=== PATIENT | female | born 1990 | race Caucasian/White ===

== ENCOUNTER → 2017-09-25 | Outpatient (CLI) | payer BC ==
[~2017-09-25] MED LIST: IBUP-1427 PO; PRENTAB26 PO; SINCALIDE INJ 1.3 MCG in SODIUM CHLORIDE 0.9% 100ML 100 ML IV ONE
--- NOTE | 2017-09-25 15:19 | DIAGNOSTIC IMAGING REPORT ---
NUCLEAR HEPATOBILIARY SCAN WITH EJECTION FRACTION IMAGING CLINICAL HISTORY: Right upper quadrant abdominal pain. COMPARISON STUDY: No priors. TECHNIQUE: Dynamic images of the liver and anterior abdomen were obtained every 5 minutes for a total of 60 minutes following the IV administration of 5.5mCi of technetium 99m Choletec. 1.3 mcg of sincalide was then injected with additional images acquired every 5 minutes for 45 minutes to calculate the gallbladder ejection fraction. FINDINGS: The hepatobiliary scan shows prompt and homogeneous hepatic uptake. There is visualized activity within the intra and extrahepatic biliary tree at 10 minutes, and within the gallbladder at 15 minutes. There is normal biliary to bowel transit, with small bowel visualized by 40 minutes. On the sincalide imaging, the gallbladder ejection fraction was measured at 42%. IMPRESSION: 1. Unremarkable nuclear hepatobiliary scan. There is no scintigraphic evidence of cholecystitis. 2. The gallbladder ejection fraction measured 42% which is normal. Electronically signed by: Gilson Oscar M.D. 09/25/2017 3:17 PM Dictated Date/Time: 09/25/2017 3:16 PM
== END | disposition home or self-care (01) ==
LOC: C.NUCL 12:01 → MERGE 13:00
PROVIDERS: ATTEND Physician Assistant

== ENCOUNTER 2023-03-13 10:07 | Observation (INO) ==
[2023-03-13] MEDS ORDERED: PENICILLIN G POTASSIUM 6 MU in DEXTROSE 5% 250 ML IV STA (11:12)
[2023-03-13] MEDS ORDERED: OXYTOCIN 30 UNITS/500 ML BAG IV PRN (11:12)
[2023-03-13] MEDS ORDERED: LIDOCAINE 1% LOCAL 20 ML VIAL INFIL PRN (11:12)
[2023-03-13 11:53] LABS: Hematocrit (blood only) 29.1 % (37.0-47.0); Mean Corpuscular Hemoglobin 31.7 pg (25.0-34.0); Mean Corpuscular Hgb Conc 34.4 g/dL (32.0-36.0); Mean Corpuscular Volume 92.4 fL (80.0-100.0); Mean Platelet Volume 9.2 fL (9.4-12.4); Platelet Count 178 K/uL (130-400); RDW Coefficient of Variation 14.6 % (11.5-14.5); RDW Standard Deviation 49.1 fL (36.4-46.3); Red Blood Count 3.15 M/uL (4.20-5.40); White Blood Count 6.46 K/ul (4.8-10.8)
[2023-03-13] MEDS ORDERED: SODIUM CHLORIDE 0.9% 250 ML IV PRN (12:07)
--- NOTE | 2023-03-13 13:03 | Ultrasound Report ---
US OB limited CLINICAL HISTORY: Evaluate estimated weight and amniotic fluid index. COMPARISON STUDY: None. FINDINGS: Real-time sonographic imaging of the fetus was performed with litigation claim representative images submitt ed. A full anatomic survey was not performed for this study. The fetus is in a cephalic presentation. There is an anterior placenta. No evidence for a subchorionic hematoma. The cervix was obscured by t he head. Amniotic fluid index is 10.5 cm. heart rate is 142 BPM. Average ultrasound age i s 37 weeks and 0 days +/- 2 weeks 4 days. Estimated weight is 6 pounds and 5 ounces +/- 15 ounc es. IMPRESSION: 1. A single viable 37 week and 0 day intrauterine gestation with a heart rate of 142 BPM. 2. Normal amniotic fluid volume. 3. Estimated weight is 6 pounds and 5 ounces +/- 15 ounces. ACT 112: Negative or not required by law. Electronically signed by: Dario Delong M.D. 03/13/2023 1:01 PM
[2023-03-13] MEDS: LACTATED RINGER'S 1,000 ML IV PRN ×2 (13:25→17:20)
[2023-03-13] MEDS ORDERED: PENICILLIN G POTASSIUM 3 MU in DEXTROSE 5% 100 ML IV PRN (14:12)
--- NOTE | 2023-03-13 17:39 | History & Physical Report ---
Date of Service March 13, 2023 Assessment & Plan (1) Amniotic fluid leaking: Plan: 32 yo at 35.3 wks with ? leaking since this morning, ROM + , Amnisure faint + with bloody show, no ferning VSS Afebrile FHR categ I contractions but Not in active Plan to observe monitor, repeat spekulum exam after trendelenburg position (2) uterine contractions in third trimester, antepartum: Admission and Anticipated Discharge Date Admission Date: March 13, 2023 History of Present Illness Primary Care Provider: José Bearden MD Late entry from this morning Patient is a 32 yo at 35.3 wks who woke up with wet underwear today, about palm size and irregular contractions but not painful No gush nor trickling She went to office where spek exam showed, no pooling, nitrazine negative and ROM plus test positive, cervix was checked digitally and it was 1 cm She was sent here She had bloody mucus on the way here We did Amnisure and it was faint positive, no ferning on slide Cervix was 1-2 cm/ thick/ -3 She had contractions every 2-4 min US showed: FINDINGS: Real-time sonographic imaging of the fetus was performed with signs and displays sales representative images submitted. A full anatomic survey was not performed for this study. The fetus is in a cephalic presentation. There is an anterior placenta. No evidence for a subchorionic hematoma. The cervix was obscured by the head. Amniotic fluid index is 10.5 cm. heart rate is 142 BPM. Average ultrasound age is 37 weeks and 0 days +/- 2 weeks 4 days. Estimated weight is 6 pounds and 5 ounces +/- 15 ounces. IMPRESSION: 1. A single viable 37 week and 0 day intrauterine gestation with a heart rate of 142 BPM. 2. Normal amniotic fluid volume. 3. Estimated weight is 6 pounds and 5 ounces +/- 15 ounces. She was dated with 8 wks US as 04/14/2023, LMP ? We kept her observed over hour, she had bloody mucus one time and no gush nor tricling I rechecked her cervix and it is 2-3 cm/ thick/ -3, posterior, feel a bag of amniotic sac Allergies Allergy/AdvReac Type Severity Reaction Status Date / Time milk AdvReac Gastrointestinal Verified 03/13/23 15:25 Upset Home Medications Medication Instructions Recorded Confirmed Type cyanocobalamin (vitamin B-12) 1,000 mcg PO DAILY 03/13/23 03/13/23 History 1,000 mcg tablet (Vitamin B-12) prenat.vits,adam,clb-iech-ptrkm 1 tab PO DAILY 03/13/23 03/13/23 History Patient History Medical History Anemia iron infusions during Asthma states is resolved 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" Surgical History History of cardiac radiofrequency ablation (RFA) 2005 Family History Daughter VSD (ventricular septal defect) ASD (atrial septal defect) Social History Smoking Status: Never smoker Hx Alcohol Use: No Hx Substance Use: No Preferred Language: Bulgarian Communication Ability: Effective Clerical Aide Required: No Beliefs That Will Affect Care: None marital status: Current Living Situation: Spouse and Family Feels Safe at Home: Yes Assistive Devices: None OB History FT Review of Systems as per Subjective / HPI Physical Exam Constitutional: WD/WN, vitals as above well developed, well nourished and comfortable Gastrointestinal (Abdomen): normal bowel sounds, soft, nontender, no hepatosplenomegaly (gravid) Genitourinary: OB Exam Monitor Tracing: + external uterine monitor used and + category I as HPI Results & Data Vital Signs (Past 12 Hours) Vital Signs Temp Pulse Resp BP 03/13/23 16:00 36.5 C 16 03/13/23 16:00 16 03/13/23 16:20 76 03/13/23 16:20 122/66 03/13/23 15:02 18 03/13/23 15:02 36.5 C 18 03/13/23 15:02 78 03/13/23 15:02 109/53 L 03/13/23 12:46 20 03/13/23 12:46 36.9 C 20 03/13/23 12:46 76 03/13/23 12:46 113/68 03/13/23 10:29 36.6 C 90 18 112/62 Laboratory Results Lab Results 03/13/23 03/13/23 03/13/23 Range/Units 11:30 11:30 11:32 WBC 6.46 (4.8-10.8) K/ul RBC 3.15 L (4.20-5.40) M/uL Hgb 10.0 L (12.0-16.0) g/dl Hct 29.1 L (37.0-47.0) % MCV 92.4 (80.0-100.0) fL MCH 31.7 (25.0-34.0) pg MCHC 34.4 (32.0-36.0) g/dL RDW Std Deviation 49.1 H (36.4-46.3) fL RDW Coeff of Shailesh 14.6 H (11.5-14.5) % Plt Count 178 (130-400) K/uL MPV 9.2 L (9.4-12.4) fL Amniotic Protein SARS-CoV-2, RNA, NAAT NEGATIVE (NEGATIVE) Blood Type O Positive Antibody Screen NEGATIVE Crossmatch See Detail 03/13/23 Range/Units 12:01 WBC (4.8-10.8) K/ul RBC (4.20-5.40) M/uL Hgb (12.0-16.0) g/dl Hct (37.0-47.0) % MCV (80.0-100.0) fL MCH (25.0-34.0) pg MCHC (32.0-36.0) g/dL RDW Std Deviation (36.4-46.3) fL RDW Coeff of Shailesh (11.5-14.5) % Plt Count (130-400) K/uL MPV (9.4-12.4) fL Amniotic Protein POS SARS-CoV-2, RNA, NAAT (NEGATIVE) Blood Type Antibody Screen Crossmatch
[2023-03-13] MEDS: BUTORPHANOL TARTRATE 1 MG/ML VIAL IV PRN (21:32)
--- NOTE | 2023-03-13 21:38 | Obstetrical Progress Note ---
Date of Service March 13, 2023 Assessment & Plan Admission and Anticipated Discharge Date Admission Date: March 13, 2023 Subjective Patient is reevaluated She has not had LOF since she came Still having contractions and they are getting more painful. Pain is 8/10 +FM FHR categ I TOCO: ctxs q 2-4 min Received 3 doses of PCN for unknown GBS She has been flat in bed for 30 min SSE: no pooling,small mucus on upper vagina and cervix is dry, no LOF with Valsalva maneuver No ferning on slide Cervix is unchanged, 2-3 cm/ thick/ firm/ -3, posterior GBS collected Discussed no signs of PPROM, contractions still present with no cervical change Recommended expectant management, pain control and observation overnight, pad for possible LOF and recheck cervix in morning She agrees All questions were answered. Results & Data Vital Signs (Past 12 Hours) Vital Signs Temp Pulse Resp BP 03/13/23 19:26 36.9 C 18 03/13/23 16:00 36.5 C 16 03/13/23 16:00 16 03/13/23 21:09 90 03/13/23 21:09 113/67 03/13/23 21:09 18 03/13/23 21:09 36.9 C 18 03/13/23 19:14 88 03/13/23 19:14 105/59 L 03/13/23 17:53 36.8 C 03/13/23 16:20 76 03/13/23 16:20 122/66 03/13/23 15:02 18 03/13/23 15:02 36.5 C 18 03/13/23 15:02 78 03/13/23 15:02 109/53 L 03/13/23 12:46 20 03/13/23 12:46 36.9 C 20 03/13/23 12:46 76 03/13/23 12:46 113/68 03/13/23 10:29 36.6 C 90 18 112/62
[2023-03-14] MEDS: BUTORPHANOL TARTRATE 1 MG/ML VIAL IV PRN (01:44)
[2023-03-14] MEDS: LACTATED RINGER'S 1,000 ML IV PRN (02:53)
--- NOTE | 2023-03-14 09:35 | Labor Progress Brief Note ---
Date of Service March 14, 2023 Assessment & Plan Admission and Anticipated Discharge Date Admission Date: March 13, 2023 Physical Exam Genitourinary: Manual OB Exam: + cervical dilation 1 cm and 2 cm, + cervical effacement 50% and + station high OB Exam Monitor Tracing: + external FHT monitor used, + external uterine monitor used, + category I and + normal FHT variability contractions have spaced out no leakage of fluid will d/c home not in labor and not ruptured Results & Data Vital Signs (Past 12 Hours) Vital Signs Temp Pulse Resp BP 03/14/23 07:24 37.1 C 82 20 99/58 L 03/14/23 04:52 16 03/14/23 04:52 36.7 C 16 03/14/23 04:54 77 107/58 L 03/14/23 03:00 74 86/50 L 03/14/23 02:59 80 85/46 L 03/13/23 23:51 18 03/13/23 23:51 36.7 C 18 03/13/23 23:53 86 03/13/23 23:53 106/55 L
== END 2023-03-14 09:46 | disposition home or self-care (01) | DRG 833 ==
LOC: OPB 10:07 → 4S1 10:11 → INTOOBSV 11:12 → 4S1 11:12

== ENCOUNTER 2023-03-29 00:22 | Inpatient (IN) ==
[2023-03-29] MEDS ORDERED: OXYTOCIN 30 UNITS/500 ML BAG IV PRN ×2 (00:44→05:07)
[2023-03-29] MEDS ORDERED: LIDOCAINE 1% LOCAL 20 ML VIAL INFIL PRN (00:44)
[2023-03-29] MEDS ORDERED: PENICILLIN G POTASSIUM 6 MU in DEXTROSE 5% 250 ML IV STA (00:51)
[2023-03-29] MEDS ORDERED: ePHEDrine sulfate 50 MG/ML AMP ONE (01:06)
[2023-03-29] MEDS ORDERED: BUPIVACAINE 0.25% PF 30 ML VIAL ONE (01:06)
[2023-03-29] MEDS ORDERED: SODIUM CHLORIDE 0.9% PF INJ 10 ML VIAL ONE (01:06)
[2023-03-29] MEDS: LACTATED RINGER'S 1,000 ML IV PRN ×2 (01:06→02:57)
[2023-03-29] MEDS ORDERED: LIDOCAINE 2%/EPINEPHRINE 1:200,000 20 ML PF ONE (01:06)
[2023-03-29] MEDS ORDERED: fentaNYL citrate PF 100 MCG/2 ML VIAL ONE (01:06)
[2023-03-29] MEDS ORDERED: fentaNYL 2MCG/ML ROPIVACAINE 1.25MG/ML 100 ML BAG EPI ONE (01:07)
--- NOTE | 2023-03-29 01:11 | History & Physical Report ---
Date of Service March 29, 2023 Assessment & Plan (1) : (2) Group B streptococcal carriage complicating : History of Present Illness Chief Complaint: labor Primary Care Provider: José Bearden MD 33 F P1001 at 37+ weeks seen in L&D and presents in active labor 8 cm dilated. GBS is positive. course uncomplicated. 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" Surgical History History of cardiac radiofrequency ablation (RFA) 2005 Family History Daughter VSD (ventricular septal defect) ASD (atrial septal defect) Social History Smoking Status: Never smoker Hx Alcohol Use: No Hx Substance Use: No Preferred Language: Estonian Communication Ability: Effective Under Trimmer Required: No Beliefs That Will Affect Care: None marital status: Current Living Situation: Spouse and Family Feels Safe at Home: Yes Safety Concerns: Feels Safe At This Time Assistive Devices: None 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 Review of Systems All systems reviewed & are unremarkable except as noted in HPI & below Physical Exam Constitutional: WD/WN, vitals as above Eyes: PERRL, conjunctivae normal, anicteric sclerae Respiratory: normal respiratory effort, lungs clear to auscultation Cardiovascular: RRR, no murmur, no edema Musculoskeletal: Extremities: extremities normal to inspection Skin: no rashes, warm and dry Neurologic: patellar DTR's 2+ bilat, sensation intact Psychiatric: A+Ox3, euthymic affect Genitourinary: Manual OB Exam: + cervical dilation 8 cm, + cervical effacement 90% and + station high OB Exam Monitor Tracing: + external FHT monitor used, + external uterine monitor used, + category I and + normal FHT variability Results & Data Vital Signs (Past 12 Hours) Vital Signs Temp Pulse Resp BP 03/29/23 00:57 36.3 C L 96 H 20 118/77 03/29/23 00:40 96 H 118/77 Code Status & VTE Plan VTE Prophylaxis Plan VTE Prophylaxis will be ordered: No Reason for no VTE drug order: Treatment not indicated Monitoring External Monitor Cat 1
[2023-03-29] MEDS ORDERED: fentaNYL 2MCG/ML ROPIVACAINE 1.25MG/ML 100 ML BAG EPI PRN (01:54)
[2023-03-29] MEDS ORDERED: NALOXONE HCL 0.4 MG/1 ML VIAL/CARP IV PRN (01:54)
[2023-03-29] MEDS ORDERED: diphenhydrAMINE 50 MG/ML VIAL IV PRN (01:54)
[2023-03-29] MEDS ORDERED: NALOXONE HCL 1 MG in SODIUM CHLORIDE 0.9% 1000ML 1,000 ML IV PRN (01:54)
[2023-03-29] MEDS ORDERED: ePHEDrine sulfate 50 MG/ML AMP IV PRN (01:54)
[2023-03-29] MEDS ORDERED: NALBUPHINE HCL INJ 10 MG/ML AMP IV PRN (01:54)
--- NOTE | 2023-03-29 01:54 | Anesthesiology Consultation ---
Date of Service March 29, 2023 Assessment & Plan ASA ASA2 Proposed Anesthesia Anesthesia Type: Labor Epidural Risk / Benefits Reviewed With: PT / POA / Parent / Guardian, Accepts Plan and Informed Consent Obtained History Height/Weight Height: 5 ft 7 in Weight: 75.75 kg Allergies Allergy/AdvReac Type Severity Reaction Status Date / Time milk AdvReac Gastrointestinal Verified 03/13/23 15:25 Upset Medications Home Medications Medication Instructions Recorded Confirmed Last Taken cyanocobalamin (vitamin B-12) 1,000 mcg PO DAILY 03/13/23 03/29/23 03/13/23 1,000 mcg tablet (Vitamin B-12) prenat.vits,adam,tqt-xpyz-fdibq 1 tab PO DAILY 03/13/23 03/29/23 03/13/23 Active Medications Generic Name Dose Route Start Last Admin Trade Name Freq PRN Reason Stop Dose Admin Lactated Ringer's 1,000 mls @ 125 mls/hr 03/29/23 00:44 03/29/23 01:06 Lr IV 03/31/23 00:43 125 mls/hr .Q8H PRN Administration L&D Protocol Protocol Ropivacaine 100 ml 03/29/23 01:54 03/29/23 02:17 Fentanyl 2mcg/Ml Ropivacaine 1.25mg/Ml 100 Ml Bag EPI 03/30/23 01:53 100 ml PRN PRN Administration Pain R/T Labor Protocol Past Medical History Medical History Anemia iron infusions during Asthma states is resolved Ketfa-Jehhqgrix-Mqxuc 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" Exercise / Class Metabolic Activity II 4-5 Yardwork/Stairs/Walk up hill Past Family History Family History Daughter VSD (ventricular septal defect) ASD (atrial septal defect) Past Surgical History Surgical History History of cardiac radiofrequency ablation (RFA) 2005 Past Anesthesia History No Hx of Anesthesia Complications and No Family Hx of Anesthesia Complications History of PONV No Hx of PONV and No Hx of Motion Sickness Social History Smoking Status: Never smoker Hx Alcohol Use: No Hx Substance Use: No Review of Systems denies fever/cough/ colds/ chest pain/ SOB/ BREANNA denies BREANNA Physical Exam Vital Signs Last Vital Signs Temp 36.3 C L 03/29/23 00:57 Pulse 123 H 03/29/23 02:24 Resp 20 03/29/23 00:57 BP 110/59 L 03/29/23 02:23 Pulse Ox 99 03/29/23 02:24 ENMT Mouth: no TMJ abnormality and no dentition abnormality Thyromental Distance: > or= 3.5 Finger Breadths Mallampati Class: II Neck neck extension not limited Respiratory normal respiratory effort; no respiratory distress Auscultation: lungs clear to auscultation bilaterally Cardiovascular Rate/Rhythm: regular rate and regular rhythm Neurologic moves all extremities Psychiatric Orientation: alert and oriented x 3 Testing Laboratory Results 03/29/23 01:02
[2023-03-29] MEDS ORDERED: ONDANSETRON INJ 2 MG/ML 2 ML VIAL IV PRN (01:55)
[2023-03-29 02:04] LABS: Hematocrit (blood only) 29.1 % (37.0-47.0); Mean Corpuscular Hemoglobin 31.8 pg (25.0-34.0); Mean Corpuscular Hgb Conc 34.4 g/dL (32.0-36.0); Mean Corpuscular Volume 92.7 fL (80.0-100.0); Mean Platelet Volume 9.8 fL (9.4-12.4); Platelet Count 184 K/uL (130-400); RDW Coefficient of Variation 14.3 % (11.5-14.5); RDW Standard Deviation 48.8 fL (36.4-46.3); Red Blood Count 3.14 M/uL (4.20-5.40); White Blood Count 7.42 K/ul (4.8-10.8)
[2023-03-29] MEDS ORDERED: PENICILLIN G POTASSIUM 3 MU in DEXTROSE 5% 100 ML IV PRN (03:45)
--- NOTE | 2023-03-29 03:46 | Labor Progress Brief Note ---
Date of Service March 29, 2023 Assessment & Plan Admission and Anticipated Discharge Date Admission Date: March 29, 2023 Physical Exam Genitourinary: Manual OB Exam: + cervical dilation 10 cm, + cervical effacement 100%, + station -2 and + amniotic fluid clear OB Exam Monitor Tracing: + external FHT monitor used, + external uterine monitor used, + category I and + normal FHT variability bedside ultrasound confirms vertex presentation Results & Data Vital Signs (Past 12 Hours) Vital Signs Temp Pulse Resp BP Pulse Ox 03/29/23 00:57 36.3 C L 96 H 20 118/77 03/29/23 03:44 78 99 03/29/23 03:39 88 100 03/29/23 03:34 104 H 100 03/29/23 03:31 101 H 108/61 03/29/23 03:29 99 H 100 03/29/23 03:24 93 H 100 03/29/23 03:19 105 H 100 03/29/23 03:15 99 H 98/56 L 03/29/23 03:14 100 H 99 03/29/23 03:09 88 99 03/29/23 03:04 110 H 99 03/29/23 02:59 105 H 99 03/29/23 03:00 113 H 93/50 L 03/29/23 02:54 108 H 100 03/29/23 02:49 106 H 99 03/29/23 02:45 100 H 105/58 L 03/29/23 02:44 96 H 99 03/29/23 02:39 103 H 99 03/29/23 02:34 108 H 99 03/29/23 02:30 18 03/29/23 02:30 37.2 C 18 03/29/23 02:29 99 03/29/23 02:29 109 H 03/29/23 02:29 109 H 107/57 L 03/29/23 02:20 18 03/29/23 02:20 18 03/29/23 02:28 105 H 111/59 L 03/29/23 02:25 104 H 18 109/55 L 03/29/23 02:24 123 H 99 03/29/23 02:23 104 H 110/59 L 03/29/23 02:21 114 H 103/58 L 03/29/23 02:19 101 H 111/56 L 99 03/29/23 02:17 103 H 109/55 L 03/29/23 02:15 107 H 18 110/58 L 03/29/23 02:14 107 H 100 03/29/23 02:13 110 H 117/63 03/29/23 02:09 108 H 97 03/29/23 02:04 115 H 98 03/29/23 00:40 96 H 118/77
[2023-03-29] MEDS ORDERED: DIPHTHERIA/TETANUS/PERTUSSIS 0.5mL SYR/VIAL (Age 7+yrs) IM ONE (05:07)
[2023-03-29] MEDS ORDERED: HYDROCORTISONE ACETATE 25 MG SUPP PR PRN (05:07)
[2023-03-29] MEDS ORDERED: BENZOCAINE 20% AER SPR 82.5 GM CAN EXT PRN (05:07)
[2023-03-29] MEDS ORDERED: ACETAMINOPHEN 325 MG TAB PO PRN (05:07)
--- NOTE | 2023-03-29 05:10 | Delivery Summary ---
Vaginal Delivery Summary Date of Service March 29, 2023 Vaginal Delivery Summary Delivery Note live male JACINTO with delayed cord clamping and Apgars 9/9 weight pending. Cord blood obtained followed by spontaneous delivery of intact placenta with 3VC. Small 1st degree vagianl tear repaired with 3/0 Vicryl. EBL 150 ml. Final sponge, needle and instrument count are correct. Mom and baby stable.
[2023-03-29] MEDS ORDERED: CYANOCOBALAMIN (B-12) 500 MCG TABLET PO SCH (09:00)
[2023-03-29] MEDS ORDERED: NON-FORMULARY MEDICATION (Prenat.Vits,Cal,Min-Iron-Folic Tablet) PO SCH (09:00)
[2023-03-29] MEDS: PRENATAL VITAMIN 1 TAB PO SCH (09:15)
[2023-03-29] MEDS: DOCUSATE SODIUM 100 MG CAP PO SCH (09:15)
[2023-03-29] MEDS ORDERED: MEASLES, MUMPS & RUBELLA VIRUS VIAL SQ ONE (11:04)
--- NOTE | 2023-03-29 17:41 | Anesthesia Procedure Note ---
Date of Service March 29, 2023 Anesthesia Post Epidural Note Vital Signs Vital Signs: Temp Pulse Resp BP Pulse Ox O2 Del Method 98.8 F 97 H 16 98/61 L 97 Room Air 03/29/23 15:30 03/29/23 15:30 03/29/23 15:30 03/29/23 15:30 03/29/23 15:30 03/29/23 15:30 Notes Mental Status: alert / awake / arousable and participated in evaluation Nausea / Vomiting: adequately controlled Pain: adequately controlled Airway Patency, RR, SpO2: stable & adequate BP & HR: stable & adequate Hydration State: stable & adequate Neuraxial Anesthesia: was administered and sensory block is resolving Anesthetic Complications: no major complications apparent and Pt Satisfied with anesthetic care Epidural: Removed without complications and With tip intact
[2023-03-29] MEDS: IBUPROFEN 600 MG TAB PO PRN (18:24)
[2023-03-30 06:47] LABS: Hematocrit (blood only) 25.8 % (37.0-47.0); Hemoglobin 8.6 g/dl (12.0-16.0); Mean Corpuscular Hemoglobin 31.9 pg (25.0-34.0); Mean Corpuscular Hgb Conc 33.3 g/dL (32.0-36.0); Mean Corpuscular Volume 95.6 fL (80.0-100.0); Mean Platelet Volume 9.7 fL (9.4-12.4); Platelet Count 144 K/uL (130-400); RDW Coefficient of Variation 14.6 % (11.5-14.5); White Blood Count 7.14 K/ul (4.8-10.8)
[2023-03-30] MEDS: DOCUSATE SODIUM 100 MG CAP PO SCH (09:06)
[2023-03-30] MEDS: IBUPROFEN 600 MG TAB PO PRN (09:06)
[2023-03-30] MEDS: PRENATAL VITAMIN 1 TAB PO SCH (09:06)
--- NOTE | 2023-03-30 09:45 | Obstetrical Progress Note ---
Date of Service March 30, 2023 Assessment & Plan (1) Normal course: PPD #1 pt doing well wishes to be discharged home Subjective Ambulation: ambulating normally Voiding: no voiding problems Passing Gas:: Yes Diet Tolerance:: regular diet Lochia:: Small Feeding Type:: breast feeding Review of Systems All systems reviewed & are unremarkable except as noted in HPI & below Physical Exam Constitutional WD/WN, vitals as above well developed and well nourished Eyes PERRL, conjunctivae normal, anicteric sclerae Neck trachea midline, no thyromegaly Respiratory normal respiratory effort, lungs clear to auscultation Auscultation: no crackles, no rales and no wheezes Cardiovascular RRR, no murmur, no edema Gastrointestinal (Abdomen) normal bowel sounds, soft, nontender, no hepatosplenomegaly Uterus is below umbilicus Musculoskeletal no cyanosis or clubbing, extremities motor strength 5/5 Skin no rashes, warm and dry Neurologic patellar DTR's 2+ bilat, sensation intact Psychiatric A+Ox3, euthymic affect Genitourinary normal external appearance Results & Data Vital Signs (Past 12 Hours) Vital Signs Temp Pulse Resp BP Pulse Ox O2 Del Method 03/30/23 09:07 37.0 C 84 20 102/66 100 Room Air 03/30/23 03:42 37.2 C 80 18 111/73 03/29/23 23:52 36.8 C 80 18 99/64 L
[2023-03-30] MEDS ORDERED: bisacodyL 5 MG TABEC PO SCH (20:00)
[2023-03-31] MEDS ORDERED: bisacodyL 10 MG SUPP PR PRN (05:07)
== END 2023-03-30 13:35 | disposition home or self-care (01) | DRG 807 ==
LOC: OPB 00:22 → 4S1 00:25 → 4E2 09:24

== ENCOUNTER 2024-06-12 01:29 | Inpatient (IN) ==
[2024-06-12] MEDS ORDERED: OXYTOCIN 30 UNITS/NSS 30 UNITS/500 ML BAG IV PRN ×2 (02:13→11:47)
[2024-06-12] MEDS ORDERED: LIDOCAINE 1% LOCAL 20 ML VIAL INFIL PRN (02:13)
[2024-06-12] MEDS ORDERED: ROPIVACAINE 0.5% PF 5 MG/ML 20 ML VIAL EPI PRN (02:17)
[2024-06-12] MEDS ORDERED: ePHEDrine sulfate 50 MG/ML AMP IV PRN (02:17)
[2024-06-12] MEDS ORDERED: diphenhydrAMINE 50 MG/ML VIAL IV PRN (02:17)
[2024-06-12] MEDS ORDERED: NALBUPHINE HCL 5 MG in SYRINGE 0 ML IV PRN (02:17)
[2024-06-12] MEDS ORDERED: NALOXONE HCL 1 MG in SODIUM CHLORIDE 0.9% 1,000 ML IV PRN (02:17)
[2024-06-12] MEDS ORDERED: NALOXONE HCL 0.4 MG/1 ML VIAL/CARP IV PRN (02:17)
[2024-06-12] MEDS ORDERED: LIDOCAINE 2% MPF LOCAL 5 ML VIAL EPI PRN (02:17)
[2024-06-12] MEDS ORDERED: BUPIVACAINE 0.25% PF 30 ML VIAL EPI PRN (02:17)
[2024-06-12] MEDS ORDERED: SODIUM CHLORIDE 0.9% PF INJ 10 ML VIAL EPI PRN (02:17)
[2024-06-12] MEDS ORDERED: ONDANSETRON INJ 2 MG/ML 2 ML VIAL IV PRN (02:17)
[2024-06-12] MEDS ORDERED: fentaNYL citrate PF 100 MCG/2 ML VIAL EPI PRN (02:17)
--- NOTE | 2024-06-12 02:30 | Anesthesiology Consultation ---
Date of Service June 12, 2024 Assessment & Plan ASA ASA2 Proposed Anesthesia Anesthesia Type: Labor Epidural Risk / Benefits Reviewed With: PT / POA / Parent / Guardian, Accepts Plan and Informed Consent Obtained History Height/Weight Height: 5 ft 6 in Weight: 73.936 kg Allergies Allergy/AdvReac Type Severity Reaction Status Date / Time milk AdvReac Gastrointestinal Verified 06/12/24 02:18 Upset Medications Home Medications Medication Instructions Recorded Confirmed Last Taken cyanocobalamin (vitamin B-12) 1,000 mcg PO DAILY 03/13/23 06/12/24 06/11/24 1,000 mcg tablet (Vitamin B-12) prenat.vits,adam,kgk-boqc-bxetf 1 tab PO DAILY 03/13/23 06/12/24 06/11/24 Past Medical History Medical History Anemia iron infusions during Asthma states is resolved Ndwif-Trynafxfn-Fdgtv 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" Exercise / Class Metabolic Activity II 4-5 Yardwork/Stairs/Walk up hill Past Family History Family History Daughter VSD (ventricular septal defect) ASD (atrial septal defect) Past Surgical History Surgical History History of cardiac radiofrequency ablation (RFA) 2005 Past Anesthesia History No Hx of Anesthesia Complications and No Family Hx of Anesthesia Complications History of PONV No Hx of PONV and No Hx of Motion Sickness Social History Smoking Status: Never smoker Hx Alcohol Use: No Hx Substance Use: No Review of Systems denies fever/cough/ colds/ chest pain/ SOB/ BREANNA denies BREANNA Physical Exam Vital Signs Last Vital Signs Temp 36.8 C 06/12/24 01:50 Pulse 93 H 06/12/24 01:47 Resp 18 06/12/24 01:50 BP 107/56 L 06/12/24 01:47 ENMT Mouth: no TMJ abnormality and no dentition abnormality Thyromental Distance: > or= 3.5 Finger Breadths Mallampati Class: II Neck neck extension not limited Respiratory normal respiratory effort; no respiratory distress Auscultation: lungs clear to auscultation bilaterally Cardiovascular Rate/Rhythm: regular rate and regular rhythm Neurologic moves all extremities Psychiatric Orientation: alert and oriented x 3
--- NOTE | 2024-06-12 02:40 | History & Physical Report ---
Date of Service June 12, 2024 Assessment & Plan (1) uterine contractions in third trimester, antepartum: Plan: Admit in active labor Anticipate normal delivery (2) : Admission and Anticipated Discharge Date Admission Date: June 12, 2024 History of Present Illness Chief Complaint: onset of labor Primary Care Provider: José Bearden MD 34 F P2002 at 36.1 weeks admitted in active labor. GBS is unknown. uncomplicated. 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" Surgical History History of cardiac radiofrequency ablation (RFA) 2005 Family History Daughter VSD (ventricular septal defect) ASD (atrial septal defect) Social History Smoking Status: Never smoker Hx Alcohol Use: No Hx Substance Use: No Preferred Language: Azerbaijani Communication Ability: Effective Telecommunications Project Manager Required: No Beliefs That Will Affect Care: None marital status: Current Living Situation: Spouse and Family Feels Safe at Home: Yes Assistive Devices: None 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 Review of Systems All systems reviewed & are unremarkable except as noted in HPI & below Physical Exam Constitutional: WD/WN, vitals as above Eyes: PERRL, conjunctivae normal, anicteric sclerae Respiratory: normal respiratory effort, lungs clear to auscultation Cardiovascular: RRR, no murmur, no edema Gastrointestinal (Abdomen): Inspection/Auscultation: abdomen normal to inspection Musculoskeletal: Extremities: extremities normal to inspection Skin: no rashes, warm and dry Neurologic: patellar DTR's 2+ bilat, sensation intact Psychiatric: A+Ox3, euthymic affect Genitourinary: Manual OB Exam: + cervical dilation 5 cm, + cervical effacement 50% and + station -2 OB Exam Monitor Tracing: + external FHT monitor used, + external uterine monitor used, + category I and + normal FHT variability Results & Data Vital Signs (Past 12 Hours) Vital Signs Temp Pulse Resp BP 06/12/24 01:50 36.8 C 18 06/12/24 01:47 93 H 107/56 L Monitoring External Monitor Cat 1
[2024-06-12] MEDS: LACTATED RINGER'S 1,000 ML IV PRN (02:43)
[2024-06-12] MEDS: PENICILLIN GK 6 MU in DEXTROSE 5% 250 ML IV STA (02:43)
[2024-06-12] MEDS: LIDOCAINE 2%/EPINEPHRINE 1:200,000 20 ML PF EPI STA (03:03)
[2024-06-12] MEDS: fentaNYL citrate PF 100 MCG/2 ML VIAL EPI STA (03:03)
[2024-06-12] MEDS: BUPIVACAINE 0.25% PF 30 ML VIAL EPI STA (03:03)
[2024-06-12] MEDS: fentANYL 2 MCG/ML BUPIVacaine 0.125%-NSS 100ML BAG EPI PRN (03:04)
[2024-06-12 03:15] LABS: Hematocrit (blood only) 28.3 % (37.0-47.0); Hemoglobin 9.5 g/dl (12.0-16.0); Mean Corpuscular Hemoglobin 31.6 pg (25.0-34.0); Mean Corpuscular Hgb Conc 33.6 g/dL (32.0-36.0); Mean Platelet Volume 9.2 fL (9.4-12.4); Platelet Count 162 K/uL (130-400); RDW Coefficient of Variation 14.6 % (11.5-14.5); RDW Standard Deviation 50.4 fL (36.4-46.3); Red Blood Count 3.01 M/uL (4.20-5.40)
[2024-06-12] MEDS: SODIUM CHLORIDE 0.9% PF INJ 10 ML VIAL ONE (04:16)
[2024-06-12] MEDS: fentANYL 2 MCG/ML BUPIVacaine 0.125%-NSS 100ML BAG ONE (04:16)
[2024-06-12] MEDS: fentaNYL citrate PF 100 MCG/2 ML VIAL ONE (04:16)
[2024-06-12] MEDS: LIDOCAINE 2%/EPINEPHRINE 1:200,000 20 ML PF ONE (04:16)
[2024-06-12] MEDS: ePHEDrine sulfate 50 MG/ML AMP ONE (04:16)
[2024-06-12] MEDS: BUPIVACAINE 0.25% PF 30 ML VIAL ONE (04:16)
[2024-06-12] MEDS: SODIUM CHLORIDE 0.9% PF INJ 10 ML VIAL EPI STA (04:17)
[2024-06-12] MEDS: PENICILLIN GK 3 MU in DEXTROSE 5% 100 ML IV PRN (06:14)
--- NOTE | 2024-06-12 06:35 | Labor Progress Brief Note ---
Date of Service June 12, 2024 Assessment & Plan Admission and Anticipated Discharge Date Admission Date: June 12, 2024 Physical Exam Genitourinary: Manual OB Exam: + cervical dilation 5 cm, + cervical effacement 90%, + station -2 and + amniotic fluid clear OB Exam Monitor Tracing: + external FHT monitor used, + external uterine monitor used, + category I and + normal FHT variability AROM with Amni-hook clear fluid will start Oxytocin to augment contractions Results & Data Vital Signs (Past 12 Hours) Vital Signs Temp Pulse Resp BP Pulse Ox 06/12/24 06:30 96 H 100 06/12/24 06:28 88 114/57 L 06/12/24 06:25 81 99 06/12/24 06:20 80 98 06/12/24 06:15 101 H 98 06/12/24 06:13 93 H 98/58 L 06/12/24 06:10 90 98 06/12/24 06:05 75 98 06/12/24 06:01 18 06/12/24 06:01 18 06/12/24 06:00 77 97 06/12/24 05:58 78 89/55 L 06/12/24 05:55 76 97 06/12/24 05:50 81 97 06/12/24 05:45 82 98 06/12/24 05:43 79 96/52 L 06/12/24 05:40 87 98 06/12/24 05:35 82 98 06/12/24 05:34 84 101/55 L 06/12/24 05:30 83 98 06/12/24 05:29 18 06/12/24 05:29 18 06/12/24 05:25 89 99 06/12/24 05:20 87 96 06/12/24 05:15 81 98 06/12/24 05:13 85 93/51 L 06/12/24 05:10 81 97 06/12/24 05:05 76 96 06/12/24 05:00 72 96 06/12/24 04:58 83 90/54 L 06/12/24 04:55 86 96 06/12/24 04:50 86 97 06/12/24 04:45 85 98 06/12/24 04:43 78 99/55 L 06/12/24 04:40 78 97 06/12/24 04:35 80 97 06/12/24 04:30 18 06/12/24 04:30 86 97 06/12/24 04:28 81 92/54 L 06/12/24 04:25 81 97 06/12/24 04:20 77 97 06/12/24 04:15 18 06/12/24 04:15 79 98 06/12/24 04:14 78 99/59 L 06/12/24 04:10 80 97 06/12/24 04:05 89 98 06/12/24 04:00 91 H 97 06/12/24 03:58 87 95/54 L 06/12/24 03:55 80 97 06/12/24 03:50 82 97 06/12/24 03:45 18 06/12/24 03:45 84 97 06/12/24 03:44 81 95/54 L 06/12/24 03:40 80 98 06/12/24 03:35 85 97 06/12/24 03:30 88 97 06/12/24 03:28 93 H 106/59 L 06/12/24 03:25 85 97 06/12/24 03:20 83 97 06/12/24 03:15 18 06/12/24 03:15 89 97 06/12/24 03:12 93 H 107/59 L 06/12/24 03:10 18 06/12/24 03:10 98 06/12/24 03:10 100 H 06/12/24 03:10 86 105/57 L 06/12/24 03:08 87 105/75 06/12/24 03:06 87 108/56 L 06/12/24 03:05 18 06/12/24 03:05 88 98 06/12/24 03:04 85 108/55 L 06/12/24 03:02 90 111/57 L 06/12/24 03:01 91 H 109/55 L 06/12/24 03:00 18 06/12/24 03:00 94 H 99 06/12/24 02:55 97 H 96 06/12/24 02:50 113 H 100 06/12/24 02:48 121 H 92 06/12/24 02:45 100 H 100 06/12/24 01:50 36.8 C 18 06/12/24 01:47 93 H 107/56 L
[2024-06-12] MEDS: OXYTOCIN 30 UNITS/NSS 30 UNITS/500 ML BAG IV PRN (07:18)
--- OUTSIDE RECORDS SUMMARY | 2024-06-12 11:39 | External Medical Summary | Summary of Care ---
Author Name Unknown Organization [facility] Address [address] [place] [address] Phone [phone] Care Team Providers Care Manager Wealth Management Name Role Phone José Bearden MD Primary Care Provider [phone] Reason for Visit * Reason Onset Date Comments Status Check Anemia Follow-Up 05/24/2024 Encounter Details Date Type Department Care Team (Late st Contact Info) Description 05/24/2024 2:00 PM EDT Pharmacy Pharmacy, [place] [address], [place] [id number] Clinic, Anemia [address], [place] [id number] Antepartum anemia complicating * Allergies Active Allergy Reactions Criticality Noted Date Comments Lactose Intolerance 12/06/2005 documented as of this encounter (statuses as of 05/24/2024) Medications Medication Sig Dispensed Refills Start Date End Date Status Fluticasone Propionate 50 MCG/ACT Nasal Suspension Administer 1 [place] into nostril in the morning. Active Ketotifen Fumarate 0.025 % Ophthalmic Solution 1 Drop in the morning and 1 Drop before bedtime. Active Vitamin 27-0.8 MG Oral Tablet Take by mouth . Active B-12 50 MCG Oral Tablet Take by mouth. Active Vitamin B-12 1000 MCG Oral Tablet (Cyanocobalamin) Take 1 Tablet by mouth in the morning. 30 Tablet 5 04/16/2024 Active documented as of this encounter (statuses as of 05/24/2024) Active Problems Problem Noted Date Diagnosed Date Iron deficiency anemia 04/29/2024 Echogenic intracardiac focus of fetus on ultrasound 02/16/2024 Last Assessment & Plan: Reviewed that today's ultrasound notes an echogenic intracardiac focus (EIF). Explained that in a woman who is at low risk for aneuploidy (age less than 35, normal genetic screening), with an otherwise normal ultrasound, echogenic intracardiac focus (EIF) is generally considered a normal variant of and no further work-up is recommended. Advised, however, that the only definitive method of detecting aneuploidy is with amniocentesis. Explained that an echogenic intracardiac focus (EIF) has no impact on cardiac function. Patient desires genetic screening in . We discussed cffDNA and it was ordered today. 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 Asymptomatic. Saw cardiology 12/04/22 who states ""The Hrenq-Kmaxttquh-Idhge he has been cured. She has no history suggestive of any significant arrhythmias. No further evaluation is necessary. She may proceed with delivery in the standard fashion without any restrictions" Last Assessment & Plan: Discussion 1. Arrhythmia that occurs in the absence of organic heart disease is almost always benign. 2. Treatment for intermittent symptoms is indicated based on severity of patient symptoms and interference with quality of life. 3. Treatment is always indicated for sustained symptomatic arrhythmia. 4. Ideally, should be postponed until the arrhythmia has been eliminated or at least controlled, preferably by nonpharmacologic means. Recommendations 1. Discussed increased risk of arrhythmia exacerbations in . 2. Recommend limiting caffeine intake and other stimulants. Normal 12/12/2023 Short interval between pregn ancies complicating , antepartum 12/12/2023 Overview: Last delivery 03/2023 Last Assessment & Plan: CONSIDERATIONS: Reviewed that a short Inter- Interval (IPI) may place the patient at an increased risk for , low weight, and SGA . IPI is defined as less than a year from the time of delivery of one to conception of the next . Some studies show that a short IPI may be associated with an increased risk for maternal , third trimester bleeding, premature rupture of membranes, puerperal endometritis, and anemia as well as placental abruption. RECOMMENDATION: There are no quality data to support delaying conception after early loss to prevent subsequent early loss or other complications. Small observational studies have shown no benefit to delayed conception after early loss. After a stillbirth, we suggest women wait at least 6 months before conceiving again. After a delivery, we suggest women wait 12 months before conceiving again. Interdelivery interval (IDI) of 18 to 24 months have not been significantly associated with maternal morbidity in women undergoing Trial of Labor After . Family history of congenital heart defect 2023 Overview: G1 daughter with ASD/VSD, requiring open heart surgery. Last Assessment & Plan: She presents for a anatomy survey. She has a history of WPW s/p ablation and this is a short interval . Her first child was born with an ASD/VSD. We reviewed the results of today's ultrasound. The estimated weight is appropriate for gestational age An echogenic intracardiac focus is noted. The remainder of the visualized anatomy is unremarkable in appearance. There are no additional cardiac findings appreciated. The amniotic fluid amount appears normal. We discussed that ultrasound is not able to identify all anomalies, but it is reassuring that no anomalies were seen today. Polyp of cervix 12/12/2023 Overview: Noted on exam at [facility] Antepartum anemia complicating 023 Overview: Anemic at 28w. Recommend IV iron Estimated Date of Delivery Comme nts Yes 07/09/2024 Based on Ultraso und documented as of this encounter (statuses as of 05/24/2024) Resolved Problems Problem Noted Date Diagnosed Date Resolved Date GBS (group B Streptococcus c april), +RV culture, currently 03/20/2023 04/03/2023 Maternal asthma complicating 11/04/2022 04/03/2023 Last Assessment & Plan: CONSIDERATIONS: Asthma symptoms may improve, worsen or remain unchanged in severity in . Asthma is generally managed the same in as in the non- patient, as asthma-control medications are considered safe in . If asthma is well-controlled with medications prior to , it is recommended to continue the same medication regimen during . A patient should seek medical care immediately if an asthma flare does not respond to therapy. Mild and well-controlled moderate asthma can be associated with excellent maternal and outcomes. Severe and poorly controlled asthma may be associated with increased morbidity and mortality. Asthma management includes monitoring of lung function with pulmonary function testing (when indicated), avoidance of triggers (such as tobacco smoke, mold, dust mite exposure, animal dander and cockroaches), and a step-care approach to pharmacologic therapy based on the severity of the patient's asthma. RECOMMENDATIONS: Inhaled corticosteroids are the mainstay of therapy for all patients except those with intermittent asthma. o If patients are routinely requiring rescue inhaler (such as albuterol, Ventolin, ProAir, Atrovent, or Proventil) use more than twice weekly, we recommend adding a low-dose inhaled corticosteroid. [Pulmicort (budesonide) is preferred to use in .] o If patients are routinely requiring rescue inhaler use daily, we recommend adding a combined low-dose inhaled corticosteroid/long-acting beta-agonist [such as Advair (fluticasone/salmeterol) or Symbicort (budesonide/formoterol)] or a medium dose inhaled corticosteroid. o Patient should discuss these treatment options with her primary OB provider or PCP. Typically, patients do not need stress dose steroids as long as they continue their usual dose perioperatively (or during labor) and do not have primary renal failure or other problems with the pituitary axis. Medications such as prostaglandin F2a (including Hemabate), ergonovine, and indomethacin (in patients who are aspirin allergic) should be used with caution. Patients with moderate or severe persistent asthma should have Maternal- Medicine ultrasound for anatomy at 19-20 weeks. surveillance with growth ultrasounds and non-stress tests should be considered starting at 32 weeks. Supervision of high risk pre gnancy in third trimester 11/01/2022 04/03/2023 Need for rubella vaccination 09/10/2022 04/03/2023 Overview: Will need vaccinated Supervision of other normal , antepartum 09/05/2022 11/04/2022 Family history of cardiac disorder 09/05/2022 04/03/2023 Overview: -Pt with Luque Parkinson White syndrome, s/p cardiac ablation 2005 -First child born 10/09/2013 with ASD and VSD, s/p repair at 4 months of age at [facility] [Doing well now, aged 9 years] -Declines Genetic counseling Last Assessment & Plan: We reviewed that the risk for congenital cardiac defect in any is about 0.5% but this increases to 2-3% for any cardiac defect when there is an affected first degree relative of the fetus (parent or sibling). echo may not detect small VSD (<2mm) but is effective in diagnosis of most cyanotic lesions and many other clinically relevant cardiac defects. Today's exam did not suggest any evidence of cardiac abnormality. Anemia during 08/09/201303/2022 , normal first 03/01/201310/02 Overview: Pt received tdap 08/20/13 Helena Soria RN Patient declined flu vaccine. 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 She likely attributes this to second trimester . -Declined genetic counseling -Per cardiology 12/04/22: "The Ojbyi-Uhkmgyrqq-Cfurq he has been cured. She has no history suggestive of any significant arrhythmias. No further evaluation is necessary. She may proceed with delivery in the standard fashion without any restrictions" Last Assessment & Plan: Follow-up with cardiology scheduled. If any further medical management is needed, please advise so that we can determine whether growth surveillance is recommended. 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 11/05/2022 Overview: ICD-10 update of inactive term BENIGN NEOPLASM SKIN NOS 03/27/200403/2022 documented as of this encounter (statuses as of 05/24/2024) Immunizations Name Administration Dates Next Due DTWP HIB - Dipth/Tet/Whole C ell Pert/HIB 06/19/1995,10/08/1991,1990, 990,1990 HIB PRP-OMP, 3 dose (Pedvax) 1990 HPV Vaccine, 4-Valent 08/01/2009,05/31/2009 Hepatitis B, 0-19 yrs 04/14/2002,07/02/2001,05/01 MMR - Measles/Mumps/Rubella Vaccine 06/19/1995,0 06/25/1991 OPV - Polio Virus Vaccine (Oral) 995,10/08/1991,1990, 990 TDAP (age 10 and older)(Boostrix) 08/20/2013 documented as of this encounter Social History Tobacco Use Types Packs/Day Years Used Date Smoking Tobacco: Never Smokeless Tobacco: Never Comments:no passive smoke ex posure Alcohol Use Standard Drinks/Week Comments Not Currently 0 (1 standard drink = 0.6 oz pur e alcohol) socially PHQ-2 Answer Date Recorded PHQ Adult Total Score 0 04/14/2024 Hunger Vital Sign Answer Date Recorded Within the past 12 months, y ou worried that your food would run out before you got the money to buy more. Never true 04/14/20 Within the past 12 months, t he food you bought just didn't last and you didn't have money to get more. Never true 04/14/2024 [place] Depression Scale Answer Date Recorded [place] Depression Scale Total 0 12/12/2023 The thought of harming myself has occurred to me . Never 12/12/2023 Childcare Answer Date Recorded Do you feel overwhelmed with taking care of a child, family member or friend? No 04/14/2024 Does your family need help f inding childcare? (Household - for ages 0-17 years) Not on file 04/14/2024 Clothing Answer Date Recorded Have you been unable to get clothing when it was really needed? No 04/14/2024 Is your family able to get c lothes or diapers when needed? (Household - for ages 0-17 years) Not on file 04/14/2024 Personal Safety Answer Date Recorded Do you feel unsafe or have concerns for your saf ety? No 04/14/2024 Do you have concerns for you r family's safety? (Household - for ages 0-17 years) Not on file 04/14/2024 Utilities Answer Date Recorded Do you have trouble paying y our heating, water, or electric bill? No 04/14/2024 Is your family able to pay t he heat, water, or electric bill? (Household - for ages 0-17 years) Not on file 04/14/2024 Does your family have access to good internet? (Household - for ages 0-17 years) Not on file 04/14/2024 Employment Status Answer Date Recorded Are you unemployed or without regular income? No 04/14/2024 Does the household have a re gular source of income? (Household - for ages 0-17 years) Not on file 04/14/2024 Social Connections Answer Date Recorded How often do you feel lonely or isolated from th ose around you? Never 04/14/2024 Financial Resource Strain Answer Date R ecorded Do you have any trouble payi ng for your medications, or do you think you might in the future? No 04/14/2024 Does your family have troubl e paying for medicine? (Household - for ages 0-17 years) Not on file 04/14/2024 Transportation Needs Answer Date Record ed READ ONLY Do you have troubl e getting a ride to medical visits or work? Never True 04/14/2024 Does your family have a hard time getting a ride to doctors visits? (Household - for ages 0-17 years) Not on file 04/14/2024 Has lack of transportation k ept you from medical appointments, meetings, work, or from getting things needed for daily living? Check all that apply. (Adult - for ages 18 years and over) Not on file 04/14/2024 Do you (or your family) have trouble finding or paying for a ride (transportation)? (Household - for ages 0-17 years) Not on file 04/14/2024 Housing Stability Answer Date Recorded Do you currently live in a s helter or have no steady place to sleep at night? No 04/14/2024 READ ONLY Do you think you a re at risk of becoming homeless? No 04/14/2024 Does your family worry about paying for your home or becoming homeless? (Household - for ages 0-17 years) Not on file 0 04/14/2024 Are you homeless or worried that you might be in the future? (Adult - for ages 18 years and over) Not on file Are you (or your family) kumar eless or worried that you might be in the future? (Household - for ages 0-17 years) Not on file Food Insecurity Answer Date Recorded Do you need food for this week? No 04/14/2024 Are you able to get enough f ood for your family? (Household - for ages 0-17 years) Not on file 04/14/2024 Does your family need food t his week? (Household - for ages 0-17 years) Not on file 04/14/2024 Do you always have enough fo od for your family? (Household - for ages 0-17 years) Not on file 04/14/2024 Estimated Date of Delivery Comme nts Yes 07/09/2024 Based on Ultraso und Sex and Gender Information Value Date Recorded Sex Assigned at Female 09/05/2022 9:50 AM EDT Gender Identity Female 09/05/2022 9:50 AM EDT Sexual Orientation Straight 09/05/2022 9: 50 AM EDT Job Start Date Occupation Industry Not on file Not on file Not on file documented as of this encounter Progress Notes * Shellie Rajput RPh - 05/24/2024 2:57 PM EDT CBCd, ferritin, iron screen, retic panel, B12, FA ordered for 06/21/24. Shellie Rajput PharmD, [facility] Clinical Pharmacist [facility] (P: [phone]) 05/24/2024 2:58 PM * Mary Ellen Chiu, mobile patrol officer - 05/24/2024 1:19 PM EDT Patient Phone Numbers Call to patient to schedule labs. Patient received Venofer 300 mg x 3 on 05/05/2024, 05/14/2024 and 05/21/2024. Labs due on 06/21/2024. GA: [id number] Estimated Date of Delivery: 07/09/24 Pharmacist - please place appropriate lab orders. Thank you, Mary Ellen Chiu Supply Chain Specialist [facility] 05/24/2024,1:37 PM documented in this encounter Plan of Treatment Upcoming Encounters Date Type Department Care Team (Late st Contact Info) Description 06/02/2024 10:30 AM EDT Office Visit [facility] [address] [place] [id number] January Wild PA-C [address] [place] [id number] 06/21/2024 8:30 AM EDT [facility] [address] [phone] Luis Alberto Villanueva Nara [address] [id number] 06/22/2024 9:30 AM EDT Pharmacy Pharmacy, [address] [address] Clinic, Anemia [facility] [place] [address] [phone] (work) Scheduled Orders Name Type Priority Associated Diagnoses Orde r Schedule CBC WITH WBC DIFFERENTIAL Lab Routine Antepartum anemia complicating Expected: 06/21/2024, Expires: 04/23/2025 IRON SCREEN, INCLUDING TIBC Lab Routine Antepartum anemia complicating Expected: 06/21/2024, Expires: 04/23/2025 FERRITIN Lab Routine Antepartum anemia complicating Expected: 06/21/2024, Expires: 04/23/2025 RETICULOCYTE PANEL Lab Routine Antepartum anemia complicating Expected: 06/21/2024, Expires: 04/23/2025 VITAMIN B12 Lab Routine Antepartum anemia complicating Expected: 06/21/2024, Expires: 04/23/2025 FOLIC ACID Lab Routine Antepartum anemia complicating Expected: 06/21/2024, Expires: 04/23/2025 Health Maintenance Due Date Last Done Comments GARDASIL-HPV IMMUNIZATION SERIES (3 - 3-dose series) 12/01/2009 08/01/2009, 05/31/2009 COVID-19 Vaccine (2022- season) 2023 DTaP,Tdap,and Td Vaccines (8 - Td or Tdap) 08/20/2023 08/20/2013, 12/24/2005, 06/19/1995, Additional history exists Influenza Vaccine (FLU shot) (Season Ended) 2024 Depression Screening 04/14/2025 04/14/2024 Pap Smear 12/12/2026 12/12/2023, /, 12/23/2016, Additional history exists Cervical Cancer Screening 12/12/2028 HPV/Co-Test 12/12/2028 12/12/2023 Hepatitis B Completed 04/14/2002, 01/2001, 05/19/2001 MENINGOCOCCAL (MENACTRA/MENVEO) Aged Out No longer eligible based on patient's age to complete this topic Pneumococcal Vaccine: Pediatrics (0 to 5 Years) and At-Risk Patients (6 to 64 Years) Aged Out No longer eligible based on patient's age to complete this topic documented as of this encounter Medical Devices Not on filedocumented as of this encounter Visit Diagnoses Diagnosis Antepartum anemia complicating - Primary Anemia, antepartum documented in this encounter Care Teams Manager Wealth Management Relationship Specialty Start Date End Date José Bearden MD [address] [facility] [place] [address] PCP - General 03/27/04 documented as of this encounter
--- OUTSIDE RECORDS SUMMARY | 2024-06-12 11:39 | External Medical Summary | Summary of Care ---
Author Name Unknown Organization [facility] Address [address] [place] [address] Phone [phone] Care Team Providers Care Senior Treasury Consultant Name Role Phone José Bearden MD Primary Care Provider +1- [phone] Reason for Visit * Reason Comments Return Visit Encounter Details Date Type Department Care Team (Late st Contact Info) Description 06/02/2024 10:30 AM EDT Office Visit Gynecology/Obstetric s Maddy Villanueva [address] [place] [address] January Wild PA-C [address] [place] [address] Normal in third trimester*; Antepartum anemia complicating ; Short interval between pregnancies complicating , antepartum; Family history of congenital heart defect; Polyp of cervix; History of Ohbio-Vuifvmneh-Xuhbt (WPW) syndrome; Echogenic intracardiac focus of fetus on ultrasound Allergies Active Allergy Reactions Criticality Noted Date Comments Lactose Intolerance 12/06/2005 documented as of this encounter (statuses as of 06/02/2024) Medications Medication Sig Dispensed Refills Start Date End Date Status Fluticasone Propionate 50 MCG/ACT Nasal Suspension Administer 1 [place] into nostril in the morning. Active Ketotifen Fumarate 0.025 % Ophthalmic Solution 1 Drop in the morning and 1 Drop before bedtime. Active Vitamin 27-0.8 MG Oral Tablet Take by mouth . Active B-12 50 MCG Oral Tablet Take by mouth. Active Vitamin B-12 1000 MCG Oral Tablet (Cyanocobalamin) Take 1 Tablet by mouth in the morning. 30 Tablet 5 04/16/2024 Active Cephalexin 500 MG Oral Capsule (Keflex) Take 1 Capsule by mouth in the morning and 1 Capsule before bedtime. Do all this for 7 days. Until gone.. 14 Capsule 06/02/2024 06/09/2024 Active documented as of this encounter (statuses as of 06/02/2024) Active Problems Problem Noted Date Diagnosed Date [...] and it was ordered today. 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 Asymptomatic. Saw cardiology 12/04/22 who states ""The Jlzxh-Zrogkgbvo-Oyynz he has been cured. She has no [...] as of this encounter (statuses as of 06/02/2024) Resolved Problems Problem Noted Date Diagnosed Date Resolved Date GBS (group B Streptococcus c arrier), +RV culture, currently 03/20/2023 04/03/2023 Maternal asthma [...] repair at 4 months of age at [facility] [Doing well now, aged 9 years] -Declines [...] RN Patient declined flu vaccine. 09/03/2013 Helena Soria RN Allergic rhinitis 04/18/2008 11/04/2022 Other chronic allergic conjunctivitis 04/18/2008 11/04/2022 Ycbtu-Rbpudmclz-Nupcx syndrome 12/24/2005 12/16/2023 Overview: - Luque Parkinson [...] -Declined genetic counseling -Per cardiology 12/04/22: "The Iygaw-Rjthasmuz-Oriju he has been cured. She has no [...] as of this encounter (statuses as of 06/02/2024) Immunizations Name Administration Dates Next Due DTWP [...] money to buy more. Never true 04/14/20 24 Within the past 12 months, t he food you bought just didn't last and you didn't have money to get more. Never true 04/14/2024 [place] Depression Scale Answer Date Recorded [place] Depression Scale Total 0 12/12/2023 The thought [...] on file Are you (or your family) kmuar eless or worried that you might be [...] on file documented as of this encounter Last Filed Vital Signs Vital Sign Reading Time Taken Comments Blood Pressure 100/62 06/02/2024 10:21 AM EDT Pulse - - Temperature - - Respiratory Rate - - Oxygen Saturation - - Inhaled Oxygen Concentration - - Weight 73.9 kg (163 lb) 06/02/2024 10:21 AM EDT Height - - Body Mass Index 27.12 05/19/2024 8:44 AM EDT documented in this encounter Progress Notes * January Wild PA-C - 06/02/2024 10:38 AM EDT 34w5d First time seeing patient. Pt notes dysuria over last few days. Has had UTI in past, feels similar.UA collected + lueks, blood and urobillirubin. Reviewed with patient. Urine culture collected, discussed CMP -- pt agreeable. We also discussed treatment now given symptoms while awaiting tx -- she was agreeable. Denies VB, LOF. Baby is active. GBS next visit RTC in 2 weeks January Wild PA-C * Leanna Wills MED ASSIST - 06/02/2024 10:21 AM EDT 34w5d Denies vaginal bleeding/rom + movements Requesting urine dip for possible UTI documented in this encounter Plan of Treatment Upcoming Encounters Date Type Department Care Team (Late st Contact Info) Description 06/02/2024 11:10 AM EDT Laboratory Laboratory, [facility] [address] [facility] [place] [phone] Luis Alberto Villanueva [address] [facility] [place] [address] Arrived 06/16/2024 10:30 AM EDT Office Visit Gynecology/Obstetrics [facility] [address] [place] [address] Ruthy Trevino CRNP [address] [place] [address] 06/21/2024 8:30 AM EDT Laboratory Laboratory, [facility] [address] [place] [phone] [facility] Luis Alberto [facility] [address] [facility] [place] [address] 06/22/2024 9:30 AM EDT Pharmacy Pharmacy, [address] [phone] [facility], [address] [address] Pending Results Name Type Priority Associated Diagnoses Date /Time COMPREHENSIVE METABOLIC PANEL Lab Routine Normal in third trimester 06/02/2024 10:45 AM EDT CULTURE, URINE, QUANTITATIVE Lab Routine Normal in third trimester 06/02/2024 10:31 AM EDT Health Maintenance Due Date Last Done Comments HPV (Gardasil) Vaccine (3 - 3-dose series) 12/01/2009 08/01/2009, 05/31/2009 COVID-19 Vaccine (2022- season) 2023 DTaP,Tdap,and Td Vaccines (8 - Td or Tdap) 08/20/2023 08/20/2013, 12/24/2005, 06/19/1995, Additional history exists Influenza Vaccine (FLU shot) (#1) 2024 Depression Screening 04/14/2025 04/14/2024 Pap Smear 12/12/2026 12/12/2023, 02/2 , 12/23/2016, Additional history exists Cervical Cancer Screening 12/12/2028 HPV/Co-Test 12/12/2028 12/12/2023 Hepatitis B Vaccine Completed 04/14/2002, 07/02/2001, 05/19/2001 MENINGOCOCCAL (MENACTRA/MENVEO) Aged Out No longer eligible based on patient's age to complete this topic Pneumococcal Vaccine: Pediatrics (0 to 5 Years) and At-Risk Patients (6 to 64 Years) Aged Out No longer eligible based on patient's age to complete this topic documented as of this encounter Medical Devices Not on filedocumented as of this encounter Procedures Procedure Name Priority Date/Time Associated Diagnosis Comments URINALYSIS, POINT OF CARE (ENTER/EDIT) Routine 06/02/2024 Normal in third trimester documented in this encounter Results * URINALYSIS, POINT OF CARE (ENTER/EDIT) (06/02/2024) Color, Urine Yellow Yellow or Light Yellow Clarity, Urine Clear Clear Glucose, Urine Negative Negative mg/dL Bilirubin, Urine Negative Negative Ketone, Urine Negative Negative mg/dL Specific [place], Urine 1.025 1.003 - 1.030 Blood, Urine Trace-intact Negative pH, Urine 7.0 5.0 - 7.5 units Protein, Urine Negative Negative mg/dL Urobilinogen, Urine 2.0 0.2 - 1.0 mg/dL Nitrite, Urine Negative Negative Esterase, Urine Small Negative Urine 06/02/2024 January Wild PA-C LAB POINT OF CARE [facility] ENTER/EDIT ORDERABLES documented in this encounter Visit Diagnoses Diagnosis Normal in third trimester- Primary Antepartum anemia complicating Anemia, antepartum Short interval between pregnancies complicating , antepartum Supervision of other high-risk Family history of congenital heart defect Family history of congenital anomalies Polyp of cervix Mucous polyp of cervix History of Vaddx-Qqpawuitc-Zqlmf (WPW) syndrome Echogenic intracardiac focus of fetus on ultrasound Abnormal findings on screening documented in this encounter Care Teams Senior Treasury Consultant Relationship Specialty Start Date End Date José Bearden MD [address] [place] [address] PCP - General 03/27/04 documented as of this encounter
--- OUTSIDE RECORDS SUMMARY | 2024-06-12 11:39 | External Medical Summary ---
Author Name Unknown Address Unknown Organization [id number]:[facility] [place] [facility] - [address] [place] [address] Laboratory Report Ordering Provider Test Date Status ASPENMARCELLE 06/02/2024 10:45:39 Final Observation Date Value Abnormality Reference (Units ) Status BUN 06/02/2024 10:45:39 12 6-20 (mg/dL) Final Creatinine 06/02/2024 10:45:39 0.6 0.5-1.0 (mg/dL) Final Glomerular filtration rate/1.73 sq M.predicted [Volume Rate/Area] in Serum, Plasma or Blood by Creatinine-based formula (CKD-EPI) 06/02/2024 10:45:39 >90 >=60 (mL/min) Final eGFR is calculated based on the CKD-EPI 2020 equation Sodium 06/02/2024 10:45:39 134 Below low normal 135 -146 (mmol/L) Final Potassium 06/02/2024 10:45:39 4.0 3.5-5.1 (m mol/L) Final Cl 06/02/2024 10:45:39 103 98-107 (mm ol/L) Final CO2 06/02/2024 10:45:39 22 22-32 (mmo l/L) Final Anion gap 06/02/2024 10:45:39 9 7-15 (mmol /L) Final Glucose 06/02/2024 10:45:39 89 70-120 (mg /dL) Final Albumin 06/02/2024 10:45:39 3.7 Below low normal 3.8 -5.0 (g/dL) Final AST (Aspartate aminotransferase) 06/02/2024 10:45:39 11 10-35 (U/L) Fin al Alk Phos 06/02/2024 10:45:39 106 35-130 (U/ L) Final Bilirubin, Total 06/02/2024 10:45:39 0.3 <=1 .2 (mg/dL) Final Calcium 06/02/2024 10:45:39 8.8 8.4-10.2 ( mg/dL) Final Protein 06/02/2024 10:45:39 6.0 6.0-8.3 (g /dL) Final ALT (Alanine aminotransferase) 06/02/2024 10:45:39 7 Below low normal 10-35 (U/L) Final Performing Location [facility] [address] [facility] [address]
--- OUTSIDE RECORDS SUMMARY | 2024-06-12 11:39 | External Medical Summary | Summary of Care ---
Author Name Unknown Organization [facility] Address [address] [place] [address] Phone [phone] Care Team Providers Care Hair Rooting Machine Operator Name Role Phone José Bearden MD Primary Care Provider +1- [phone] Reason for Visit * Reason Comments IV Therapy Venofer 01/31 Encounter Details Date Type Department Care Team (Latest Contact Info) Description 05/21/2024 8:30 AM EDT Hem/Onc Treatment Hematology/Oncology Treatment, [address] [address] Cyndy, Chair 11 Hem Onc [address] [address] Iron deficiency anemia, unspecified iron deficiency anemia type* Allergies Active Allergy Reactions Criticality Noted Date Comments Lactose Intolerance 12/06/2005 documented as of this encounter (statuses as of 06/06/2024) Medications Medication Sig Dispensed Refills Start Date End Date Status Fluticasone Propionate 50 MCG/ACT Nasal Suspension Administer 1 [place] into nostril in the morning. Active Ketotifen [...] as of this encounter (statuses as of 06/06/2024) Active Problems Problem Noted Date Diagnosed Date [...] and it was ordered today. 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 Asymptomatic. Saw cardiology 12/04/22 who states ""The Idpsi-Xfxvwbbtr-Lbryn he has been cured. She has no [...] as of this encounter (statuses as of 06/06/2024) Resolved Problems Problem Noted Date Diagnosed Date [...] repair at 4 months of age at [facility] [Doing well now, aged 9 years] [...] 11/04/2022 Other chronic allergic conjunctivitis 04/18/2008 11/04/2022 Xxtvj-Qnuqppbkt-Bmzeq syndrome 12/24/2005 12/16/2023 Overview: - Luque Parkinson [...] -Declined genetic counseling -Per cardiology 12/04/22: "The Lsoyt-Oaksfsenn-Jxuib he has been cured. She has no [...] as of this encounter (statuses as of 06/06/2024) Immunizations Name Administration Dates Next Due DTWP [...] money to get more. Never true 04/14/2024 [place] Depression Scale Answer Date Recorded [place] Depression Scale Total 0 12/12/2023 The thought [...] Sign Reading Time Taken Comments Blood Pressure 99/64 05/21/2024 8:34 AM EDT Pulse 97 05/21/2024 8:34 AM EDT Temperature 36.4 C (97.6 F) 05/21/2024 8:34 AM ED T Respiratory Rate 16 05/21/2024 8:34 AM EDT Oxygen Saturation 97% 05/21/2024 8:34 AM EDT Inhaled Oxygen Concentration - - Weight - - Height - - Body Mass Index - - documented in this encounter Nursing Notes * Sera Gresham RN - 05/21/2024 2:09 PM EDT Safety and Risk for Injury Patient will remain free from injury. Ensure appropriate safety devices are available. Provide and maintain safe environment. Pt completed treatment without issues. IV removed. Goals: Pt will remain free from injury. Possible barriers to meeting goals: ambulation with IV pole Stability of the patient: Moderately stable - low risk of patient condition declining or worsening Summary regarding today's goals: Met: Pt Pt remained free from injury during treatment today. Discharged in stable condition. * Sera Gresham RN - 05/21/2024 8:59 AM EDT Chair 10, Tho. Pt has no acute concerns to report since previous treatment. PIV established in RFA; Venofer infusing. documented in this encounter Plan of Treatment Upcoming Encounters Date Type Department Care Team (Late st Contact Info) Description 06/16/2024 10:30 AM EDT Office Visit Gynecology/Obstetrics Maddy Perezs [address] [place] [address] Ruthy Trevino CRNP [address] [place] [address] 06/21/2024 8:30 AM EDT [facility] [address] [place] [phone] VillanuevaLuis Alberto rashid [address] [place] [address] 06/22/2024 9:30 AM EDT Pharmacy Pharmacy, [place] [address] [place] [address] Clinic, [facility] [address] [place] [address] Health Maintenance Due Date Last Done Comments HPV (Gardasil) Vaccine (3 - 3-dose series) 12/01/2009 08/01/2009, 05/31/2009 COVID-19 Vaccine (2022- season) 2023 DTaP,Tdap,and Td Vaccines (8 - Td or Tdap) 08/20/2023 08/20/2013, 12/24/2005, 06/19/1995, Additional history exists Influenza Vaccine (FLU shot) (#1) 2024 Depression Screening 04/14/2025 04/14/2024 Pap Smear 12/12/2026 12/12/2023, 01/02, 12/23/2016, Additional history exists Cervical Cancer Screening [...] as of this encounter Visit Diagnoses Diagnosis Iron deficiency anemia, unspecified iron deficiency anemia type- Primary documented in this encounter Administered Medications Inactive Administered Medications - up to 3 most recent administrations Medication Order MAR Action Action Date Dose Rate Site Iron Sucrose (Venofer) 300 mg in NSS 250 mL ivpb 300 mg, IV Piggyback, ONCE, 1 dose, On Fri05/21/24 at 1030, Administer over 90 Minutes Start Infusion 05/21/2024 8:57 AM EDT 300 mg 180 mL/hr NSS infusion 500 mL, Intravenous, at 50 mL/hr, CONTINUOUS, Starting on Fri05/21/24 at 1000, Until 05/21/24 at 1810 Start Infusion 05/21/2024 8:55 AM EDT 500 mL 50 mL/hr documented in this encounter Care Teams Hair Rooting Machine Operator Relationship Specialty Start Date End Date José Bearden MD [address] [facility] [place] [address] PCP - General 03/27/04 documented as of this encounter
--- OUTSIDE RECORDS SUMMARY | 2024-06-12 11:39 | External Medical Summary | Summary of Care ---
Author Name Unknown Organization [facility] Address [address] [place] [address] Phone [phone] Care Team Providers Care Digital Marketing Specialist Name Role Phone José Bearden MD Primary Care Provider +1- [phone] Reason for Visit * Reason Onset Date Comments Test Results 06/04/2024 Encounter Details Date Type Department Care Team (Late st Contact Info) Description 06/04/2024 Telephone Gynecology/Obstetrics [place]or[place]to Villanueva [address] [place] [address] January Wild PA-C [address] [place] [address] Test Results Allergies Active Allergy Reactions Criticality Noted Date Comments Lactose Intolerance 12/06/2005 documented as of this encounter (statuses as of 06/04/2024) Medications Medication Sig Dispensed Refills Start Date End Date Status Fluticasone Propionate 50 MCG/ACT Nasal Suspension Administer 1 [place] into nostril in the morning. Active Ketotifen [...] as of this encounter (statuses as of 06/04/2024) Active Problems Problem Noted Date Diagnosed Date [...] and it was ordered today. 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 Asymptomatic. Saw cardiology 12/04/22 who states ""The Wcscn-Gosfzihcg-Stftf he has been cured. She has no [...] as of this encounter (statuses as of 06/04/2024) Resolved Problems Problem Noted Date Diagnosed Date Resolved Date GBS (group B Streptococcus c arrbobby), +RV culture, currently 03/20/2023 04/03/2023 Maternal asthma [...] repair at 4 months of age at [facility] [Doing well now, aged 9 years] [...] any evidence of cardiac abnormality. Anemia during 08/09/2013 12/0 03/2022 , normal first 03/01/201310/02 Overview: Pt received tdap 08/20/13 Helena Soria RN Patient declined flu vaccine. 09/03/2013 Helena Soria RN Allergic rhinitis 04/18/2008 11/04/2022 Other chronic allergic conjunctivitis 04/18/2008 11/04/2022 Hszgt-Xidapgyht-Yumoq syndrome 12/24/2005 12/16/2023 Overview: - Luque Parkinson [...] -Declined genetic counseling -Per cardiology 12/04/22: "The Ipmlw-Rgmrhdhxh-Gmcwm he has been cured. She has no [...] as of this encounter (statuses as of 06/04/2024) Immunizations Name Administration Dates Next Due DTWP [...] money to get more. Never true 04/14/2024 [place] Depression Scale Answer Date Recorded [place] Depression Scale Total 0 12/12/2023 The thought [...] on file documented as of this encounter Miscellaneous Notes * Telephone Encounter - Jeny Perez RN - 06/04/2024 4:32 PM EDT Attempted to call patient. No answer LVM to return call * Telephone Encounter - January Wild PA-C - 06/04/2024 4:27 PM EDT Pt urine culture returned positive. I had started her on ABX with appointment 06/02/2024. Can you please call to let her know results and ask if she feels symptoms improving? If not improving we may need to change antibiotic. January Wild PA-C documented in this encounter Plan of Treatment Upcoming Encounters Date Type Department Care Team (Late st Contact Info) Description 06/16/2024 10:30 AM EDT Office Visit Gynecology/Obstetrics [facility] [address] [facility] [place] [address] Ruthy Trevino CRNP [address] [place] [address] 06/21/2024 8:30 AM EDT [facility] [address] [facility] [place] [phone] VillanuevaLuis Alberto rashid [facility] [address] [facility] [place] [address] 06/22/2024 9:30 AM EDT Pharmacy Pharmacy, [place] [address] [place], [place] [id number] Clinic, [facility] [address] [place], [place] [phone] Health Maintenance Due Date Last Done Comments [...] Not on filedocumented as of this encounter Care Teams Digital Marketing Specialist Relationship Specialty Start Date End Date José Bearden MD [address] [place] [address] PCP - General 03/27/04 documented as of this encounter
--- OUTSIDE RECORDS SUMMARY | 2024-06-12 11:39 | External Medical Summary | Summary of Care ---
Author Name Unknown Organization [facility] Address [address] [place] [address] Phone [phone] Care Team Providers Care Director Of Event Management Name Role Phone José Bearden MD Primary Care Provider +1- [phone] Reason for Visit * Reason Onset Date Comments Test Results 06/04/2024 Encounter Details Date Type Department Care Team (Late st Contact Info) Description 06/04/2024 Telephone Gynecology/Obstetrics Solorioroberto Villanueva [address] [place] [address] January Wild PA-C [address] [place] [address] Test Results Allergies Active Allergy Reactions Criticality Noted Date Comments Lactose Intolerance 12/06/2005 documented as of this encounter (statuses as of 06/07/2024) Medications Medication Sig Dispensed Refills Start Date End Date Status Fluticasone Propionate 50 MCG/ACT Nasal Suspension Administer 1 [place] into nostril in the morning. Active Ketotifen [...] as of this encounter (statuses as of 06/07/2024) Active Problems Problem Noted Date Diagnosed Date [...] and it was ordered today. 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 Asymptomatic. Saw cardiology 12/04/22 who states ""The Ttskd-Pfxdvdiga-Qgqnx he has been cured. She has no [...] as of this encounter (statuses as of 06/07/2024) Resolved Problems Problem Noted Date Diagnosed Date [...] repair at 4 months of age at [facility] [Doing well now, aged 9 years] [...] 11/04/2022 Other chronic allergic conjunctivitis 04/18/2008 11/04/2022 Bukmt-Nubivcmah-Sakbw syndrome 12/24/2005 12/16/2023 Overview: - Luque Parkinson [...] -Declined genetic counseling -Per cardiology 12/04/22: "The Beipg-Hjnvynhec-Advno he has been cured. She has no [...] as of this encounter (statuses as of 06/07/2024) Immunizations Name Administration Dates Next Due DTWP HIB - Dipth/Tet/Whole C ell Pert/HIB 06/19/1995,10/08/1991,1990, 990,1990 HIB PRP-OMP, 3 dose (Pedvax) 1990 HPV Vaccine, 4-Valent 08/01/2009,05/31/2009 Hepatitis B, 0-19 yrs 04/14/2002,07/02/2001,05/01 MMR - Measles/Mumps/Rubella Vaccine 06/19/1995,0 06/25/1991 OPV - Polio Virus Vaccine (Oral) 995,10/08/1991,1990, 990 TDAP (age 10 and older)(Boostrix) 08/20/2013, documented as of this encounter Social History [...] money to get more. Never true 04/14/2024 [place] Depression Scale Answer Date Recorded [place] Depression Scale Total 0 12/12/2023 The thought [...] encounter Miscellaneous Notes * Telephone Encounter - Geeta Naylor RN - 06/07/2024 2:56 PM EDT Pt is aware and doing better. She was advised to call with any concerns. * Telephone Encounter - Jeny Perez RN [...] 10:30 AM EDT Office Visit Gynecology/Obstetrics Maddy [facility] [address] [place] [address] Ruthy Trevino CRNP [address] [place] [address] 06/21/2024 8:30 AM EDT [facility] [address] [place] [phone] VillanuevaLuis Alberto rashid [address] [place] [address] 06/22/2024 9:30 AM EDT Pharmacy Pharmacy, [place] [address] [place] [address] [facility] [address] [place] [address] Health Maintenance Due Date Last Done Comments [...] filedocumented as of this encounter Care Teams Director Of Event Management Relationship Specialty Start Date End Date José Bearden MD [address] [place] [address] PCP - General 03/27/04 documented as of this encounter
--- OUTSIDE RECORDS SUMMARY | 2024-06-12 11:39 | External Medical Summary ---
Author Name Unknown Address Unknown Organization K01[place] [place] [address] [place] [address] Laboratory Report Ordering Provider Test Date Status MARCELLE LOUISE 06/02/2024 10:31:35 Final Observation Date Value Abnormality Reference (Units ) Status Bacteria identified in Specimen by Culture 06/02/2024 10:31:35 [id number] COCCUS, COAGULASE NEGATIVE Abnormal Final 10,000 to 100,000 colonies/m L Staphylococcus, coagulase negative Performing Location [facility] [place] [address] [place] [address] Ordering Provider Test Date Status MARCELLE LOUISE 06/02/2024 10:31:35 Final Observation Date Value Abnormality Reference (Units ) Status Nitrofurantoin susceptibility 06/02/2024 10:31:35 <=16 Susceptible Final Oxacillinsusceptibility 06/02/2024 10:31:35 <=0.25 Susceptible Final Tetracyclinesusceptibility 06/02/2024 10:31:35 <=1 Susceptible Final TMP-SMZ susceptibility 06/02/2024 10:31:35 <=10 Susceptible Final Vancomycinsusceptibility 06/02/2024 10:31:35 1 Susceptible Final Test: Culture, Urine, Quanti tative
Specimen Source: Urine, Clean Catch
Specimen Type: Urine
Specimen Date: 06/02/2024 1031
Result Date: 06/04/2024 1452
Result Status: Final result
Abnormal: Yes
Resulting Lab: [facility] [place]
[address]
[place] [address]

CULTURE

10,000 to 100,000 colonies/mL Staphylococcus, coagulase negative (Abnormal)

SUSCEPTIBILITY

Staphylococcus,
coagulase negative
METHOD MICROBROTH
DILUTIONS

NITROFURANTOIN <=16 Susceptible
OXACILLIN <=0.25 Susceptible
TETRACYCLINE <=1 Susceptible
TRIMETH/SULFAMETHOXAZOLE <=10 Susceptible
VANCOMYCIN 1 Susceptible

null Performing Location [facility] [place] [address] [place] [address]
--- OUTSIDE RECORDS SUMMARY | 2024-06-12 11:39 | External Medical Summary | Summary of Care ---
Author Name Unknown Organization [facility] Address [address] [place] [address] Phone [phone] Care Team Providers Care Aging Room Hand Name Role Phone José Bearden MD Primary Care Provider +1- [phone] Reason for Visit * Reason Comments Return Visit Encounter Details Date Type Department Care Team (Late st Contact Info) Description 05/19/2024 8:45 AM EDT Office Visit Gynecology/Obstetric s [facility] [address] [place] [address] Mode Mendiola MD [address] [place] [address] Antepartum anemia complicating *; Normal in third trimester; Short interval between pregnancies complicating , antepartum; Family history of congenital heart defect; Polyp of cervix; History of Rklnm-Kmpazwdlp-Icysx (WPW) syndrome; Echogenic intracardiac focus of fetus on ultrasound Allergies Active Allergy Reactions Criticality Noted Date Comments Lactose Intolerance 12/06/2005 documented as of this encounter (statuses as of 05/19/2024) Medications Medication Sig Dispensed Refills Start Date End Date Status Fluticasone Propionate 50 MCG/ACT Nasal Suspension Administer 1 [place] into nostril in the morning. Active [...] as of this encounter (statuses as of 05/19/2024) Active Problems Problem Noted Date Diagnosed Date [...] and it was ordered today. History of Cneqq-Nzdwhxqwx-Bjpki (WPW) syndrome 12/16/2023 Overview: S/p cardiac ablation 2005. Asymptomatic. Saw cardiology 12/04/22 who states ""The Hoxlk-Uonddzvag-Gsoeg he has been cured. 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 She has no [...] as of this encounter (statuses as of 05/19/2024) Immunizations Name Administration Dates Next Due DTWP [...] money to get more. Never true 04/14/2024 [place]a Depression Scale Answer Date Recorded [place]a Depression Scale Total 0 12/12/2023 The thought [...] Sign Reading Time Taken Comments Blood Pressure 104/62 05/19/2024 8:44 AM EDT Pulse - - Temperature - - Respiratory Rate - - Oxygen Saturation - - Inhaled Oxygen Concentration - - Weight 73 kg (161 lb) 05/19/2024 8:44 AM EDT Height 165.1 cm (5' 5") 05/19/2024 8:44 AM EDT Body Mass Index 26.79 05/19/2024 8:44 AM EDT documented in this encounter Progress Notes * Mode Medniola MD - 05/19/2024 8:59 AM EDT Pt doing well No complaints RTC 2 week * Buffy Falcon LPN - 05/19/2024 8:44 AM EDT [id number] Denies any concerns documented in this encounter Plan of Treatment Upcoming Encounters Date Type Department Care Team (Late st Contact Info) Description 05/21/2024 8:30 AM EDT Hem/Onc Treatment Hematology/Oncology Treatment, [place] [address] [facility] [place] [phone] Cyndy, Chair 11 Hem [facility] [address] [facility] [address] 05/24/2024 2:00 PM EDT [facility], [place] [address] [facility] [address] Clinic, Anemia [address] [facility] [place] [address] 06/02/2024 10:30 AM EDT Office Visit Gynecology/Obstetrics Maddy Villanueva [address] [place] [address] January Wild PA-C [address] [place] [address] Health Maintenance Due Date Last Done Comments [...] Antepartum anemia complicating - Primary Anemia, antepartum Normal in third trimester Short interval between pregnancies complicating , antepartum Supervision of other high-risk Family history of congenital heart defect Family history of congenital anomalies Polyp of cervix Mucous polyp of cervix History of Ojveg-Ajdgbxttr-Loxfi (WPW) syndrome Echogenic intracardiac focus of fetus on ultrasound Abnormal findings on screening documented in this encounter Care Teams Aging Room Hand Relationship Specialty Start Date End Date José Bearden MD [address] [facility] [place] [address] PCP - General 03/27/04 documented as of this encounter
--- OUTSIDE RECORDS SUMMARY | 2024-06-12 11:39 | External Medical Summary | Summary of Care ---
Author Name Unknown Organization [facility] Address [address] [facility] [address] Phone [phone] Care Team Providers Care Beam Doffer Name Role Phone José Bearden MD Primary Care Provider +1- [phone] Encounter Details Date Type Department Care Team (Late st Contact Info) Description 06/02/2024 Orders Only [facility] [address] [place] [address] January Wild PA-C [address] [place] [address] Normal in third trimester* Allergies Active Allergy Reactions Criticality Noted Date Comments Lactose Intolerance 12/06/2005 documented as of this encounter (statuses as of 06/02/2024) Medications Medication Sig Dispensed Refills Start Date End Date Status Fluticasone Propionate 50 MCG/ACT Nasal Suspension Administer 1 [place] into nostril in the morning. Active Ketotifen [...] and it was ordered today. History of Durhe-Mfpgnpvyk-Nyiua (WPW) syndrome 12/16/2023 Overview: S/p cardiac ablation 2005. Asymptomatic. Saw cardiology 12/04/22 who states ""The Yjvya-Xrojafmmq-Sxfef he has been cured. She has no [...] repair at 4 months of age at [facility] [Doing well now, aged 9 years] -Declines [...] first 03/01/201310/02 Overview: Pt received tdap 08/20/13 Hleena Soria RN Patient declined flu vaccine. 09/03/2013 Helena Soria RN Allergic rhinitis 04/18/2008 11/04/2022 Other chronic allergic conjunctivitis 04/18/2008 11/04/2022 Bvdun-Xmeuwgqsq-Bqqcp syndrome 12/24/2005 12/16/2023 Overview: - Luque Parkinson [...] -Declined genetic counseling -Per cardiology 12/04/22: "The Kqjmy-Sveetbwgo-Azqye he has been cured. She has no [...] money to get more. Never true 04/14/2024 [place] Depression Scale Answer Date Recorded [place] Depression Scale Total 0 12/12/2023 The thought [...] 04/14/2024 Does the household have a re lar source of income? (Household - for ages [...] on file documented as of this encounter Plan of Treatment Upcoming Encounters Date Type Department Care Team (Late st Contact Info) Description 06/16/2024 10:30 AM EDT Office Visit Gynecology/Obstetrics Maddy Villanueva [address] [place] [address] Ruthy Trevino CRNP [address] [place] [address] 06/21/2024 8:30 AM EDT [facility] [address] [place] [phone] [facility] [address] [place] [address] 06/22/2024 9:30 AM EDT Pharmacy Pharmacy, [address] [id number] [facility], [address] [phone] Scheduled Orders Name Type Priority Associated Diagnoses Orde r Schedule BASIC METABOLIC PANEL Lab Routine Normal in third trimester Expected: 06/09/2024, Expires: 06/02/2025 Health Maintenance Due Date Last Done Comments [...] as of this encounter Visit Diagnoses Diagnosis Normal in third trimester- Primary documented in this encounter Care Teams Beam Doffer Relationship Specialty Start Date End Date José Bearden MD [address] [place] [address] PCP - General 03/27/04 documented as of this encounter
--- OUTSIDE RECORDS SUMMARY | 2024-06-12 11:39 | External Medical Summary | Summary of Care ---
Author Name Unknown Organization [facility] Address [address] [place] [address] Phone [phone] Care Team Providers Care Asphalt Raker Name Role Phone José Bearden MD Primary Care Provider +1- [phone] Reason for Referral * Evaluate & Treat - Unlimited Visits (Within 3 days (urgent)) - Pending Review Specialty Diagnoses / Procedures Referred By Will joyner Referred To Contact Pharmacist / Pharmacy Diagnoses Anemia in Ruthy Trevino CRNP [address] [place] [address] Referral ID Status Reason Start Date Expiration Date Visits Requested Visits Authorized [id number] Pending Review Specialty Services Required 04/16/2024 99 99 Question Answer Referral Priority Within 3 days (urgent) Where should this appointment be scheduled? [facility] Referring Provider Role: Specialist Specialty: regional construction manager Reason for Referral: Anemia Comments Pharmacist Medication Therapy Management: Iron deficiency anemia Kodi Suarez RN Reason for Visit * Reason Onset Date Comments Blood Management Program 04/16/2024 Encounter Details Date Type Department Care Team ([facility] st Contact Info) Description 04/16/2024 Telephone Patient Blood Management, [address] [address] Ruthy Trevino CRNP [address] [place] [address] Blood Management Program Allergies Active Allergy Reactions Criticality Noted Date Comments Lactose Intolerance 12/06/2005 documented as of this encounter (statuses as of 06/01/2024) Medications Medication Sig Dispensed Refills Start Date End Date Status Fluticasone Propionate 50 MCG/ACT Nasal Suspension Administer 1 [place] into nostril in the morning. Active Ketotifen [...] as of this encounter (statuses as of 06/01/2024) Active Problems Problem Noted Date Diagnosed Date [...] and it was ordered today. History of Nvytv-Urqkrmfjg-Ifqil (WPW) syndrome 12/16/2023 Overview: S/p cardiac ablation 2005. Asymptomatic. Saw cardiology 12/04/22 who states ""The Pfwjn-Qjexdxsxm-Brkdf he has been cured. She has no [...] as of this encounter (statuses as of 06/01/2024) Resolved Problems Problem Noted Date Diagnosed Date [...] repair at 4 months of age at [facility] [Doing well now, aged 9 [...] any evidence of cardiac abnormality. Anemia during 08/09/[address] 03/2022 , normal first 03/01/201310/02 Overview: Pt received tdap 08/20/13 Helena Soria RN Patient declined flu vaccine. 09/03/2013 Helena Soria RN Allergic rhinitis 04/18/2008 11/04/2022 Other chronic allergic conjunctivitis 04/18/2008 11/04/2022 Kjfbf-Nkxvzhisw-Ibiso syndrome 12/24/2005 12/16/2023 Overview: - Luque Parkinson [...] -Declined genetic counseling -Per cardiology 12/04/22: "The Mvgeg-Ffqbnfunz-Yrgjm he has been cured. She has no [...] as of this encounter (statuses as of 06/01/2024) Immunizations Name Administration Dates Next Due DTWP [...] money to get more. Never true 04/14/2024 [place] Depression Scale Answer Date Recorded [place] Depression Scale Total 0 12/12/2023 The thought [...] encounter Miscellaneous Notes * Telephone Encounter - Kodi Suarez RN - 04/16/2024 2:12 PM EDT Recommend Venofer IV per OB MTM Protocol Pt. Agreeable to IV iron at [facility] documented in this encounter Plan of Treatment Upcoming Encounters Date Type Department Care Team (Late st Contact Info) Description 06/02/2024 10:30 AM EDT Office Visit [facility]necology[facility]stetrics [facility] [address] [place] [address] January Wild PA-C [address] [place] [address] 06/21/2024 8:30 AM EDT [facility] [address] [place] [phone] VillanuevaLuis Alberto rashid [address] [place] [address] 06/22/2024 9:30 AM EDT Pharmacy Pharmacy, [place] [address] [place] [address] [facility] [address] [place] [address] Scheduled Referrals Name Type Priority Associated Diagnoses Orde r Schedule PHARMACIST MEDS THERAPY MGMT REFERRAL OP Referral Within 3 days (urgent) Anemia in Ordered: 04/16/2024 Health Maintenance Due Date Last Done Comments [...] as of this encounter Visit Diagnoses Diagnosis Anemia in - Primary Anemia of mother, complicating , childbirth, or the puerperium, unspecified as to episode of care documented in this encounter Care Teams Asphalt Raker Relationship Specialty Start Date End Date José Bearden MD [address] [place] [address] PCP - General 03/27/04 documented as of this encounter
--- OUTSIDE RECORDS SUMMARY | 2024-06-12 11:39 | External Medical Summary | Summary of Care ---
Author Name Unknown Organization [facility] Address [address] [place] [address] Phone [phone] Care Team Providers Care Dish Maker Name Role Phone José Bearden MD Primary Care Provider +1- [phone] Reason for Visit * Reason Comments IV Therapy Venofer 01/31 Encounter Details Date Type Department Care Team (Latest Contact Info) Description 05/21/2024 8:30 AM EDT Hem/Onc Treatment Hematology/Oncology Treatment, [address] [address] Cyndy, Chair [address] [address] Iron deficiency anemia, unspecified iron deficiency anemia type* Allergies Active Allergy Reactions Criticality Noted Date Comments Lactose Intolerance 12/06/2005 documented as of this encounter (statuses as of 05/21/2024) Medications Medication Sig Dispensed Refills Start Date End Date Status Fluticasone Propionate 50 MCG/ACT Nasal Suspension Administer 1 [place] into nostril in the morning. Active Ketotifen [...] as of this encounter (statuses as of 05/21/2024) Active Problems Problem Noted Date Diagnosed Date [...] and it was ordered today. History of Mvkkl-Lxtvdsnrq-Nygyu (WPW) syndrome 12/16/2023 Overview: S/p cardiac ablation 2005. Asymptomatic. Saw cardiology 12/04/22 who states ""The Tqvfi-Rumgnxpna-Sjcxr he has been cured. She has no [...] as of this encounter (statuses as of 05/21/2024) Resolved Problems Problem Noted Date Diagnosed Date [...] repair at 4 months of age at [facility] [Doing well now, aged 9 years] -Declines [...] 11/04/2022 Other chronic allergic conjunctivitis 04/18/2008 11/04/2022 Kkmft-Hhfudtmwn-Rhkzt syndrome 12/24/2005 12/16/2023 Overview: - Luque Parkinson [...] -Declined genetic counseling -Per cardiology 12/04/22: "The Jczqd-Kafqlmuet-Rijry he has been cured. She has no [...] as of this encounter (statuses as of 05/21/2024) Immunizations Name Administration Dates Next Due DTWP [...] money to get more. Never true 04/14/2024 [place] Depression Scale Answer Date Recorded [place] Depression Scale Total 0 12/12/2023 The thought [...] Description 05/24/2024 2:00 PM EDT Pharmacy Pharmacy, [place] [address] [place] [address] Clinic, [facility] [address] [place] [address] 06/02/2024 10:30 AM EDT Office Visit Gynecology/Obstetrics Maddy Villanueva [address] [place] [address] January Wild PA-C [address] [place] [address] Health Maintenance Due Date Last Done Comments GARDASIL-HPV IMMUNIZATION SERIES (3 - 3-dose series) 12/01/2009 08/01/2009, 05/31/2009 COVID-19 Vaccine (2022-24 season) 2023 DTaP,Tdap,and Td Vaccines (8 - [...] Primary documented in this encounter Administered Medications Active Administered Medications - up to 3 most recent administrations Medication Order MAR Action Action Date Dose Rate Site diphenhydrAMINE (Benadryl) inj 50 mg 50 mg, IV Push, ONCE PRN Other, Hypersensitivity Reaction, Starting on Fri05/21/24 at 0847, Until 05/22/24 at 0846, For 24 hours EPINEPHrine 1 MG/ML inj 0.3 mg 0.3 mg, Intramuscular, ONCE PRN Other, Hypersensitivity Reaction or Anaphylaxis, Starting on Fri05/21/24 at 0847, Until 05/22/24 at 0846, For 24 hours hEParin 100 UNIT/ML Lock Flush inj 500 Units 500 Units (5 mL), IV Lock, PRN Other, IV Flush, Starting on Fri05/21/24 at 0847, Until 05/22/24 at 0846, For 24 hours, Do not flush if lock, PICC, or central line not in place; IV infusing or unable to flush. Hydrocortisone Sod Suc (PF) (Solu-Cortef) inj 100 mg 100 mg, IV Push, ONCE PRN Other, Hypersensitivity Reaction, Starting on Fri05/21/24 at 0847, Until 05/22/24 at 0846, For 24 hours NSS infusion 500 mL, Intravenous, at 50 mL/hr, CONTINUOUS, Starting on Fri05/21/24 at 1000, Until Fri05/21/24 at 1959 Start Infusion 05/21/2024 8:55 AM EDT 500 mL 50 mL/hr oxygen GAS Inhalation, OXYGEN, First dose on Fri05/21/24 at 0930, Until Discontinued, Device/Managed by: Low Flow Device, Goal SPO2 (%): 91-95, Starting Device: Nasal Cannula, Initial Flow Rate (LPM): 2, Lowest Support: Nasal Cannula: Flow 0-6 LPM. Titrate up/down by 1 LPM., Higher Support: Non-Rebreather (NRB) Mask: Minimum of 10 LPM. Titrate to maintain bag inflation., Titration Interval: Q2 minutes and as needed., Notify Provider: For sudden DECREASE in resting SPO2 to less than 85% and when escalating delivery device., Wean patient off Oxygen when the oxygen saturation is greater than or equal to 93% sodium chloride 0.9 % flush central line 10 mL 10 mL, IV Push, PRN Other, IV Flush, Starting on Fri05/21/24 at 0847, Until 05/22/24 at 0846, For 24 hours, Do not flush if lock, PICC, or central line not in place; IV infusing or unable to flush. Inactive Administered Medications - up to 3 most recent administrations Medication Order MAR Action Action Date Dose Rate Site Iron Sucrose (Venofer) 300 mg in NSS 250 mL ivpb 300 mg, IV Piggyback, ONCE, 1 dose, On Fri05/21/24 at 1030, Administer over 90 Minutes Start Infusion 05/21/2024 8:57 AM EDT 300 mg 180 mL/hr documented in this encounter Care Teams Dish Maker Relationship Specialty Start Date End Date José Bearden MD [address] [place] [address] PCP - General 03/27/04 documented as of this encounter
--- OUTSIDE RECORDS SUMMARY | 2024-06-12 11:39 | External Medical Summary | Summary of Care ---
Author Name Unknown Organization [facility] Address [address] [place] [address] Phone [phone] Care Team Providers Care Scrap Hooker Name Role Phone José Bearden MD Primary Care Provider +1- [phone] Reason for Visit * Reason Comments Outpatient Testing Encounter Details Date Type Department Care Team (Late st Contact Info) Description 06/02/2024 11:10 AM EDT Laboratory Laboratory, [facility] [address] [facility] [place] [phone] VillanuevaLuis Alberto rashid [facility] [address] [facility] [place] [address] Arrived Allergies Active Allergy Reactions Criticality Noted Date Comments Lactose Intolerance 12/06/2005 documented as of this encounter (statuses as of 06/02/2024) Medications Medication Sig Dispensed Refills Start Date End Date Status Fluticasone Propionate 50 MCG/ACT Nasal Suspension Administer 1 [place] into nostril in the morning. Active Ketotifen [...] and it was ordered today. History of Wbgny-Ykyggownp-Uszwu (WPW) syndrome 12/16/2023 Overview: S/p cardiac ablation 2005. Asymptomatic. Saw cardiology 12/04/22 who states ""The Wwudw-Kzopoewqi-Tdyea he has been cured. She has no [...] repair at 4 months of age at [facility] [Doing well now, aged 9 years] [...] evidence of cardiac abnormality. Anemia during 08/09/2013 120 03/2022 , normal first 03/01/201310/02 Overview: Pt received tdap 08/20/13 Helnea Soria RN Patient declined flu vaccine. 09/03/2013 Helena Soria RN Allergic rhinitis 04/18/2008 11/04/2022 Other chronic allergic conjunctivitis 04/18/2008 11/04/2022 Kfcol-Qwftirqwv-Ejveh syndrome 12/24/2005 12/16/2023 Overview: - Luque Parkinson [...] -Declined genetic counseling -Per cardiology 12/04/22: "The Ubflk-Tvcfluipq-Vylep he has been cured. She has no [...] money to get more. Never true 04/14/2024 [place] Depression Scale Answer Date Recorded [place] Depression Scale Total 0 12/12/2023 The thought [...] 06/16/2024 10:30 AM EDT Office Visit Gynecology/Obstetrics [facility] [address] [place] [address] Ruthy Trevino CRNP [address] [place] [address] 06/21/2024 8:30 AM EDT Laboratory Laboratory, [facility] [place] [phone] [facility] Luis Alberto [facility] [address] [facility] [place] [address] 06/22/2024 9:30 AM EDT Pharmacy Pharmacy, [address] [address] [address] [address] Health Maintenance Due Date Last Done Comments [...] filedocumented as of this encounter Care Teams Scrap Hooker Relationship Specialty Start Date End Date José Bearden MD [address] [place] [address] PCP - General 03/27/04 documented as of this encounter
--- OUTSIDE RECORDS SUMMARY | 2024-06-12 11:39 | External Medical Summary | Summary of Care ---
Author Name Unknown Organization [facility] Address [address] [place] [address] Phone [phone] Care Team Providers Care Bulk Receiver Name Role Phone José Bearden MD Primary Care Provider +1- [phone] Reason for Visit * Reason Comments IV Therapy Venofer 01/31 Encounter Details Date Type Department Care Team (Latest Contact Info) Description 05/21/2024 8:30 AM EDT Hem/Onc Treatment Hematology/Oncology Treatment, [address] [address] Cyndy, Chair 11 Hem On[address] [address] Iron deficiency anemia, unspecified iron deficiency anemia type* Allergies Active Allergy Reactions Criticality Noted Date Comments Lactose Intolerance 12/06/2005 documented as of this encounter (statuses as of 06/09/2024) Medications Medication Sig Dispensed Refills Start Date End Date Status Fluticasone Propionate 50 MCG/ACT Nasal Suspension Administer 1 [place] into nostril in the morning. Active Ketotifen [...] as of this encounter (statuses as of 06/09/2024) Active Problems Problem Noted Date Diagnosed Date [...] and it was ordered today. History of Rlwxe-Ynsudcnsw-Glrpy (WPW) syndrome 12/16/2023 Overview: S/p cardiac ablation 2005. Asymptomatic. Saw cardiology 12/04/22 who states ""The Wmflk-Cjqfguzwp-Dstwc he has been cured. She has no [...] as of this encounter (statuses as of 06/09/2024) Resolved Problems Problem Noted Date Diagnosed Date [...] repair at 4 months of age at [facility] [Doing well now, aged 9 years] [...] 11/04/2022 Other chronic allergic conjunctivitis 04/18/2008 11/04/2022 Zliyp-Irtegepax-Vxkkc syndrome 12/24/2005 12/16/2023 Overview: - Luque Parkinson [...] -Declined genetic counseling -Per cardiology 12/04/22: "The Pznbh-Wuydropcn-Ldkwu he has been cured. She has no [...] as of this encounter (statuses as of 06/09/2024) Immunizations Name Administration Dates Next Due DTWP [...] Gynecology/Obstetrics Maddy Perezs [address] [place] [address] Ruthy Trevino CRNP [address] [place] [address] 06/21/2024 8:30 AM EDT [facility] [address] [place] [phone] VillanuevaLuis Alberto rashid [address] [place] [address] 06/22/2024 9:30 AM EDT Pharmacy Pharmacy, [place] [address] [place] [address] Clinic, [facility] [address] [place] [address] Health Maintenance Due Date Last Done Comments [...] mL/hr documented in this encounter Care Teams Bulk Receiver Relationship Specialty Start Date End Date José Bearden MD [address] [facility] [place] [address] PCP - General 03/27/04 documented as of this encounter
--- OUTSIDE RECORDS SUMMARY | 2024-06-12 11:39 | External Medical Summary | Summary of Care ---
Author Name Unknown Organization [facility] Address [address] [place] [address] Phone [phone] Care Team Providers Care French Edge Operator Name Role Phone José Bearden MD Primary Care Provider +1- [phone] Reason for Visit * Reason Comments IV Therapy Venofer Encounter Details Date Type Department Care Team (Latest Contact Info) Description 05/14/2024 8:45 AM EDT Hem/Onc Treatment Hematology/Oncology Treatment, [address] [address] Cyndy, Chair 2 Hem Onc [address] [address] Iron deficiency anemia, unspecified iron deficiency anemia type* Allergies Active Allergy Reactions Criticality Noted Date Comments Lactose Intolerance 12/06/2005 documented as of this encounter (statuses as of 06/09/2024) Medications Medication Sig Dispensed Refills Start Date End Date Status Fluticasone Propionate 50 MCG/ACT Nasal Suspension Administer 1 [place] into nostril in the morning. Active Ketotifen [...] and it was ordered today. 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 Asymptomatic. Saw cardiology 12/04/22 who states ""The Kinrv-Vggoeznfj-Bqbvq he has been cured. She has no [...] repair at 4 months of age at [facility] [Doing well now, aged 9 years] -Declines [...] 11/04/2022 Other chronic allergic conjunctivitis 04/18/2008 11/04/2022 Vmvrp-Mejfhxvzd-Eiqye syndrome 12/24/2005 12/16/2023 Overview: - Luque Parkinson [...] -Declined genetic counseling -Per cardiology 12/04/22: "The Eeipw-Akylbwkiw-Tlosd he has been cured. She has no [...] Date Smoking Tobacco: Never Smokeless Tobacco: Never Tobacco Cessation:Counseling Given: Not Answered Comments:no passive smoke exposure Alcohol Use Standard Drinks/Week Comments Not Currently [...] money to get more. Never true 04/14/2024 [place] Depression Scale Answer Date Recorded [place] Depression Scale Total 0 12/12/2023 The thought [...] Sign Reading Time Taken Comments Blood Pressure 107/66 05/14/2024 8:59 AM EDT Pulse 88 05/14/2024 8:59 AM EDT Temperature 36.8 C (98.3 F) 05/14/2024 8:59 AM ED T Respiratory Rate 16 05/14/2024 8:59 AM EDT Oxygen Saturation 96% 05/14/2024 8:59 AM EDT Inhaled Oxygen Concentration - - Weight - - Height - - Body Mass Index - - documented in this encounter Nursing Notes * Pamela Rothman LPN - 05/14/2024 8:59 AM EDT Patient arrived Chair 6 for IV therapy Venofer. Vital signs are stable. IV access successful at theright antecubital vein. IV line flushed with ease; IV fluids connected and infusing. Call walter within reach. Patient completed IV therapy Venofer. IV access was discontinued; site was cleaned and bandaged. Patient will return in 1 week. Patient discharged in stable condition. documented in this encounter Plan of Treatment Upcoming Encounters Date Type Department Care Team (Late st Contact Info) Description 06/16/2024 10:30 AM EDT Office Visit Gynecology/Obstetrics [facility] [address] [facility] [place] [address] Ruthy Trevino CRNP [facility] [address] 06/21/2024 8:30 AM EDT [facility] [address] [facility] [place] [id number] VillanuevaLuis Alberto rashid [facility] [place] [address] 06/22/2024 9:30 AM EDT Pharmacy Pharmacy, [place] [address] [place] [address] Clinic, [facility] [address] [place] [address] Health Maintenance Due Date Last Done Comments HPV (Gardasil) Vaccine (3 - 3-dose series) 12/01/2009 08/01/2009, 05/31/2009 COVID-19 Vaccine ( season) 2023 DTaP,Tdap,and Td Vaccines (8 - [...] mg, IV Piggyback, ONCE, 1 dose, On Fri05/14/24 at 1030, Administer over 90 Minutes Start Infusion 05/14/2024 8:56 AM EDT 300 mg 180 mL/hr NSS infusion 500 mL, Intravenous, at 50 mL/hr, CONTINUOUS, Starting on Fri05/14/24 at 1000, Until Fri05/14/24 at 1454 Start Infusion 05/14/2024 8:54 AM EDT 500 mL 50 mL/hr documented in this encounter Care Teams French Edge Operator Relationship Specialty Start Date End Date José Bearden MD [address] [place], [place] [id number] PCP - General 03/27/04 documented as of this encounter
--- OUTSIDE RECORDS SUMMARY | 2024-06-12 11:40 | External Medical Summary | Summary of Care ---
Author Name Unknown Organization [facility] Address [address] [place] [address] Phone [phone] Care Team Providers Care Elevator Pilot Name Role Phone José Bearden MD Primary Care Provider +1- [phone] Reason for Visit * Reason Onset Date Comments Appointment 04/29/2024 Tho Encounter Details Date Type Department Care Team (Late st Contact Info) Description 04/29/2024 Telephone Hematology/Oncology Enzo Naylor [place] [address] [facility] [place] [address] Ruthy Trevino CRNP [address] [place] [address] Appointment (Tho) Allergies Active Allergy Reactions Criticality Noted Date Comments Lactose Intolerance 12/06/2005 documented as of this encounter (statuses as of 04/29/2024) Medications Medication Sig Dispensed Refills Start Date End Date Status Fluticasone Propionate 50 MCG/ACT Nasal Suspension Administer 1 [place] into nostril in the morning. Active [...] as of this encounter (statuses as of 04/29/2024) Active Problems Problem Noted Date Diagnosed Date [...] and it was ordered today. 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 Asymptomatic. Saw cardiology 12/04/22 who states ""The Faejp-Cwjubpluk-Uxfbg he has been cured. She has no [...] as of this encounter (statuses as of 04/29/2024) Resolved Problems Problem Noted Date Diagnosed Date [...] repair at 4 months of age at [facility] [Doing well now, aged 9 years] [...] 11/04/2022 Other chronic allergic conjunctivitis 04/18/2008 11/04/2022 Ampkb-Pjoyznqfh-Qgngg syndrome 12/24/2005 12/16/2023 Overview: - Luque Parkinson [...] -Declined genetic counseling -Per cardiology 12/04/22: "The Hsgvt-Jywvtwgqm-Dackb he has been cured. She has no [...] as of this encounter (statuses as of 04/29/2024) Immunizations Name Administration Dates Next Due DTWP [...] money to get more. Never true 04/14/2024 [place] Depression Scale Answer Date Recorded [place] Depression Scale Total 0 12/12/2023 The thought of harming myself has occurred to me . Never 12/12/2023 Estimated Date of Delivery Comme nts Yes [...] encounter Miscellaneous Notes * Telephone Encounter - Dario Kasper RN - 04/29/2024 1:38 PM EDT Orders received, beacon plan built and routed. Can schedule once signed. documented in this encounter Plan of Treatment Upcoming Encounters Date Type Department Care Team (Late st Contact Info) Description 04/29/2024 4:00 PM EDT Pharmacy Pharmacy, [place] [address] [place] [address] Clinic, Anemia [address] [place] [address] Antepartum anemia complicating * 05/13/2024 1:00 PM EDT Pharmacy Pharmacy, [place] [address] [place] [address] Clinic, Anemia [address] [place] [address] Health Maintenance Due Date Last Done Comments [...] HPV/Co-Test 12/12/2028 12/12/2023 Hepatitis B Completed 04/14/2002, 0801/2001, 05/19/2001 MENINGOCOCCAL (MENACTRA/MENVEO) Aged Out No longer eligible based on patient's age to complete this topic Pneumococcal Vaccine: Pediatrics (0 to 5 Years) and At-Risk Patients (6 to 64 Years) Aged Out No longer eligible based on patient's age to complete this topic documented as of this encounter Medical Devices Not on filedocumented as of this encounter Care Teams Elevator Pilot Relationship Specialty Start Date End Date José Bearden MD [address] [place] [address] PCP - General 03/27/04 documented as of this encounter
--- OUTSIDE RECORDS SUMMARY | 2024-06-12 11:40 | External Medical Summary | Summary of Care ---
Author Name Unknown Organization [facility] Address [address] [place] [address] Phone [phone] Care Team Providers Care Cashier Manager Name Role Phone José Bearden MD Primary Care Provider +1- [phone] Reason for Visit * Reason Comments IV Therapy Venofer Encounter Details Date Type Department Care Team (Latest Contact Info) Description 05/14/2024 8:45 AM EDT Hem/Onc Treatment Hematology/Oncology Treatment, [address] [address] Cyndy, Chair 2 Hem Onc [address] [address] Iron deficiency anemia, unspecified iron deficiency anemia type* Allergies Active Allergy Reactions Criticality Noted Date Comments Lactose Intolerance 12/06/2005 documented as of this encounter (statuses as of 05/14/2024) Medications Medication Sig Dispensed Refills Start Date End Date Status Fluticasone Propionate 50 MCG/ACT Nasal Suspension Administer 1 [place] into nostril in the morning. Active [...] as of this encounter (statuses as of 05/14/2024) Active Problems Problem Noted Date Diagnosed Date [...] and it was ordered today. 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 Asymptomatic. Saw cardiology 12/04/22 who states ""The Khwrb-Hykroshiv-Mkbts he has been cured. She has no [...] as of this encounter (statuses as of 05/14/2024) Resolved Problems Problem Noted Date Diagnosed Date [...] 4 months of age at [facility] [Doing well now, aged 9 years] -Declines [...] 11/04/2022 Other chronic allergic conjunctivitis 04/18/2008 11/04/2022 Cacll-Baxurkhla-Zzcji syndrome 12/24/2005 12/16/2023 Overview: - Luque Parkinson [...] -Declined genetic counseling -Per cardiology 12/04/22: "The Yhgyo-Tzdzkxtrm-Stgdp he has been cured. She has no [...] as of this encounter (statuses as of 05/14/2024) Immunizations Name Administration Dates Next Due DTWP [...] money to get more. Never true 04/14/2024 [place] Depression Scale Answer Date Recorded [place] Depression Scale Total 0 12/12/2023 The thought [...] Description 05/19/2024 8:45 AM EDT Office Visit Gynecology/Obstetrics Maddy Villanueva [address] [place] [address] Mode Mendiola MD [address] [place] [address] 05/21/2024 8:30 AM EDT Hem/Onc Treatment Hematology/Oncology Treatment, [place] [address] [place] [address] Cyndy, Chair 11 Hem Onc [place] [address] [place] [address] 05/24/2024 2:00 PM EDT Pharmacy Pharmacy, [place] [address] [place] [address] Clinic, Anemia [address] [place] [address] Health Maintenance Due Date Last Done Comments [...] ONCE PRN Other, Hypersensitivity Reaction, Starting on Fri05/14/24 at 0853, Until 05/15/24 at 0852, For 24 hours EPINEPHrine 1 MG/ML inj 0.3 mg 0.3 mg, Intramuscular, ONCE PRN Other, Hypersensitivity Reaction or Anaphylaxis, Starting on Fri05/14/24 at 0853, Until 05/15/24 at 0852, For 24 hours hEParin 100 UNIT/ML Lock Flush inj 500 Units 500 Units (5 mL), IV Lock, PRN Other, IV Flush, Starting on Fri05/14/24 at 0853, Until 05/15/24 at 0852, For 24 hours, Do not flush if lock, PICC, or central line not in place; IV infusing or unable to flush. Hydrocortisone Sod Suc (PF) (Solu-Cortef) inj 100 mg 100 mg, IV Push, ONCE PRN Other, Hypersensitivity Reaction, Starting on Fri05/14/24 at 0853, Until 05/15/24 at 0852, For 24 hours NSS infusion 500 mL, Intravenous, at 50 mL/hr, CONTINUOUS, Starting on Fri05/14/24 at 1000, Until Fri05/14/24 at 1959 Start Infusion 05/14/2024 8:54 AM EDT 500 mL 50 mL/hr oxygen GAS Inhalation, OXYGEN, First dose on Fri05/14/24 at 0930, Until Discontinued, Device/Managed by: Low [...] Push, PRN Other, IV Flush, Starting on Fri05/14/24 at 0853, Until 05/15/24 at 0852, For 24 hours, Do not flush if [...] 8:56 AM EDT 300 mg 180 mL/hr documented in this encounter Care Teams Cashier Manager Relationship Specialty Start Date End Date José Bearden MD [address] [place] [address] PCP - General 03/27/04 documented as of this encounter
--- OUTSIDE RECORDS SUMMARY | 2024-06-12 11:40 | External Medical Summary | Summary of Care ---
Author Name Unknown Organization [facility] Address [address] [place] [address] Phone [phone] Care Team Providers Care Loom Inspector Name Role Phone José Bearden MD Primary Care Provider +1- [phone] Reason for Referral * (Within 10 days (routine)) Specialty Diagnoses / Procedures Referred By Will joyner Referred To Contact Ruthy Trevino CRNP [address] [place] [address] Referral ID Status Reason Start Date Expiration Date Visits Re quested Visits Authorized Question Answer Referral Priority Within 10 days (routine) Where should this appointment be scheduled? [facility] Reason for Visit * Reason Onset Date Comments Test Results 04/15/2024 Encounter Details Date Type Department Care Team (Late st Contact Info) Description 04/15/2024 Telephone Gynecology/Obstetrics [facility] [address] [place] [address] Ruthy Trevino CRNP [address] [place] [address] Test Results Allergies Active Allergy Reactions Criticality Noted Date Comments Lactose Intolerance 12/06/2005 documented as of this encounter (statuses as of 04/28/2024) Medications Medication Sig Dispensed Refills Start Date End Date Status Fluticasone Propionate 50 MCG/ACT Nasal Suspension Administer 1 [place] into nostril in the morning. Active Ketotifen [...] as of this encounter (statuses as of 04/28/2024) Active Problems Problem Noted Date Diagnosed Date Echogenic intracardiac focus of fetus on ultrasound [...] and it was ordered today. 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 Asymptomatic. Saw cardiology 12/04/22 who states ""The Zpbvl-Desinibhl-Ggsch he has been cured. She has no [...] as of this encounter (statuses as of 04/28/2024) Resolved Problems Problem Noted Date Diagnosed Date [...] repair at [address] 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 She likely attributes this to second trimester . -Declined genetic counseling -Per cardiology 12/04/22: "The Gbffj-Wbcqiicre-Rubql he has been cured. She has no [...] as of this encounter (statuses as of 04/28/2024) Immunizations Name Administration Dates Next Due DTWP [...] money to get more. Never true 04/14/2024 [place] Depression Scale Answer Date Recorded [place] Depression Scale Total 0 12/12/2023 The thought [...] encounter Miscellaneous Notes * Telephone Encounter - Latisha Pal RN - 04/28/2024 11:25 AM EDT No order for iron has been received. Per chart review, referral was made to anemia clinic. * Telephone Encounter - Alyssa Ordonez OSA - 04/28/2024 11:05 AM EDT Per call center - Lyndsey Wesley on the line to schedule iron infusions, says she has been waiting a few weeks for a callback but I don't see anywhere that she called Nursing - Please advise if we are to schedule.? * Telephone Encounter - Geeta Naylor RN - 04/16/2024 9:22 AM EDT Spoke with pt. She is agreeable to both. Pharmacy updated. * Telephone Encounter - Ruthy Trevino CRNP - 04/15/2024 8:40 AM EDT Please notify pt that she passed her glucola but she is very anemic. She needs to do 2 things: IV iron infusions. If agreeable route back so I can place order Oral Vitamin B12. This can help anemia. Ask pharmacy preference so I can send rx. documented in this encounter Plan of Treatment Upcoming Encounters Date Type Department Care Team (Late st Contact Info) Description 04/29/2024 4:00 PM EDT Pharmacy Pharmacy, [address] [address] Clinic, [place] [address] Scheduled Referrals Name Type Priority Associated Diagnoses Orde r Schedule BLOOD MANAGEMENT REFERRAL Referral Within 10 days (routine) Antepartum anemia complicating Ordered: 04/16/2024 Health Maintenance Due Date Last [...] antepartum documented in this encounter Care Teams Loom Inspector Relationship Specialty Start Date End Date José Bearden MD [address] [place] [address] PCP - General 03/27/04 documented as of this encounter
--- OUTSIDE RECORDS SUMMARY | 2024-06-12 11:40 | External Medical Summary | Summary of Care ---
Author Name Unknown Organization [facility] Address [address] [place] [address] Phone [phone] Care Team Providers Care Team Automobile Assembler Name Role Phone José Bearden MD Primary Care Provider +1- [phone] Reason for Visit * Reason Onset Date Comments Appointment 04/29/2024 Tho Encounter Details Date Type Department Care Team (Late st Contact Info) Description 04/29/2024 Telephone Hematology/Oncology Enzo Naylor [place] [address] [facility] [place] [address] Ruthy Trevino CRNP [address] [place] [address] Appointment (Tho) Allergies Active Allergy Reactions Criticality Noted Date Comments Lactose Intolerance 12/06/2005 documented as of this encounter (statuses as of 05/03/2024) Medications Medication Sig Dispensed Refills Start Date End Date Status Fluticasone Propionate 50 MCG/ACT Nasal Suspension Administer 1 [place] into nostril in the morning. Active [...] as of this encounter (statuses as of 05/03/2024) Active Problems Problem Noted Date Diagnosed Date [...] and it was ordered today. 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 Asymptomatic. Saw cardiology 12/04/22 who states ""The Hsbyt-Phzertxcj-Xrhcl he has been cured. She has no [...] as of this encounter (statuses as of 05/03/2024) Resolved Problems Problem Noted Date Diagnosed Date [...] repair at 4 months of age at [facility] [Doing well now, aged 9 years] [...] 11/04/2022 Other chronic allergic conjunctivitis 04/18/2008 11/04/2022 Rvzkj-Kttzvxwsv-Cyrvd syndrome 12/24/2005 12/16/2023 Overview: - Luque Parkinson [...] -Declined genetic counseling -Per cardiology 12/04/22: "The Cxnok-Eeunpjzlj-Dpzww he has been cured. She has no [...] as of this encounter (statuses as of 05/03/2024) Immunizations Name Administration Dates Next Due DTWP [...] money to get more. Never true 04/14/2024 [place] Depression Scale Answer Date Recorded [place] Depression Scale Total 0 12/12/2023 The thought [...] Telephone Encounter - Latisha Pal RN - 05/03/2024 7:51 AM EDT [place] is signed. Scheduling: please call patient to schedule 2 hour appt "venofer 12/03" (Ruthy Trevino). Thanks! Patient will need venofer once a week x3. * Telephone Encounter - Dario Kasper RN - 04/29/2024 1:38 PM EDT Orders received, beacon plan built and routed. Can schedule once signed. documented in this encounter Plan of Treatment Upcoming Encounters Date Type Department Care Team (Late st Contact Info) Description 05/13/2024 1:00 PM EDT Pharmacy Pharmacy, [place] [address] [place] [address] Clinic, [place] [address] [place] [address] Health Maintenance Due Date Last Done Comments [...] filedocumented as of this encounter Care Teams Team Automobile Assembler Relationship Specialty Start Date End Date José Bearden MD [address] [place] [address] PCP - General 03/27/04 documented as of this encounter
--- OUTSIDE RECORDS SUMMARY | 2024-06-12 11:40 | External Medical Summary | Summary of Care ---
Author Name Unknown Organization [facility] Address [address] [place] [address] Phone [phone] Care Team Providers Care Drier Unloader Name Role Phone José Bearden MD Primary Care Provider +1- [phone] Reason for Visit * Reason Onset Date Comments Anemia Follow-Up 04/29/2024 * Evaluate & Treat - Unlimited Visits (Within 3 days (urgent)) - Pending Review Specialty Diagnoses / Procedures Referred By Will joyner Referred To Contact Pharmacist / Pharmacy Diagnoses Anemia in Ruthy Trevino CRNP [address] [place] [address] Referral ID Status Reason Start Date Expiration Date Visits Requested Visits Authorized [id number] Pending Review Specialty Services Required 04/16/2024 99 [phone] Encounter Details Date Type Department Care Team (Late st Contact Info) Description 04/29/2024 4:00 PM EDT Pharmacy Pharmacy, [place] [address] [place] [address] Clinic, Anemia [address] [place], [place] [id number] Antepartum anemia complicating * Allergies Active Allergy Reactions Criticality Noted Date Comments Lactose Intolerance 12/06/2005 documented as of this encounter (statuses as of 04/29/2024) Medications Medication Sig Dispensed Refills Start Date End Date Status Fluticasone Propionate 50 MCG/ACT Nasal Suspension Administer 1 [place] into nostril in the morning. Active Ketotifen [...] and it was ordered today. 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 Asymptomatic. Saw cardiology 12/04/22 who states ""The Medxe-Uplywidgy-Zdkdx he has been cured. She has no [...] repair at 4 months of age at [facility] [Doing well now, aged 9 [...] 11/04/2022 Other chronic allergic conjunctivitis 04/18/2008 11/04/2022 Skfkx-Zjqrfqdnv-Vqdqv syndrome 12/24/2005 12/16/2023 Overview: - Luque Parkinson [...] -Declined genetic counseling -Per cardiology 12/04/22: "The Kvanf-Vdwcnqmob-Oiybf he has been cured. She has no [...] money to get more. Never true 04/14/2024 [place] Depression Scale Answer Date Recorded [place] Depression Scale Total 0 12/12/2023 The thought [...] as of this encounter Progress Notes * Halle Galicia, [facility] - 04/29/2024 1:13 PM EDT Patient Phone Numbers Patient referred by BRIT Shafer for evaluation of anemia by the Anemia Clinic. Called patient to introduce role/clinic and to review labs from 04/14. Hgb: 9.3 g/dL TSAT: 18 % Ferritin: 22 ng/mL B12: 205 pg/mL FA: 12.2 ng/mL GA: 29w6d Estimated Date of Delivery: 07/09/24 Hgb is below target range for the third trimester. Iron studies within target range. B12 level below target range. FA level within target range. Patient reports feeling extra tired most of the time and otherwise denies signs/symptoms of anemia.Patient is taking B12 1000mcg daily and appears to be tolerating it well. Oral iron replenishment inadequate or contraindicated. Patient qualifies for IV iron repletion. Plan: Venofer 300 mg IV weekly x 3 doses at SP. Orders placed and routed to appropriate parties. Patient agreeable to intervention. Follow-up labs to be scheduled ~4-6 weeks after iron repletion completed if appropriate prior to delivery. Anemia Clinic will continue to follow. Thank you for allowing us to participate in the care of thispatient. Thanks, Halle Galicia [facility] Clinical Pharmacist [facility] (P: [phone]) 04/29/2024 1:13 PM documented in this encounter Plan of Treatment Upcoming Encounters Date Type Department Care Team (Late st Contact Info) Description 05/13/2024 1:00 PM EDT Pharmacy Pharmacy, [address] [address] Clinic, Anemia [address] [place] [id number] Scheduled Referrals Name Type Priority Associated Diagnoses [...] antepartum documented in this encounter Care Teams Drier Unloader Relationship Specialty Start Date End Date José Bearden MD [address] [facility] [place] [address] PCP - General 03/27/04 documented as of this encounter
--- OUTSIDE RECORDS SUMMARY | 2024-06-12 11:40 | External Medical Summary | Summary of Care ---
Author Name Unknown Organization [facility] Address [address] [place] [address] Phone [phone] Care Team Providers Care Rental Agent Name Role Phone José Bearden MD Primary Care Provider +1- [phone] Reason for Referral * (Within 10 days (routine)) Specialty Diagnoses / Procedures Referred By Will joyner Referred To Contact Ruthy Trevino CRNP [address] [place] [address] Referral ID Status Reason Start Date Expiration Date Visits Re quested Visits Authorized Question Answer Referral Priority Within 10 days (routine) Where should this appointment be scheduled? [facility] Reason for Visit * Reason Onset Date Comments Test Results 04/15/2024 Encounter Details Date Type Department Care Team (Late st Contact Info) Description 04/15/2024 Telephone Gynecology/Obstetrics [facility] [address] [place] [address] Ruthy Trevino CRNP [address] [place] [address] Test Results Allergies Active Allergy Reactions Criticality Noted Date Comments Lactose Intolerance 12/06/2005 documented as of this encounter (statuses as of 04/28/2024) Medications Medication Sig Dispensed Refills Start Date End Date Status Fluticasone Propionate 50 MCG/ACT Nasal Suspension Administer 1 [place] into nostril in the morning. Active Ketotifen [...] and it was ordered today. 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 Asymptomatic. Saw cardiology 12/04/22 who states ""The Thpfg-Mysmmbrrf-Scehs he has been cured. She has no [...] repair at 4 months of age at [facility] [Doing well now, aged 9 years] -Declines [...] 11/04/2022 Other chronic allergic conjunctivitis 04/18/2008 11/04/2022 Kfghy-Cfsjucbbn-Krrjs syndrome 12/24/2005 12/16/2023 Overview: - Luque Parkinson [...] -Declined genetic counseling -Per cardiology 12/04/22: "The Kbslt-Mhluxzjqh-Tstrj he has been cured. She has no [...] money to get more. Never true 04/14/2024 [employer] [employer] Depression Scale Answer Date Recorded [employer] Depression Scale Total 0 12/12/2023 The thought [...] encounter Miscellaneous Notes * Telephone Encounter - Alyssa Ordonez OSA [...] Description 04/29/2024 4:00 PM EDT Pharmacy Pharmacy, [address] [address] Clinic, Anemia [facility] [place] [address] Scheduled Referrals Name Type Priority Associated Diagnoses [...] antepartum documented in this encounter Care Teams Rental Agent Relationship Specialty Start Date End Date José Bearden MD [address] [facility] [place] [address] PCP - General 03/27/04 documented as of this encounter
--- OUTSIDE RECORDS SUMMARY | 2024-06-12 11:40 | External Medical Summary | Summary of Care ---
Author Name Unknown Organization [facility] Address [address] [place] [address] Phone [phone] Care Team Providers Care Agriculture Scientist Name Role Phone José Bearden MD Primary Care Provider +1- [phone] Reason for Visit * Reason Onset Date Comments Appointment 04/29/2024 Tho Encounter Details Date Type Department Care Team (Late st Contact Info) Description 04/29/2024 Telephone Hematology/Oncology Enzo Naylor [place] [address] [facility] [place] [address] Ruthy Trevino CRNP [address] [place] [address] Appointment (Tho) Allergies Active Allergy Reactions Criticality Noted Date Comments Lactose Intolerance 12/06/2005 documented as of this encounter (statuses as of 05/03/2024) Medications Medication Sig Dispensed Refills Start Date End Date Status Fluticasone Propionate 50 MCG/ACT Nasal Suspension Administer 1 [place] into nostril in the morning. Active Ketotifen [...] and it was ordered today. 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 Asymptomatic. Saw cardiology 12/04/22 who states ""The Snvrv-Ebummfsbz-Mznhx he has been cured. She has no [...] repair at 4 months of age at [facility] [Doing well now, aged 9 years] -Declines [...] 11/04/2022 Other chronic allergic conjunctivitis 04/18/2008 11/04/2022 Eybns-Nqfllpddo-Nbgmw syndrome 12/24/2005 12/16/2023 Overview: - Luque Parkinson [...] -Declined genetic counseling -Per cardiology 12/04/22: "The Dzxlo-Rhvaxrhue-Kehdw he has been cured. She has no [...] money to get more. Never true 04/14/2024 [place] Depression Scale Answer Date Recorded [place] Depression Scale Total 0 12/12/2023 The thought [...] Miscellaneous Notes * Telephone Encounter - Alyssa Fabian OSA - 05/03/2024 8:04 AM EDT Lmom * Telephone Encounter - Latisha Pal RN - 05/03/2024 7:51 AM EDT [place] is signed. Scheduling: please call patient to [...] Description 05/13/2024 1:00 PM EDT Pharmacy Pharmacy, [place] [address] [place] [address] Clinic, [facility] [address] [place] [address] Health Maintenance Due Date Last Done Comments [...] filedocumented as of this encounter Care Teams Agriculture Scientist Relationship Specialty Start Date End Date José Bearden MD [address] [place] [address] PCP - General 03/27/04 documented as of this encounter
--- OUTSIDE RECORDS SUMMARY | 2024-06-12 11:40 | External Medical Summary | Summary of Care ---
Author Name Unknown Organization [facility] Address [address] [place] [address] Phone [phone] Care Team Providers Care Laundry Operator Name Role Phone José Bearden MD Primary Care Provider +1- [phone] Reason for Visit * Reason Onset Date Comments Appointment 04/29/2024 Tho Encounter Details Date Type Department Care Team (Late st Contact Info) Description 04/29/2024 Telephone Hematology/Oncology Enzo Naylor [place] [address] [facility] [place] [address] Ruthy Trevino CRNP [address] [place] [address] Appointment (Tho) Allergies Active Allergy Reactions Criticality Noted Date Comments Lactose Intolerance 12/06/2005 documented as of this encounter (statuses as of 05/03/2024) Medications Medication Sig Dispensed Refills Start Date End Date Status Fluticasone Propionate 50 MCG/ACT Nasal Suspension Administer 1 [place] into nostril in the morning. Active Ketotifen [...] and it was ordered today. 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 Asymptomatic. Saw cardiology 12/04/22 who states ""The Oexls-Euvdkqzwl-Jjnip he has been cured. She has no [...] repair at 4 months of age at [facility] [Doing well now, aged 9 [...] 11/04/2022 Other chronic allergic conjunctivitis 04/18/2008 11/04/2022 Xjzys-Cqnyomvgv-Dpmpa syndrome 12/24/2005 12/16/2023 Overview: - Luque Parkinson [...] -Declined genetic counseling -Per cardiology 12/04/22: "The Emhxm-Aipihnftz-Owujk he has been cured. She has no [...] money to get more. Never true 04/14/2024 [place] Depression Scale Answer Date Recorded [place] Depression Scale Total 0 12/12/2023 The thought [...] Telephone Encounter - Alyssa Ordonez OSA - 05/03/2024 9:17 AM EDT Left message * Telephone Encounter - Julisa Roblero OSA - 05/03/2024 8:46 AM EDT Patient returning call to schedule infusion appointment. Patient can be contacted at [phone]. * Telephone Encounter - Alyssa Fabian OSA - 05/03/2024 8:04 AM EDT Lmom * Telephone Encounter - Latisha Pal RN - 05/03/2024 7:51 AM EDT [place] is signed. Scheduling: please call patient to [...] Description 05/13/2024 1:00 PM EDT Pharmacy Pharmacy, [address] [address] Clinic, [address] [address] Health Maintenance Due Date Last Done Comments [...] filedocumented as of this encounter Care Teams Laundry Operator Relationship Specialty Start Date End Date José Bearden MD [address] [place] [address] PCP - General 03/27/04 documented as of this encounter
--- OUTSIDE RECORDS SUMMARY | 2024-06-12 11:40 | External Medical Summary | Summary of Care ---
Author Name Unknown Organization [facility] Address [address] [place] [address] Phone [phone] Care Team Providers Care Channeling Machine Runner Name Role Phone José Bearden MD Primary Care Provider +1- [phone] Reason for Visit * Reason Onset Date Comments Appointment 04/29/2024 Tho Encounter Details Date Type Department Care Team (Late st Contact Info) Description 04/29/2024 Telephone Hematology/Oncology Enzo Naylor [place] 200 [facility] [place] [address] Ruthy Trevino CRNP [address] [place] [address] Appointment (Tho) Allergies Active Allergy Reactions Criticality Noted Date Comments Lactose Intolerance 12/06/2005 documented as of this encounter (statuses as of 05/03/2024) Medications Medication Sig Dispensed Refills Start Date End Date Status Fluticasone Propionate 50 MCG/ACT Nasal Suspension Administer 1 [place] into nostril in the morning. Active Ketotifen [...] and it was ordered today. 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 Asymptomatic. Saw cardiology 12/04/22 who states ""The Ptvwg-Fvawzcyxr-Tpvhe he has been cured. She has no [...] repair at 4 months of age at [facility] [Doing well now, aged 9 [...] 11/04/2022 Other chronic allergic conjunctivitis 04/18/2008 11/04/2022 Fdwmf-Zqslfgtbu-Ujaoh syndrome 12/24/2005 12/16/2023 Overview: - Luque Parkinson [...] -Declined genetic counseling -Per cardiology 12/04/22: "The Rjhlj-Rihnripzf-Zbfyc he has been cured. She has no [...] money to get more. Never true 04/14/2024 [place] Depression Scale Answer Date Recorded [place] Depression Scale Total 0 12/12/2023 The thought [...] Encounter - Alyssa Fabian OSA - 05/03/2024 10:28 AM EDT Tx scheduled Pt aware * Telephone Encounter - Julisa Cardoso OSA - 05/03/2024 10:04 AM EDT Patient returned call to schedule iron infusions. Please contact Lyndsey at [phone]. Thank you. * Telephone Encounter - Alyssa Ordonez OSA - 05/03/2024 9:17 AM EDT Left message * Telephone Encounter - Julisa Roblero OSA - 05/03/2024 8:46 AM EDT Patient returning call to schedule infusion appointment. Patient can be contacted at [phone]. * Telephone Encounter - Alyssa Fabian OSA - 05/03/2024 8:04 AM EDT Lmom * Telephone Encounter - Latisha Pal RN - 05/03/2024 7:51 AM EDT [place] is signed. Scheduling: please call patient to [...] Care Team (Late st Contact Info) Description 05/05/2024 9:30 AM EDT Hem/Onc Treatment Hematology/Oncology Treatment, [address] [address] Cyndy, Chair [address] Hem On[address] [address] 05/13/2024 1:00 PM EDT Pharmacy Pharmacy, [place] [address] [place] [address] Clinic, [facility] [address] [place] [address] Health Maintenance Due Date Last Done Comments GARDASIL-HPV IMMUNIZATION SERIES (3 - 3-dose series) 12/01/2009 08/01/2009, 05/31/2009 COVID-19 Vaccine (2022- season) 2023 DTaP,Tdap,and Td Vaccines (8 - Td or Tdap) 08/20/2023 08/20/2013, 12/24/2005, 06/19/1995, Additional history exists Influenza Vaccine (FLU shot) (Season Ended) 2024 Depression Screening 04/14/2025 04/14/2024 Pap Smear 12/12/2026 12/12/2023, 02, 12/23/2016, Additional history exists Cervical Cancer Screening [...] filedocumented as of this encounter Care Teams Channeling Machine Runner Relationship Specialty Start Date End Date José Bearden MD [address] [place] [address] PCP - General 03/27/04 documented as of this encounter
--- OUTSIDE RECORDS SUMMARY | 2024-06-12 11:40 | External Medical Summary | Summary of Care ---
Author Name Unknown Organization [facility] Address [address] [place] [address] Phone [phone] Care Team Providers Care Charge Weigher Name Role Phone José Bearden MD Primary Care Provider +1- [phone] Reason for Visit * Reason Comments IV Therapy Venofer12/03 Encounter Details Date Type Department Care Team (Latest Contact Info) Description 05/05/2024 9:30 AM EDT Hem/Onc Treatment Hematology/Oncology Treatment, [address] [address] Cyndy, Chair 10 Hem On[address] [address] Iron deficiency anemia, unspecified iron deficiency anemia type* Allergies Active Allergy Reactions Criticality Noted Date Comments Lactose Intolerance 12/06/2005 documented as of this encounter (statuses as of 05/05/2024) Medications Medication Sig Dispensed Refills Start Date End Date Status Fluticasone Propionate 50 MCG/ACT Nasal Suspension Administer 1 [place] into nostril in the morning. Active [...] as of this encounter (statuses as of 05/05/2024) Active Problems Problem Noted Date Diagnosed Date [...] and it was ordered today. 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 Asymptomatic. Saw cardiology 12/04/22 who states ""The Ozhsr-Saflijuny-Fteyw he has been cured. She has no [...] as of this encounter (statuses as of 05/05/2024) Resolved Problems Problem Noted Date Diagnosed Date [...] 4 months of age at [facility] [Doing well now, aged 9 years] -Declines [...] 11/04/2022 Other chronic allergic conjunctivitis 04/18/2008 11/04/2022 Gacgc-Zymwfpnwl-Htipf syndrome 12/24/2005 12/16/2023 Overview: - Luque Parkinson [...] -Declined genetic counseling -Per cardiology 12/04/22: "The Mkqxz-Xxcuhlrrw-Dpqam he has been cured. She has no [...] as of this encounter (statuses as of 05/05/2024) Immunizations Name Administration Dates Next Due DTWP [...] money to get more. Never true 04/14/2024 [place] Depression Scale Answer Date Recorded [place] Depression Scale Total 0 12/12/2023 The thought [...] Sign Reading Time Taken Comments Blood Pressure 106/66 05/05/2024 10:05 AM EDT Pulse 86 05/05/2024 10:05 AM EDT Temperature 36.8 C (98.3 F) 05/05/2024 10:05 AM E DT Respiratory Rate 16 05/05/2024 10:05 AM EDT Oxygen Saturation 96% 05/05/2024 10:05 AM EDT Inhaled Oxygen Concentration - - Weight - - Height - - Body Mass Index - - documented in this encounter Nursing Notes * Pamela Rothman LPN - 05/05/2024 10:05 AM EDT Patient arrived Chair 6 for IV therapy Venofer 12/03. Vital signs are stable. IV access successful atthe left antecubital vein. IV line flushed with ease; IV fluids connected and infusing. Call walter within reach. Patient completed IV therapy Venofer 11:29am. IV access was disconnected; site was cleaned and bandaged. Patient will return in 1 week on a Friday morning. Patient discharged in stable condition. documented in this encounter Plan of Treatment Upcoming Encounters Date Type Department Care Team (Late st Contact Info) Description 05/13/2024 1:00 PM EDT Pharmacy Pharmacy, [place] [address] [place] [address] [facility] [address] [place] [address] 05/14/2024 8:45 AM EDT Hem/Onc Treatment Hematology/Oncology Treatment, [place] [address] [facility] [place] [phone] Cyndy, Chair 2 Hem Onc [address] [place] [address] 05/21/2024 8:30 AM EDT Hem/Onc Treatment Hematology/Oncology Treatment, [place] [address] [facility], [place] [phone] Cyndy, Chair 11 Hem Onc [facility] 200 [facility] [place], [place] [address] Health Maintenance Due Date Last Done Comments [...] ONCE PRN Other, Hypersensitivity Reaction, Starting on Fri05/05/24 at 0956, Until Nilda 05/06/24 at 0955, For 24 hours EPINEPHrine 1 MG/ML inj 0.3 mg 0.3 mg, Intramuscular, ONCE PRN Other, Hypersensitivity Reaction or Anaphylaxis, Starting on Fri05/05/24 at 0956, Until Nilda 05/06/24 at 0955, For 24 hours hEParin 100 UNIT/ML Lock Flush inj 500 Units 500 Units (5 mL), IV Lock, PRN Other, IV Flush, Starting on Fri05/05/24 at 0956, Until Nilda 05/06/24 at 0955, For 24 hours, Do not flush if lock, PICC, or central line not in place; IV infusing or unable to flush. Hydrocortisone Sod Suc (PF) (Solu-Cortef) inj 100 mg 100 mg, IV Push, ONCE PRN Other, Hypersensitivity Reaction, Starting on Fri05/05/24 at 0956, Until Nilda 05/06/24 at 0955, For 24 hours NSS infusion 500 mL, Intravenous, at 50 mL/hr, CONTINUOUS, Starting on Fri05/05/24 at 1100, Until Fri05/05/24 at 2059 Start Infusion 05/05/2024 9:57 AM EDT 500 mL 50 mL/hr oxygen GAS Inhalation, OXYGEN, First dose on Fri05/05/24 at 1030, Until Discontinued, Device/Managed by: Low Flow Device, [...] Push, PRN Other, IV Flush, Starting on Fri05/05/24 at 0956, Until Nilda 05/06/24 at 0955, For 24 hours, Do not flush if lock, PICC, or central line not in place; IV infusing or unable to flush. Inactive Administered Medications - up to 3 most recent administrations Medication Order MAR Action Action Date Dose Rate Site Iron Sucrose (Venofer) 300 mg in NSS 250 mL ivpb 300 mg, IV Piggyback, ONCE, 1 dose, On Fri05/05/24 at 1130, Administer over 90 Minutes Start Infusion 05/05/2024 9:59 AM EDT 300 mg 180 mL/hr documented in this encounter Care Teams Charge Weigher Relationship Specialty Start Date End Date José Bearden MD [address] [place], [place] [id number] PCP - General 03/27/04 documented as of this encounter
--- OUTSIDE RECORDS SUMMARY | 2024-06-12 11:40 | External Medical Summary | Summary of Care ---
Author Name Unknown Organization [facility] Address [address] [place] [address] Phone [phone] Care Team Providers Care Healthcare Market Consultant Name Role Phone José Bearden MD Primary Care Provider +1- [phone] Encounter Details Date Type Department Care Team (Late st Contact Info) Description 04/29/2024 Orders Only Gynecology/Obstetrics [facility] [address] [place] [address] Ruthy Trevino CRNP [address] [place] [address] Iron deficiency anemia, unspecified iron deficiency anemia type* Allergies Active Allergy Reactions Criticality Noted Date Comments Lactose Intolerance 12/06/2005 documented as of this encounter (statuses as of 04/29/2024) Medications Medication Sig Dispensed Refills Start Date End Date Status Fluticasone Propionate 50 MCG/ACT Nasal Suspension Administer 1 [place] into nostril in the morning. Active Ketotifen [...] and it was ordered today. 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 Asymptomatic. Saw cardiology 12/04/22 who states ""The Udqor-Goumfentc-Xeaet he has been cured. She has no [...] repair at 4 months of age at [facility] [Doing well now, aged 9 years] [...] 11/04/2022 Other chronic allergic conjunctivitis 04/18/2008 11/04/2022 Hjyfk-Dpzvulpvj-Jmdrh syndrome 12/24/2005 12/16/2023 Overview: - Luque Parkinson [...] -Declined genetic counseling -Per cardiology 12/04/22: "The Izgrn-Cwvcfoeds-Cqokp he has been cured. She has no [...] money to get more. Never true 04/14/2024 [place] Depression Scale Answer Date Recorded [place] Depression Scale Total 0 12/12/2023 The thought [...] Description 04/29/2024 4:00 PM EDT Pharmacy Pharmacy, [place] [address] Clinic, Anemia [address] [place] [address] Antepartum anemia complicating * 05/13/2024 1:00 PM EDT Pharmacy Pharmacy, [place] [address] [place] [address] Clinic, Anemia [address] [place] [address] Health Maintenance Due Date Last Done Comments [...] Antepartum anemia complicating - Primary Anemia, antepartum Iron deficiency anemia, unspecified iron deficiency anemia type- Primary documented in this encounter Care Teams Healthcare Market Consultant Relationship Specialty Start Date End Date José Bearden MD [address] [place] [address] PCP - General 03/27/04 documented as of this encounter
--- OUTSIDE RECORDS SUMMARY | 2024-06-12 11:40 | External Medical Summary | Summary of Care ---
Author Name Unknown Organization [facility] Address [address] [place] [address] Phone [phone] Care Team Providers Care Brewery Technician Name Role Phone José Bearden MD Primary Care Provider +1- [phone] Encounter Details Date Type Department Care Team (Late st Contact Info) Description 04/20/2024 Documentation Patient Blood Management, [facility] [address] [place] [address] Kodi Suarez RN Allergies Active Allergy Reactions Criticality Noted Date Comments Lactose Intolerance 12/06/2005 documented as of this encounter (statuses as of 04/30/2024) Medications Medication Sig Dispensed Refills Start Date End Date Status Fluticasone Propionate 50 MCG/ACT Nasal Suspension Administer 1 [place] into nostril in the morning. Active Ketotifen [...] as of this encounter (statuses as of 04/30/2024) Active Problems Problem Noted Date Diagnosed Date [...] and it was ordered today. 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 Asymptomatic. Saw cardiology 12/04/22 who states ""The Qxozq-Uaihdkykm-Idnwr he has been cured. She has no [...] as of this encounter (statuses as of 04/30/2024) Resolved Problems Problem Noted Date Diagnosed Date [...] 11/04/2022 Other chronic allergic conjunctivitis 04/18/2008 11/04/2022 Wrvpu-Kcyyqsabr-Tmlwo syndrome 12/24/2005 12/16/2023 Overview: - Luque Parkinson [...] -Declined genetic counseling -Per cardiology 12/04/22: "The Bfnel-Zwzjmpfnc-Ktymw he has been cured. She has no [...] as of this encounter (statuses as of 04/30/2024) Immunizations Name Administration Dates Next Due DTWP [...] money to get more. Never true 04/14/2024 [place] Depression Scale Answer Date Recorded [place] Depression Scale Total 0 12/12/2023 The thought [...] as of this encounter Progress Notes * Kodi Suarez, JULIA - 04/20/2024 6:01 PM EDT REFERRAL - Patient Blood Management Name: Lyndsey Wesley REQUESTING SERVICE: [facility] OB REASON FOR REFERRAL: new evaluation outpatient, Anemia in Anemia Evaluation: Latest Reference Range & Units 04/14/24 09:24 WBC 4.00 - 10.80 K/uL 6.07 RBC 3.85 - 5.15 M/uL 2.91 HGB 12.0 - 15.3 g/dL 9.3 (L) HCT 36.0 - 45.2 % 29.1 (L) MCV 81.5 - 97.5 fL 100.0 MCH 27.0 - 34.0 pg 32.0 MCHC 32.0 - 36.0 g/dL 32.0 RDW 11.5 - 15.5 % 13.6 PLT 140 - 400 K/uL 215 MPV 6.6 - 11.1 fL 9.6 Iron 33 - 151 ug/dL 76 Iron Binding Capacity 250 - 425 ug/dL 423 Transferrin Saturation Percent 15 - 55 % 18 Ferritin 13 - 150 ng/mL 22 Vitamin B12 232 - 1,245 pg/mL 205 (L) Folic Acid >4.5 ng/mL 12.2 Immature Reticuloctye Fraction 2.5 - 20.6 % 24.5 (H) Reticulocyte Hemoglobin 29.7 - 37.4 pg 33.9 Absolute Reticulocyte 31.3 - 100.1 K/uL 63.4 Reticulocyte Percent 0.80 - 1.90 % 2.18 (H) (L): Data is abnormally low (H): Data is abnormally high Current Patient Medications: Medications that may impair hemostasis: None Medications that may impair iron absorption: None Patient Refused Blood Transfusion? (e.g. Sabianist): no Possible Contributing Factors: iron deficiency Treatment Recommendations: Recommend Venofer IV per OB MTM Protocol Pt. Agreeable to IV iron at [facility] Follow-up Recommendations: Follow up with PCP for further assessment/management of anemia post discharge. 04/16 - called pt. Left VM 04/23 - called pt. Left VM 04/30 - called pt. Agreeable at [facility] Thank you for allowing Blood Management to participate in the care of this patient. documented in this encounter Plan of Treatment Upcoming Encounters Date Type Department Care Team (Late st Contact Info) Description 05/13/2024 1:00 PM EDT Pharmacy Pharmacy, [address] [address] Clinic, [place] [id number] Health Maintenance Due Date Last Done Comments GARDASIL-HPV IMMUNIZATION SERIES (3 - 3-dose series) 12/01/2009 08/01/2009, 05/31/2009 COVID-19 Vaccine (2022- season) 2023 DTaP,Tdap,and Td Vaccines (8 - Td or Tdap) 08/20/2023 08/20/2013, 12/24/2005, 06/19/1995, Additional history exists Influenza Vaccine (FLU shot) (Season Ended) 2024 Depression Screening 04/14/2025 04/14/2024 Pap Smear 12/12/2026 12/12/2023, 02/, 12/23/2016, Additional history exists Cervical Cancer Screening [...] filedocumented as of this encounter Care Teams Brewery Technician Relationship Specialty Start Date End Date José Bearden MD [address] [place] [address] PCP - General 03/27/04 documented as of this encounter
--- OUTSIDE RECORDS SUMMARY | 2024-06-12 11:40 | External Medical Summary | Summary of Care ---
Author Name Unknown Organization [facility] Address [address] [place] [address] Phone [phone] Care Team Providers Care Systems Security Analyst Name Role Phone José Bearden MD Primary Care Provider +1- [phone] Encounter Details Date Type Department Care Team (Late st Contact Info) Description 04/29/2024 Telephone Gynecology/Obstetrics [facility] [address] [place] [address] Ruthy Trevino CRNP [address] [place] [address] Allergies Active Allergy Reactions Criticality Noted Date Comments Lactose Intolerance 12/06/2005 documented as of this encounter (statuses as of 04/29/2024) Medications Medication Sig Dispensed Refills Start Date End Date Status Fluticasone Propionate 50 MCG/ACT Nasal Suspension Administer 1 [place] into nostril in the morning. Active Ketotifen [...] and it was ordered today. 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 Asymptomatic. Saw cardiology 12/04/22 who states ""The Xybhe-Aechdlgkc-Nvwmm he has been cured. 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 She has no [...] money to get more. Never true 04/14/2024 [place] Depression Scale Answer Date Recorded [place] Depression Scale Total 0 12/12/2023 The thought [...] encounter Miscellaneous Notes * Telephone Encounter - Amy White RN - 04/29/2024 10:07 AM EDT Someone had called into office from [facility] asking about prior auth for iron infusions. He was told our office does not handle the infusions. documented in this encounter Plan of Treatment Upcoming Encounters Date Type Department Care Team (Late st Contact Info) Description 04/29/2024 4:00 PM EDT Pharmacy Pharmacy, [address] [address] Clinic, [address] [address] Health Maintenance Due Date Last Done Comments [...] filedocumented as of this encounter Care Teams Systems Security Analyst Relationship Specialty Start Date End Date José Bearden MD [address] [place] [address] PCP - General 03/27/04 documented as of this encounter
--- OUTSIDE RECORDS SUMMARY | 2024-06-12 11:40 | External Medical Summary | Summary of Care ---
Author Name Unknown Organization [facility] Address [address] [place] [address] Phone [phone] Care Team Providers Care Veneer Jointer Helper Name Role Phone José Beraden MD Primary Care Provider +1- [phone] Reason for Visit * Reason Comments Return Visit Encounter Details Date Type Department Care Team (Late st Contact Info) Description 04/28/2024 10:45 AM EDT Office Visit Gynecology/Obstetric s [facility] [address] [place] [address] Ruthy Trevino CRNP [address] [place] [address] Normal in third trimester*; Antepartum anemia complicating ; Short interval between pregnancies complicating , antepartum; Family history of congenital heart defect; Polyp of cervix; History of Wvelt-Alktynjbv-Xhxnc (WPW) syndrome; Echogenic intracardiac focus of fetus on ultrasound Allergies Active Allergy Reactions Criticality Noted Date Comments Lactose Intolerance 12/06/2005 documented as of this encounter (statuses as of 04/28/2024) Medications Medication Sig Dispensed Refills Start Date End Date Status Fluticasone Propionate 50 MCG/ACT Nasal Suspension Administer 1 [place] into nostril in the morning. Active Ketotifen [...] and it was ordered today. 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 Asymptomatic. Saw cardiology 12/04/22 who states ""The Dxhme-Kwtsrvicp-Tceeg he has been cured. She has no [...] at [address] [facility] [Doing well now, aged 9 years] [...] 11/04/2022 Other chronic allergic conjunctivitis 04/18/2008 11/04/2022 Cyhfq-Hkaefdyuz-Mucul syndrome 12/24/2005 12/16/2023 Overview: - Luque Parkinson [...] -Declined genetic counseling -Per cardiology 12/04/22: "The Qsnto-Xhjwifxyd-Zvkjm he has been cured. She has no [...] money to get more. Never true 04/14/2024 [place] Depression Scale Answer Date Recorded [place] Depression Scale Total 0 12/12/2023 The thought [...] Sign Reading Time Taken Comments Blood Pressure 102/60 04/28/2024 10:39 AM EDT Pulse - - Temperature - - Respiratory Rate - - Oxygen Saturation - - Inhaled Oxygen Concentration - - Weight 73 kg (161 lb) 04/28/2024 10:39 AM EDT Height 165.1 cm (5' 5") 04/28/2024 10:39 AM EDT Body Mass Index 26.79 04/28/2024 10:39 AM EDT documented in this encounter Progress Notes * Ruthy Trevino CRNP - 04/28/2024 10:52 AM EDT 29w5d Still awaiting contact from blood management regarding IV iron. Number given to pt for [facility], to notify this office if she doesn't hear from them. No other concerns. Baby is very active. Denies contractions, bleeding, LOF. BRIT Phillips * Buffy Falcon LPN - 04/28/2024 10:39 AM EDT 29w5d documented in this encounter Plan of Treatment Upcoming Encounters Date Type Department Care Team (Late st Contact Info) Description 04/29/2024 4:00 PM EDT Pharmacy Pharmacy, [place] [address] [place] [address] Clinic, [facility] [address] [place] [address] Health Maintenance Due Date Last Done Comments [...] cervix Mucous polyp of cervix History of Rbjgf-Iiexirvct-Meahb (WPW) syndrome Echogenic intracardiac focus of fetus on ultrasound Abnormal findings on screening documented in this encounter Care Teams Veneer Jointer Helper Relationship Specialty Start Date End Date José Bearden MD [address] [place] [address] PCP - General 03/27/04 documented as of this encounter
--- OUTSIDE RECORDS SUMMARY | 2024-06-12 11:40 | External Medical Summary | Summary of Care ---
Author Name Unknown Organization [facility] Address [address] [place] [address] Phone [phone] Care Team Providers Care Staff Nurse Anesthetist Name Role Phone José Bearden MD Primary Care Provider +1- [phone] Reason for Visit * Reason Onset Date Comments Appointment 04/29/2024 Tho Encounter Details Date Type Department Care Team (Late st Contact Info) Description 04/29/2024 Telephone Hematology/Oncology [facility] [place] [address] [facility] [place] [address] Ruthy Trevino CRNP [address] [place] [address] Appointment (Tho) Allergies Active Allergy Reactions Criticality Noted Date Comments Lactose Intolerance 12/06/2005 documented as of this encounter (statuses as of 05/03/2024) Medications Medication Sig Dispensed Refills Start Date End Date Status Fluticasone Propionate 50 MCG/ACT Nasal Suspension Administer 1 [place] into nostril in the morning. Active Ketotifen [...] and it was ordered today. 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 Asymptomatic. Saw cardiology 12/04/22 who states ""The Zvmwm-Cidqqznny-Mwzpl he has been cured. She has no [...] repair at 4 months of age at [facility] [Doing well now, aged 9 years] [...] 11/04/2022 Other chronic allergic conjunctivitis 04/18/2008 11/04/2022 Ygfaa-Hwwcqnujk-Fqomr syndrome 12/24/2005 12/16/2023 Overview: - Luque Parkinson [...] -Declined genetic counseling -Per cardiology 12/04/22: "The Vtasd-Zsdnjagyo-Oknut he has been cured. She has no [...] money to get more. Never true 04/14/2024 [place] Depression Scale Answer Date Recorded [place] Depression Scale Total 0 12/12/2023 The thought [...] encounter Miscellaneous Notes * Telephone Encounter - Julisa Roblero OSA - 05/03/2024 8:46 AM EDT Patient returning call to schedule infusion appointment. Patient can be contacted at [phone]. * Telephone Encounter - Alyssa Fabian OSA - 05/03/2024 8:04 AM EDT Lmom * Telephone Encounter - Latisha Pal RN - 05/03/2024 7:51 AM EDT [place] is signed. Scheduling: please call patient to [...] Description 05/13/2024 1:00 PM EDT Pharmacy Pharmacy, [place] [address] [place] [address] Clinic, [place] [address] [place] [address] Health Maintenance Due Date Last Done Comments [...] filedocumented as of this encounter Care Teams Staff Nurse Anesthetist Relationship Specialty Start Date End Date José Bearden MD [address] [place] [address] PCP - General 03/27/04 documented as of this encounter
--- OUTSIDE RECORDS SUMMARY | 2024-06-12 11:40 | External Medical Summary | Summary of Care ---
Author Name Unknown Organization [facility] Address [address] [place] [address] Phone [phone] Care Team Providers Care In Classroom Tutor Name Role Phone José Bearden MD Primary Care Provider +1- [phone] Reason for Visit * Reason Onset Date Comments Appointment 04/29/2024 Tho Encounter Details Date Type Department Care Team (Late st Contact Info) Description 04/29/2024 Telephone Hematology/Oncology [facility] [place] [address] [facility] [place] [address] Ruthy Trevino CRNP [address] [place] [address] Appointment (Tho) Allergies Active Allergy Reactions Criticality Noted Date Comments Lactose Intolerance 12/06/2005 documented as of this encounter (statuses as of 04/30/2024) Medications Medication Sig Dispensed Refills Start Date End Date Status Fluticasone Propionate 50 MCG/ACT Nasal Suspension Administer 1 [place] into nostril in the morning. Active Ketotifen [...] and it was ordered today. 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 Asymptomatic. Saw cardiology 12/04/22 who states ""The Exmxg-Sgvirzdtg-Qqjao he has been cured. She has no [...] repair at 4 months of age at [facility] [Doing well now, aged 9 [...] 11/04/2022 Other chronic allergic conjunctivitis 04/18/2008 11/04/2022 Lgpcx-Wlemuxnwv-Hmxsj syndrome 12/24/2005 12/16/2023 Overview: - Luque Parkinson [...] -Declined genetic counseling -Per cardiology 12/04/22: "The Madvn-Srgznylou-Jraxg he has been cured. She has no [...] money to get more. Never true 04/14/2024 [place] Depression Scale Answer Date Recorded [place] Depression Scale Total 0 12/12/2023 The thought [...] Description 05/13/2024 1:00 PM EDT Pharmacy Pharmacy, [address] [address] [facility], [address] [address] Health Maintenance Due Date Last Done Comments [...] filedocumented as of this encounter Care Teams In Classroom Tutor Relationship Specialty Start Date End Date José Bearden MD [address] [place] [address] PCP - General 03/27/04 documented as of this encounter
--- OUTSIDE RECORDS SUMMARY | 2024-06-12 11:40 | External Medical Summary | Summary of Care ---
Author Name Unknown Organization [facility] Address [address] [place] [address] Phone [phone] Care Team Providers Care Print Buyer Name Role Phone José Bearden MD Primary Care Provider +1- [phone] Encounter Details Date Type Department Care Team (Late st Contact Info) Description 04/29/2024 Orders Only Hematology/Oncology [facility] [place] [address] [place] [address] Ruthy Trevino CRNP [address] [place] [address] Allergies Active Allergy Reactions Criticality Noted Date [...] and it was ordered today. 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 Asymptomatic. Saw cardiology 12/04/22 who states ""The Irwwz-Wolwunkpg-Xevft he has been cured. She has no [...] 4 months of age at [facility] [Doing well now, aged 9 years] -Declines [...] 11/04/2022 Other chronic allergic conjunctivitis 04/18/2008 11/04/2022 Axues-Nvpzvrypm-Hkhhk syndrome 12/24/2005 12/16/2023 Overview: - Luque Parkinson [...] -Declined genetic counseling -Per cardiology 12/04/22: "The Oluod-Jmvgjachm-Jahtv he has been cured. She has no [...] money to get more. Never true 04/14/2024 [place] Depression Scale Answer Date Recorded [place] Depression Scale Total 0 12/12/2023 The thought [...] 04/29/2024 4:00 PM EDT Pharmacy Pharmacy, [place] [address] Clinic, [place] [address] [place] [address] Antepartum anemia complicating * 05/13/2024 1:00 PM EDT Pharmacy Pharmacy, [place] [address] [place] [address] Clinic, [place] [address] [place] [address] Health Maintenance Due Date Last Done Comments [...] filedocumented as of this encounter Care Teams Print Buyer Relationship Specialty Start Date End Date José Baerden MD [address] [place] [address] PCP - General 03/27/04 documented as of this encounter
--- OUTSIDE RECORDS SUMMARY | 2024-06-12 11:40 | External Medical Summary | Summary of Care ---
Author Name Unknown Organization [facility] Address [address] [place] [address] Phone [phone] Care Team Providers Care Claim Agent Name Role Phone José Bearden MD Primary Care Provider +1- [phone] Encounter Details Date Type Department Care Team (Late st Contact Info) Description 04/30/2024 Orders Only Pharmacy, [place] [address] [place] [address] [facility] [address] [place] [address] Allergies Active Allergy Reactions Criticality Noted Date Comments Lactose Intolerance 12/06/2005 documented as of this encounter (statuses as of 04/30/2024) Medications Medication Sig Dispensed Refills Start Date End Date Status Fluticasone Propionate 50 MCG/ACT Nasal Suspension Administer 1 [place] into nostril in the morning. Active Ketotifen [...] and it was ordered today. 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 Asymptomatic. Saw cardiology 12/04/22 who states ""The Ltmwl-Vwzylztdp-Uvksi he has been cured. She has no [...] repair at 4 months of age at [facility] [Doing well now, aged 9 years] [...] 11/04/2022 Other chronic allergic conjunctivitis 04/18/2008 11/04/2022 Cxtfi-Wrugwoykz-Djzjp syndrome 12/24/2005 12/16/2023 Overview: - Luque Parkinson [...] -Declined genetic counseling -Per cardiology 12/04/22: "The Hzsco-Ixhvrccyt-Wbxjn he has been cured. She has no [...] money to get more. Never true 04/14/2024 [place] Depression Scale Answer Date Recorded [place] Depression Scale Total 0 12/12/2023 The thought [...] Description 05/13/2024 1:00 PM EDT Pharmacy Pharmacy, [place] [address] [place] [address] Clinic, [place] [address] [place] [address] Health Maintenance Due Date Last Done Comments [...] filedocumented as of this encounter Care Teams Claim Agent Relationship Specialty Start Date End Date José Bearden MD [address] [place] [address] PCP - General 03/27/04 documented as of this encounter
--- OUTSIDE RECORDS SUMMARY | 2024-06-12 11:40 | External Medical Summary | Summary of Care ---
Author Name Unknown Organization [facility] Address [address] [place] [address] Phone [phone] Care Team Providers Care Processing Tech Name Role Phone José Bearden MD Primary Care Provider +1- [phone] Reason for Visit * Reason Onset Date Comments Appointment 04/29/2024 Tho Encounter Details Date Type Department Care Team (Late st Contact Info) Description 04/29/2024 Telephone Hematology/Oncology Enzo Naylor [place] [address] [facility] [place] [address] Ruthy Trevino CRNP [address] [place] [address] Appointment (Tho) Allergies Active Allergy Reactions Criticality Noted Date Comments Lactose Intolerance 12/06/2005 documented as of this encounter (statuses as of 05/03/2024) Medications Medication Sig Dispensed Refills Start Date End Date Status Fluticasone Propionate 50 MCG/ACT Nasal Suspension Administer 1 [place] into nostril in the morning. Active Ketotifen [...] and it was ordered today. 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 Asymptomatic. Saw cardiology 12/04/22 who states ""The Nqvqx-Zgjqjldbf-Rlems he has been cured. She has no [...] at 4 months of age at [facility] [Doing well now, aged 9 [...] 11/04/2022 Other chronic allergic conjunctivitis 04/18/2008 11/04/2022 Cfxst-Txrxixjjg-Ewyvr syndrome 12/24/2005 12/16/2023 Overview: - Luque Parkinson [...] -Declined genetic counseling -Per cardiology 12/04/22: "The Tomlf-Ojuxhrhab-Ezwhd he has been cured. She has no [...] money to get more. Never true 04/14/2024 [place] Depression Scale Answer Date Recorded [place] Depression Scale Total 0 12/12/2023 The thought [...] Miscellaneous Notes * Telephone Encounter - Julisa Cardoso OSA - 05/03/2024 10:04 AM EDT Patient returned call to schedule iron infusions. Please contact Lyndsey at [phone]. Thank you. * Telephone Encounter - Alyssa Ordonez OSA - 05/03/2024 9:17 AM EDT Left message * Telephone Encounter - Julisa Roblero OSA - 05/03/2024 8:46 AM EDT Patient returning call to schedule infusion appointment. Patient can be contacted at [phone]. * Telephone Encounter - Alyssa Fabian OSA - 05/03/2024 8:04 AM EDT Lmom * Telephone Encounter - Latisha Pal RN - 05/03/2024 7:51 AM EDT [place] is signed. Scheduling: please call patient to schedule 2 hour appt "venofer 12/03" (Ruthy Trevino). Thanks! Patient will need venofer once a week x3. * Telephone Encounter - Dario Kasper, RN - 04/29/2024 1:38 PM EDT Orders received, beacon plan built and routed. Can schedule once signed. documented in this encounter Plan of Treatment Upcoming Encounters Date Type Department Care Team (Late st Contact Info) Description 05/13/2024 1:00 PM EDT Pharmacy Pharmacy, [address] [id number] Clinic, [address] [id number] Health Maintenance Due Date Last Done Comments [...] filedocumented as of this encounter Care Teams Processing Tech Relationship Specialty Start Date End Date José Bearden MD [address] [facility] [place] [address] PCP - General 03/27/04 documented as of this encounter
--- OUTSIDE RECORDS SUMMARY | 2024-06-12 11:41 | External Medical Summary ---
Author Name Unknown Address Unknown Organization K01:LABORATORY [facility] - [address] [place] [address] Laboratory Report Ordering Provider Test Date Status MEGAN JAIMES 04/14/2024 09:24:58 Final Observation Date Value Abnormality Reference (Units ) Status Creatinine 04/14/2024 09:24:58 0.6 0.5-1.0 (mg/dL) Final Glomerular filtration rate/1.73 sq M.predicted [Volume Rate/Area] in Serum, Plasma or Blood by Creatinine-based formula (CKD-EPI) 04/14/2024 09:24:58 >90 >=60 (mL/min) Final eGFR is calculated based on the CKD-EPI 2020 equation Performing Location [facility]ORY [facility] - [address] [place] [address]
--- OUTSIDE RECORDS SUMMARY | 2024-06-12 11:41 | External Medical Summary | Summary of Care ---
Author Name Unknown Organization [facility] Address [address] [place] [address] Phone [phone] Care Team Providers Care Insulation Blanket Maker Name Role Phone José Bearden MD Primary Care Provider +1- [phone] Reason for Visit * Reason Comments Outpatient Testing Encounter Details Date Type Department Care Team (Late st Contact Info) Description 04/14/2024 8:30 AM EDT Laboratory Laboratory, [facility] [address] [facility] [place] [phone] [place] rashid [facility] [address] Normal in second trimester Allergies Active Allergy Reactions Criticality Noted Date Comments Lactose Intolerance 12/06/2005 documented as of this encounter (statuses as of 04/14/2024) Medications Medication Sig Dispensed Refills Start Date End Date Status Fluticasone Propionate 50 MCG/ACT Nasal Suspension Administer 1 [place] into nostril in the morning. 0 Active Ketotifen Fumarate 0.025 % Ophthalmic Solution 1 Drop in the morning and 1 Drop before bedtime. 0 Active Vitamin 27-0.8 MG Oral Tablet Take by mouth . 0 Active B-12 50 MCG Oral Tablet Take by mouth. 0 Active documented as of this encounter (statuses as of 04/14/2024) Active Problems Problem Noted Date Diagnosed Date [...] and it was ordered today. 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 Asymptomatic. Saw cardiology 12/04/22 who states ""The Ramfl-Eklzepdwb-Gzbxt he has been cured. She has no [...] 12/12/2023 Overview: Noted on exam at [facility] Estimated Date of Delivery Comme nts Yes 07/09/2024 Based on Ultraso und documented as of this encounter (statuses as of 04/14/2024) Resolved Problems Problem Noted Date Diagnosed Date Resolved Date GBS (group B Streptococcus c april), +RV culture, currently 03/20/2023 04/03/2023 Antepartum anemia complicating 01/23/2023 12/12/2023 Overview: Hgb 9.1 at 28w. Blood management referral. Maternal asthma complicating 11/04/2022 04/03/2023 Last Assessment [...] age at [facility] [Doing well now, aged 9 years] -Declines [...] 11/04/2022 Other chronic allergic conjunctivitis 04/18/2008 11/04/2022 Nbusg-Gtydkhrhl-Knevh syndrome 12/24/2005 12/16/2023 Overview: - Luque Parkinson [...] -Declined genetic counseling -Per cardiology 12/04/22: "The Zgwul-Btztdycuy-Gmgbs he has been cured. She has no [...] as of this encounter (statuses as of 04/14/2024) Immunizations Name Administration Dates Next Due DTWP [...] money to get more. Never true 04/14/2024 [place] Depression Scale Answer Date Recorded [place] Depression Scale Total 0 12/12/2023 The thought [...] as of this encounter Plan of Treatment Pending Results Name Type Priority Associated Diagnoses Date /Time 50-G GESTATIONAL GLUCOSE, 1 HOUR Lab Routine Normal in second trimester 04/14/2024 9:24 AM EDT CBC WITH WBC DIFFERENTIAL AND ANEMIA REFLEX WORKUP Lab Routine Normal in second trimester 04/14/2024 9:24 AM EDT SYPHILIS ANTIBODY SCREEN WITH REFLEX TO RPR Lab Routine Normal in second trimester 04/14/2024 9:24 AM EDT ANEMIA CBC Lab Routine Normal in second trimester 04/14/2024 9:24 AM EDT DIFFERENTIAL, AUTOMATED Lab Routine Normal in second trimester 04/14/2024 9:24 AM EDT ANEMIA REFLEX CHEMISTRY HOLD Lab Routine Normal in second trimester 04/14/2024 9:24 AM EDT SYPHILIS ANTIBODY SCREEN Lab Routine Normal in second trimester 04/14/2024 9:24 AM EDT Health Maintenance Due Date Last [...] HPV/Co-Test 12/12/2028 12/12/2023 Hepatitis B Completed 04/14/2002, 080 01/2001, 05/19/2001 MENINGOCOCCAL (MENACTRA/MENVEO) Aged Out No longer eligible based on patient's age to complete this topic Pneumococcal Vaccine: Pediatrics (0 to 5 Years) and At-Risk Patients (6 to 64 Years) Aged Out No longer eligible based on patient's age to complete this topic documented as of this encounter Medical Devices Not on filedocumented as of this encounter Visit Diagnoses Diagnosis Normal in second trimester documented in this encounter Care Teams Insulation Blanket Maker Relationship Specialty Start Date End Date José Bearden MD [address] [place] [address] PCP - General 03/27/04 documented as of this encounter
--- OUTSIDE RECORDS SUMMARY | 2024-06-12 11:41 | External Medical Summary ---
Author Name Unknown Address Unknown Organization K01:LABORATORY [facility] - [address] [place] [address] Laboratory Report Ordering Provider Test Date Status MEGAN JAIMES 04/14/2024 09:24:58 Final Observation Date Value Abnormality Reference (Units ) Status Treponema pallidum Ab [Presence] in Serum by Immunoassay 04/14/2024 09:24:58 Nonreactive Nonreactive Final No serologic evidence of syp hilis. No additional testing clinicially indicated at this time. Consider repeat testing in 2-4 weeks if acute or primary syphilis is suspected. Performing Location LABORATORY [facility] - [address] [place] [address]
--- OUTSIDE RECORDS SUMMARY | 2024-06-12 11:41 | External Medical Summary | Summary of Care ---
Author Name Unknown Organization [facility] Address [address] [place] [address] Phone [phone] Care Team Providers Care Ditching Machine Operator Name Role Phone José Bearden MD Primary Care Provider +1- [phone] Reason for Visit * Reason Comments Return Visit Encounter Details Date Type Department Care Team (Late st Contact Info) Description 02/06/2024 10:45 AM EST Office Visit Gynecology/Obstetric s [facility] [address] [place] [address] Ruthy Trevino CRNP [address] [place] [address] Normal in second trimester*; Short interval between pregnancies complicating , antepartum; Family history of congenital heart defect; Polyp of cervix; History of Ncuif-Jxdoclubd-Qilgc (WPW) syndrome Allergies Active Allergy Reactions Criticality Noted Date Comments Lactose Intolerance 12/06/2005 documented as of this encounter (statuses as of 02/06/2024) Medications Medication Sig Dispensed Refills Start Date End Date Status Fluticasone Propionate 50 MCG/ACT Nasal Suspension Administer 1 [place] into nostril in the morning. 0 Active Ketotifen Fumarate 0.025 % Ophthalmic Solution 1 Drop in the morning and 1 Drop before bedtime. 0 Active Vitamin 27-0.8 MG Oral Tablet Take by mouth . 0 Active B-12 50 MCG Oral Tablet Take by mouth. 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 Asymptomatic. Saw cardiology 12/04/22 who states ""The Xcfmz-Oqgtyiyrj-Laiaq he has been cured. She has no [...] open heart surgery. Last Assessment & Plan: Family history of congenital heart defect: - Reviewed etiologies of heart defects, including a sporadic event versus a result of a genetic mutation leading to a chromosome problem or a genetic syndrome. - Discussed that the highest risk for a to be affected by a heart defect is if either parent has a personal history of a heart defect. As the affected relative becomes more distantly related to the future child/, the risk significantly decreases. - Counseled the patient on the 3-20% risk of her future children being diagnosed with a heart defect based on family history (first degree relative). - Reviewed screening via a detail anatomy ultrasound between 18-20 weeks gestation. -Recommend echo around 22 weeks. 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 She has no [...] as of this encounter (statuses as of 02/06/2024) Immunizations Name Administration Dates Next Due DTWP [...] = 0.6 oz pur e alcohol) socially Hunger Vital Sign Answer Date Recorded Within the past 12 months, y ou worried that your food would run out before you got the money to buy more. Never true 01/22/20 23 Within the past 12 months, t he food you bought just didn't last and you didn't have money to get more. Never true 01/22/2023 [place] Depression Scale Answer Date Recorded [place] Depression Scale Total 0 12/12/2023 The thought [...] Sign Reading Time Taken Comments Blood Pressure 98/58 02/06/2024 10:45 AM EST Pulse - - Temperature - - Respiratory Rate - - Oxygen Saturation - - Inhaled Oxygen Concentration - - Weight 68 kg (150 lb) 02/06/2024 10:45 AM EST Height - - Body Mass Index 24.96 12/12/2023 9:02 AM EST documented in this encounter Progress Notes * Ruthy Trevino CRNP - 02/06/2024 10:53 AM EST 18w0d Complaints: none Feeling well. Feeling some FM. No contractions, bleeding, or LOF. Anatomy u/s with MFM. BRIT Phillips * Carly Araiza LPN - 02/06/2024 10:45 AM EST 18w0d Denies vaginal bleeding/rom + movement Anatomy with MFM No new concerns documented in this encounter Plan of Treatment Upcoming Encounters Date Type Department Care Team (Late st Contact Info) Description 02/16/2024 10:30 AM EDT Office Visit Student Nurse Obstetrics Maternal Medicine, [place] [address] [place] [address] Taurus Acevedo DO [address] [place] [address] 02/16/2024 10:30 AM EDT [facility] [address] [place] [address] 03/03/2024 10:30 AM EDT [facility] [address] [facility] [place] [address] Ruthy Trevino CRNP [address] [place] [address] Health Maintenance Due Date Last Done Comments Pneumococcal Vaccine: Pediatrics (0 to 5 Years) and At-Risk Patients (6 to 64 Years) (1 of 2 - PCV) 1996 GARDASIL-HPV IMMUNIZATION SERIES (3 - 3-dose series) 12/01/2009 08/01/2009, 05/31/2009 Depression Screening 09/13/2018 09/13/2017 COVID-19 Vaccine (1 - 2022-24 season) 2023 Influenza Vaccine (FLU shot) (#1) 2023 DTaP,Tdap,and Td Vaccines (8 - Td or Tdap) 08/20/2023 08/20/2013, 12/24/2005, 06/19/1995, Additional history exists Pap Smear 12/12/2026 12/12/2023, 01/02, 12/23/2016, Additional history exists Cervical Cancer Screening 12/12/2028 HPV/Co-Test 12/12/2028 12/12/2023 Hepatitis B Completed 04/14/2002, 01/2001, 05/19/2001 MENINGOCOCCAL (MENACTRA/MENVEO) Aged Out No longer eligible based on patient's age to complete this topic documented as of this encounter Medical Devices Not on filedocumented as of this encounter Visit Diagnoses Diagnosis Normal in second trimester- Primary Short interval between pregnancies complicating , antepartum Supervision of other high-risk Family history of congenital heart defect Family history of congenital anomalies Polyp of cervix Mucous polyp of cervix History of Goopp-Ahabpbzea-Exjbk (WPW) syndrome documented in this encounter Care Teams Ditching Machine Operator Relationship Specialty Start Date End Date José Bearden MD [address] [place] [address] PCP - General 03/27/04 documented as of this encounter
--- OUTSIDE RECORDS SUMMARY | 2024-06-12 11:41 | External Medical Summary ---
Author Name Unknown Address Unknown Organization K01:LABORATORY [facility] - [facility] [address] [place] [address] Laboratory Report Ordering Provider Test Date Status THEODOREMEGAN 04/14/2024 09:24:58 Final Observation Date Value Abnormality Reference (Units ) Status Retic, % (auto) 04/14/2024 09:24:58 2.18 Above high normal 0.80-1.90 (%) Final Reticulocytes, Absolute 04/14/2024 09:24:58 63.4 31.3-100.1 (K/uL) Final Reticulocyte fraction, immature 04/14/2024 09:24:58 24.5 Above high normal 2.5-20.6 (%) Final Reticulocyte HGB 04/14/2024 09:24:58 33.9 29.7-37.4 (pg) Final Performing Location LABORATORY [facility] - [address] [place] [address]
--- OUTSIDE RECORDS SUMMARY | 2024-06-12 11:41 | External Medical Summary ---
Author Name Unknown Address Unknown Organization K01:[facility] [place] [address] [place] [address] Laboratory Report Ordering Provider Test Date Status MEGAN JAIMES 04/14/2024 09:24:58 Final Observation Date Value Abnormality Reference (Units ) Status Ferritin 04/14/2024 09:24:58 22 13-150 (ng /mL) Final Performing Location LABORATORY [facility] - [address] [place] [address]
--- OUTSIDE RECORDS SUMMARY | 2024-06-12 11:41 | External Medical Summary | Summary of Care ---
Author Name Unknown Organization [facility] Address [address] [place] [address] Phone [phone] Care Team Providers Care Procedural Nurse Name Role Phone José Bearden MD Primary Care Provider +1- [phone] Reason for Visit * Reason Onset Date Comments Test Results Lab 03/01/2024 Encounter Details Date Type Department Care Team (Late st Contact Info) Description 03/01/2024 Telephone Dust Sampler Obstetrics Maternal Medicine, [place] [address] [place] [address] Taurus Acevedo, [address] [place] [address] Test Results Lab Allergies Active Allergy Reactions Criticality Noted Date Comments Lactose Intolerance 12/06/2005 documented as of this encounter (statuses as of 03/02/2024) Medications Medication Sig Dispensed Refills Start Date End Date Status Fluticasone Propionate 50 MCG/ACT Nasal Suspension Administer 1 [place] into nostril in the morning. 0 Active Ketotifen Fumarate 0.025 % Ophthalmic Solution 1 Drop in the morning and 1 Drop before bedtime. 0 Active Vitamin 27-0.8 MG Oral Tablet Take by mouth . 0 Active B-12 50 MCG Oral Tablet Take by mouth. 0 Active Ondansetron HCl 4 MG Oral TabletIndications:N ausea Take 1 Tablet by mouth every 6 hours as needed for Nausea. 30 Tablet 0 02/19/2024 Active documented as of this encounter (statuses as of 03/02/2024) Active Problems Problem Noted Date Diagnosed Date [...] and it was ordered today. History of Kkhuv-Isjdifypw-Hhpcg (WPW) syndrome 12/16/2023 Overview: S/p cardiac ablation 2005. Asymptomatic. Saw cardiology 12/04/22 who states ""The Kdgkj-Dgxdokkmi-Ofzvz he has been cured. She has no [...] as of this encounter (statuses as of 03/02/2024) Resolved Problems Problem Noted Date Diagnosed Date [...] repair at 4 months of age at [facility] [Doing well now, aged 9 years] [...] 11/04/2022 Other chronic allergic conjunctivitis 04/18/2008 11/04/2022 Cftvf-Ftlalmloq-Kxewq syndrome 12/24/2005 12/16/2023 Overview: - Luque Parkinson [...] -Declined genetic counseling -Per cardiology 12/04/22: "The Snnxm-Whvybjolw-Nzfpf he has been cured. She has no [...] as of this encounter (statuses as of 03/02/2024) Immunizations Name Administration Dates Next Due DTWP [...] money to buy more. Never true 01/22/20 Within the past 12 months, t he food you bought just didn't last and you didn't have money to get more. Never true 01/22/2023 [place] Depression Scale Answer Date Recorded [place] Depression Scale Total 0 12/12/2023 The thought [...] encounter Miscellaneous Notes * Telephone Encounter - ElenaKayli Mae, - 03/02/2024 10:10 AM EDT Results reviewed with Lyndsey by phone. Discussed carrier screening as an additional option if wanting to explore additional risk factors; pt declines at this point and is satisfied with workup thus far. Kayli Elena MS 03/02/2024 10:10 AM * Telephone Encounter - ElenaKayli lopez, MS - 03/01/2024 2:04 PM EDT LVM re good news from qnatal screening. Negative aneuploidy for 13, 18, 21, sex chromosomes EIFs indicate mineralization (calcification) of the cardiac muscle and are not associated with a structural defect. Discussed that EIFs can be a marker for Down syndrome. About 12% of fetuses with Down syndrome are found to have an EIF. most likely a benign variant when seen in the absence of other markers for aneuploidy. EIFs are seen in 1-4% of the general population as a benign variant Kayli Elena, 03/01/2024 2:06 PM documented in this encounter Plan of Treatment Upcoming Encounters Date Type Department Care Team (Late st Contact Info) Description 03/03/2024 10:30 AM EDT Office Visit Gynecology/Obstetrics Maddy Villanueva [address] [place] [address] Ruthy Trevino CRNP [address] [place] [address] Health Maintenance Due Date Last Done Comments Pneumococcal Vaccine: Pediatrics (0 to 5 Years) and At-Risk Patients (6 to 64 Years) (1 of 2 - PCV) 1996 GARDASIL-HPV IMMUNIZATION SERIES (3 - 3-dose series) 12/01/2009 08/01/2009, 05/31/2009 Depression Screening 09/13/2018 09/13/2017 COVID-19 Vaccine ( - 2022- season) 2023 DTaP,Tdap,and Td Vaccines (8 - Td or Tdap) 08/20/2023 08/20/2013, 12/24/2005, 06/19/1995, Additional history exists Influenza Vaccine (FLU shot) (Season Ended) 2024 Pap Smear 12/12/2026 12/12/2023, 01/02, 12/23/2016, Additional history exists Cervical Cancer Screening 12/12/2028 HPV/Co-Test 12/12/2028 12/12/2023 Hepatitis B Completed 04/14/2002, 01/2001, 05/19/2001 MENINGOCOCCAL (MENACTRA/MENVEO) Aged Out No longer eligible based on patient's age to complete this topic documented as of this encounter Medical Devices Not on filedocumented as of this encounter Visit Diagnoses Diagnosis Encounter for genetic screening- Primary Other genetic screening documented in this encounter Care Teams Procedural Nurse Relationship Specialty Start Date End Date José Bearden MD [address] [facility] [place] [address] PCP - General 03/27/04 documented as of this encounter
--- OUTSIDE RECORDS SUMMARY | 2024-06-12 11:41 | External Medical Summary | Summary of Care ---
Author Name Unknown Organization [facility] Address [address] [place] [address] Phone [phone] Care Team Providers Care Dimension Stone Quarry Supervisor Name Role Phone José Bearden MD Primary Care Provider +1- [phone] Reason for Visit * Reason Onset Date Comments Test Results 03/01/2024 QNATAL Results Encounter Details Date Type Department Care Team (Late st Contact Info) Description 03/01/2024 Telephone Adjusto Writer Operator Obstetrics Maternal Medicine, [place] [address] [place] [address] Reema Maradiaga CHRA Test Results (QNATAL Results) Allergies Active Allergy Reactions Criticality Noted Date Comments Lactose Intolerance 12/06/2005 documented as of this encounter (statuses as of 03/01/2024) Medications Medication Sig Dispensed Refills Start Date End Date Status Fluticasone Propionate 50 MCG/ACT Nasal Suspension Administer 1 [place] into nostril in the morning. 0 Active [...] as of this encounter (statuses as of 03/01/2024) Active Problems Problem Noted Date Diagnosed Date [...] and it was ordered today. 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 Asymptomatic. Saw cardiology 12/04/22 who states ""The Dssjl-Ojqrleujo-Zxryc he has been cured. She has no [...] as of this encounter (statuses as of 03/01/2024) Resolved Problems Problem Noted Date Diagnosed Date [...] repair at 4 months of age at [facility] [Doing well now, aged 9 years] [...] 11/04/2022 Other chronic allergic conjunctivitis 04/18/2008 11/04/2022 Zvgnd-Dodtgcmyn-Uzftz syndrome 12/24/2005 12/16/2023 Overview: - Luque Parkinson [...] -Declined genetic counseling -Per cardiology 12/04/22: "The Syhiz-Ojftgtwtm-Kocop he has been cured. She has no [...] as of this encounter (statuses as of 03/01/2024) Immunizations Name Administration Dates Next Due DTWP [...] money to get more. Never true 01/22/2023 [place] Depression Scale Answer Date Recorded [place] Depression Scale Total 0 12/12/2023 The thought [...] encounter Miscellaneous Notes * Telephone Encounter - Reema Maradiaga CHRA - 03/01/2024 1:20 PM EDT Cell-free DNA genetic screening results came back LOW RISK. Based on this screening test, the is not at high risk for trisomy 21, 18, 13, and sex chromosome abnormalities. Patient is assumed NOT aware of female sex of the fetus. OF NOTE: Echogenic intracardiac focus of fetus on ultrasound. GC routed to review results and notify patient. ABEBE Max Genetic Counseling Senior Strategy Manager Maternal Medicine For further questions call the Genetic Counselor at . documented in this encounter Plan of Treatment Upcoming Encounters Date Type Department Care Team (Late st Contact Info) Description 03/03/2024 10:30 AM EDT Office Visit Gynecology/Obstetrics [facility] [address] [place] [address] Ruthy Trevino CRNP [address] [place] [address] Health Maintenance Due Date Last Done Comments Pneumococcal Vaccine: Pediatrics (0 to 5 Years) and At-Risk Patients (6 to 64 Years) (1 of 2 - PCV) 1996 GARDASIL-HPV IMMUNIZATION SERIES (3 - 3-dose series) 12/01/2009 08/01/2009, 05/31/2009 Depression Screening 09/13/2018 09/13/2017 COVID-19 Vaccine (2022-24 season) 2023 DTaP,Tdap,and Td [...] filedocumented as of this encounter Care Teams Dimension Stone Quarry Supervisor Relationship Specialty Start Date End Date José Bearden MD [address] [place] [address] PCP - General 03/27/04 documented as of this encounter
--- OUTSIDE RECORDS SUMMARY | 2024-06-12 11:41 | External Medical Summary | Summary of Care ---
Author Name Unknown Organization [facility] Address [address] [place] [address] Phone [phone] Care Team Providers Care Overnight Associate Name Role Phone José Bearden MD Primary Care Provider +1- [phone] Reason for Visit * Reason Comments Return Visit Encounter Details Date Type Department Care Team (Late st Contact Info) Description 03/31/2024 10:30 AM EDT Office Visit Gynecology/Obstetric s [facility] Villanueva [address] [place] [address] Ruthy Trevino CRNP [address] [place] [address] Normal in second trimester*; Short interval between pregnancies complicating , antepartum; Family history of congenital heart defect; Polyp of cervix; History of Mkztx-Dwenyjhzo-Umqhg (WPW) syndrome; Echogenic intracardiac focus of fetus on ultrasound Allergies Active Allergy Reactions Criticality Noted Date Comments Lactose Intolerance 12/06/2005 documented as of this encounter (statuses as of 03/31/2024) Medications Medication Sig Dispensed Refills Start Date End Date Status Fluticasone Propionate 50 MCG/ACT Nasal Suspension Administer 1 [place] into nostril in the morning. 0 Active [...] as of this encounter (statuses as of 03/31/2024) Active Problems Problem Noted Date Diagnosed Date [...] and it was ordered today. 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 Asymptomatic. Saw cardiology 12/04/22 who states ""The Dhtaq-Jkbxsskft-Stzpo he has been cured. She has no [...] as of this encounter (statuses as of 03/31/2024) Resolved Problems Problem Noted Date Diagnosed Date [...] at 4 months of age at [facility] [Doing well now, aged 9 years] [...] 11/04/2022 Other chronic allergic conjunctivitis 04/18/2008 11/04/2022 Tsbdw-Xddokjaqb-Ncepf syndrome 12/24/2005 12/16/2023 Overview: - Luque Parkinson [...] -Declined genetic counseling -Per cardiology 12/04/22: "The Ixvzs-Fszzihvew-Wksja he has been cured. She has no [...] as of this encounter (statuses as of 03/31/2024) Immunizations Name Administration Dates Next Due DTWP [...] money to get more. Never true 01/22/2023 [place] Depression Scale Answer Date Recorded [place] Depression Scale Total 0 12/12/2023 The thought [...] Reading Time Taken Comments Blood Pressure 100/62 03/31/2024 10:25 AM EDT Pulse - - Temperature - - Respiratory Rate - - Oxygen Saturation - - Inhaled Oxygen Concentration - - Weight 71.2 kg (157 lb) 03/31/2024 10:25 AM EDT Height 165.1 cm (5' 5") 03/31/2024 10:25 AM EDT Body Mass Index 26.13 03/31/2024 10:25 AM EDT documented in this encounter Progress Notes * Ruthy Trevino CRNP - 03/31/2024 10:46 AM EDT 25w5d Complaints: none Feeling well. Good FM. No contractions, bleeding, or LOF. Glucola with next visit. BRIT Phillips documented in this encounter Nursing Notes * Isa Ramos LPN - 03/31/2024 10:28 AM EDT 25w5d Denies concerns documented in this encounter Plan of Treatment Upcoming Encounters Date Type Department Care Team (Late st Contact Info) Description 04/14/2024 8:30 AM EDT Laboratory Laboratory, [facility] [address] [facility] [place] [phone] [facility] [address] [place] [address] 04/14/2024 9:00 AM EDT Office Visit Gynecology/Obstetrics [facility] [address] [facility] [place] [address] Rena Saldana, ROSALIE [address] [facility] [place] [address] Scheduled Orders Name Type Priority Associated Diagnoses Orde r Schedule 50-G GESTATIONAL GLUCOSE, 1 HOUR Lab Routine Normal in second trimester Expected: 05/01/2024 (Approximate), Expires: 03/31/2025 CBC WITH WBC DIFFERENTIAL AND ANEMIA REFLEX WORKUP Lab Routine Normal in second trimester Expected: 05/01/2024 (Approximate), Expires: 03/31/2025 SYPHILIS ANTIBODY SCREEN WITH REFLEX TO RPR Lab Routine Normal in second trimester Expected: 05/01/2024 (Approximate), Expires: 03/31/2025 Health Maintenance Due Date Last Done Comments Pneumococcal Vaccine: Pediatrics (0 to 5 Years) and At-Risk Patients (6 to 64 Years) (1 of 2 - PCV) 1996 GARDASIL-HPV IMMUNIZATION SERIES (3 - 3-dose series) 12/01/2009 08/01/2009, 05/31/2009 Depression Screening 09/13/2018 09/13/2017 COVID-19 Vaccine (2022- season) 2023 DTaP,Tdap,and Td [...] cervix Mucous polyp of cervix History of Tvymc-Otsirtoto-Ltyad (WPW) syndrome Echogenic intracardiac focus of fetus on ultrasound Abnormal findings on screening documented in this encounter Care Teams Overnight Associate Relationship Specialty Start Date End Date José Bearden MD [address] [place] [address] PCP - General 03/27/04 documented as of this encounter
--- OUTSIDE RECORDS SUMMARY | 2024-06-12 11:41 | External Medical Summary | Summary of Care ---
Author Name Unknown Organization [facility] Address [address] [place] [address] Phone [phone] Care Team Providers Care Human Resources Compliance Manager Name Role Phone José Bearden MD Primary Care Provider +1- [phone] Reason for Referral * (Within 10 days (routine)) Specialty Diagnoses / Procedures Referred By Will joyner Referred To Contact Ruthy Trevino CRNP [address] [place] [address] Referral ID Status Reason Start Date Expiration Date Visits Re quested Visits Authorized Question Answer Referral Priority Within 10 days (routine) Where should this appointment be scheduled? [facility] Reason for Visit * Reason Onset Date Comments Test Results 04/15/2024 Encounter Details Date Type Department Care Team (Late st Contact Info) Description 04/15/2024 Telephone Gynecology/Obstetrics [facility] [address] [place] [address] Ruthy Trevino CRNP [address] [place] [address] Test Results Allergies Active Allergy Reactions Criticality Noted Date Comments Lactose Intolerance 12/06/2005 documented as of this encounter (statuses as of 04/16/2024) Medications Medication Sig Dispensed Refills Start Date End Date Status Fluticasone Propionate 50 MCG/ACT Nasal Suspension Administer 1 [place] into nostril in the morning. 0 Active Ketotifen Fumarate 0.025 % Ophthalmic Solution 1 Drop in the morning and 1 Drop before bedtime. 0 Active Vitamin 27-0.8 MG Oral Tablet Take by mouth . 0 Active B-12 50 MCG Oral Tablet Take by mouth. 0 Active Vitamin B-12 1000 MCG Oral Tablet (Cyanocobalamin) Take 1 Tablet by mouth in the morning. 30 Tablet 5 04/16/2024 Active documented as of this encounter (statuses as of 04/16/2024) Active Problems Problem Noted Date Diagnosed Date [...] and it was ordered today. 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 Asymptomatic. Saw cardiology 12/04/22 who states ""The Ohhwf-Bewjqwyao-Voxfk he has been cured. She has no [...] as of this encounter (statuses as of 04/16/2024) Resolved Problems Problem Noted Date Diagnosed Date [...] repair at 4 months of age at [facility] [Doing well now, aged 9 [...] 11/04/2022 Other chronic allergic conjunctivitis 04/18/2008 11/04/2022 Khjpb-Rrdyiwtjt-Wcccy syndrome 12/24/2005 12/16/2023 Overview: - Luque Parkinson [...] -Declined genetic counseling -Per cardiology 12/04/22: "The Fwfmz-Bqkephdvp-Zsvvh he has been cured. She has no [...] as of this encounter (statuses as of 04/16/2024) Immunizations Name Administration Dates Next Due DTWP [...] money to get more. Never true 04/14/2024 [place] Depression Scale Answer Date Recorded [place] Depression Scale Total 0 12/12/2023 The thought [...] documented in this encounter Plan of Treatment Scheduled Referrals Name Type Priority Associated Diagnoses [...] antepartum documented in this encounter Care Teams Human Resources Compliance Manager Relationship Specialty Start Date End Date José Bearden MD [address] [place] [address] PCP - General 03/27/04 documented as of this encounter
--- OUTSIDE RECORDS SUMMARY | 2024-06-12 11:41 | External Medical Summary ---
Author Name Unknown Address Unknown Organization K0G:[facility]ORY [facility] [address] [place] [address] Laboratory Report Ordering Provider Test Date Status MEGAN JAIMES 04/14/2024 09:24:58 Final Observation Date Value Abnormality Reference (Units ) Status Glucose [Moles/volume] in Serum or Plasma --1 hour post 50 g glucose PO 04/14/2024 09:24:58 77 70-129 (mg/dL) Final Performing Location LAB[facility]ATORY [facility] [address] [place] [address]
--- OUTSIDE RECORDS SUMMARY | 2024-06-12 11:41 | External Medical Summary | Summary of Care ---
Author Name Unknown Organization [facility] Address [address] [place] [address] Phone [phone] Care Team Providers Care Train Electronic Technician Name Role Phone José Bearden MD Primary Care Provider +1- [phone] Reason for Visit * Reason Comments Blood Management Program Encounter Details Date Type Department Care Team (Late st Contact Info) Description 04/16/2024 Documentation Patient Blood Management, [address] [address] Kodi Suarez RN Allergies Active Allergy Reactions Criticality Noted Date Comments Lactose Intolerance 12/06/2005 documented as of this encounter (statuses as of 04/16/2024) Medications Medication Sig Dispensed Refills Start Date End Date Status Fluticasone Propionate 50 MCG/ACT Nasal Suspension Administer 1 [place] into nostril in the morning. 0 Active [...] and it was ordered today. 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 Asymptomatic. Saw cardiology 12/04/22 who states ""The Laynn-Sflotlwxb-Dhhsi he has been cured. 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 She has no [...] money to get more. Never true 04/14/2024 [place] Depression Scale Answer Date Recorded [place] Depression Scale Total 0 12/12/2023 The thought [...] Progress Notes * Kodi Suarez, JULIA - 04/16/2024 2:10 PM EDT REFERRAL - Patient Blood Management Name: Lyndsey Wesley REQUESTING SERVICE: [facility] REASON FOR REFERRAL: new evaluation outpatient, Anemia [...] absorption: None Patient Refused Blood Transfusion? (e.g. Shinto): no Possible Contributing Factors: iron deficiency Treatment Recommendations: Recommend Venofer IV per OB MTM Protocol Pt. Agreeable to IV iron at [facility] Follow-up Recommendations: Follow up with PCP for further assessment/management of anemia post discharge. 04/16- agreeable at [facility] Thank you for allowing Blood Management to participate in the care of this patient. documented in this encounter Plan of Treatment Health Maintenance Due Date Last Done Comments [...] filedocumented as of this encounter Care Teams Train Electronic Technician Relationship Specialty Start Date End Date José Bearden MD [address] [place] [address] PCP - General 03/27/04 documented as of this encounter
--- OUTSIDE RECORDS SUMMARY | 2024-06-12 11:41 | External Medical Summary | Summary of Care ---
Author Name Unknown Organization [facility] Address [address] [place] [address] Phone [phone] Care Team Providers Care Pet House Sitter Name Role Phone José Bearden MD Primary Care Provider +1- [phone] Reason for Visit * Reason Onset Date Comments Test Results Lab 03/01/2024 Encounter Details Date Type Department Care Team (Late st Contact Info) Description 03/01/2024 Telephone [facility] Obstetrics [facility], [place] [address] [place] [address] Taurus Acevedo, [address] [place] [address] Test Results Lab Allergies Active Allergy Reactions Criticality Noted Date Comments Lactose Intolerance 12/06/2005 documented as of this encounter (statuses as of 03/01/2024) Medications Medication Sig Dispensed Refills Start Date End Date Status Fluticasone Propionate 50 MCG/ACT Nasal Suspension Administer 1 [place] into nostril in the morning. 0 Active [...] and it was ordered today. 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 Asymptomatic. Saw cardiology 12/04/22 who states ""The Nqncd-Jdtwuxnmn-Tnjvj he has been cured. She has no [...] 4 months of age at [facility] [Doing well now, aged 9 years] -Declines [...] 11/04/2022 Other chronic allergic conjunctivitis 04/18/2008 11/04/2022 Nqoyv-Qegygljzs-Gtvgw syndrome 12/24/2005 12/16/2023 Overview: - Luque Parkinson [...] -Declined genetic counseling -Per cardiology 12/04/22: "The Ksnqp-Gndmkwrei-Uaspj he has been cured. She has no [...] money to get more. Never true 01/22/2023 [place] Depression Scale Answer Date Recorded [place] Depression Scale Total 0 12/12/2023 The thought [...] encounter Miscellaneous Notes * Telephone Encounter - Kayli Elena, MS - 03/01/2024 2:04 PM EDT LVM [...] 03/03/2024 10:30 AM EDT Office Visit Gynecology/Obstetrics [facility] [address] [place] [address] Ruthy Trevino CRNP [address] [place] [address] Health Maintenance Due Date Last Done Comments Pneumococcal Vaccine: Pediatrics (0 to 5 Years) and At-Risk Patients (6 to 64 Years) (1 of 2 - PCV) 1996 GARDASIL-HPV IMMUNIZATION SERIES (3 - 3-dose series) 12/01/2009 08/01/2009, 05/31/2009 Depression Screening 09/13/2018 09/13/2017 COVID-19 Vaccine ( season) 2023 DTaP,Tdap,and Td [...] screening documented in this encounter Care Teams Pet House Sitter Relationship Specialty Start Date End Date José Bearden MD [address] [place] [address] PCP - General 03/27/04 documented as of this encounter
--- OUTSIDE RECORDS SUMMARY | 2024-06-12 11:41 | External Medical Summary | Summary of Care ---
Author Name Unknown Organization [facility] Address [address] [place] [address] Phone [phone] Care Team Providers Care Advanced Manufacturing Technician Name Role Phone José Bearden MD Primary Care Provider +1- [phone] Reason for Visit * Reason Comments Return Visit Encounter Details Date Type Department Care Team (Late st Contact Info) Description 04/14/2024 9:00 AM EDT Office Visit Gynecology/Obstetric [facility] [address] [facility] [place] [address] Rena Saldana, [facility] [address] [facility] [place] [address] Encounter for supervision of other normal in second trimester*; Short interval between pregnancies complicating , antepartum; History of Lgkex-Aeonnosyu-Npeyb (WPW) syndrome; Echogenic intracardiac focus of fetus on ultrasound Allergies Active Allergy Reactions Criticality Noted Date Comments Lactose Intolerance 12/06/2005 documented as of this encounter (statuses as of 04/14/2024) Medications Medication Sig Dispensed Refills Start Date End Date Status Fluticasone Propionate 50 MCG/ACT Nasal Suspension Administer 1 [place] into nostril in the morning. 0 Active Ketotifen Fumarate 0.025 % Ophthalmic Solution 1 Drop in the morning and 1 Drop before bedtime. 0 Active Vitamin 27-0.8 MG Oral Tablet Take by mouth . 0 Active B-12 50 MCG Oral Tablet Take by mouth. 0 Active Ondansetron HCl 4 MG Oral TabletIndication s:Nausea Take 1 Tablet by mouth every 6 hours as needed for Nausea. 30 Tablet 0 02/19/2024 04/14/2024 Discontinued (Medication List Clean Up) documented as of this encounter (statuses as [...] and it was ordered today. 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 Asymptomatic. Saw cardiology 12/04/22 who states ""The Blvts-Eizypyzwe-Uynlu he has been cured. She has no [...] repair at 4 months of age at [facility] [Doing well now, aged 9 [...] 11/04/2022 Other chronic allergic conjunctivitis 04/18/2008 11/04/2022 Geqvo-Dqveomnpf-Wflmg syndrome 12/24/2005 12/16/2023 Overview: - Luque Parkinson [...] -Declined genetic counseling -Per cardiology 12/04/22: "The Ckrdu-Vamnuatsc-Bjmas he has been cured. She has no [...] money to get more. Never true 04/14/2024 [place] Depression Scale Answer Date Recorded [place] Depression Scale Total 0 12/12/2023 The thought [...] Reading Time Taken Comments Blood Pressure 98/58 04/14/2024 8:41 AM EDT Pulse - - Temperature - - Respiratory Rate - - Oxygen Saturation - - Inhaled Oxygen Concentration - - Weight 71.7 kg (158 lb) 04/14/2024 8:41 AM EDT Height - - Body Mass Index 26.29 03/31/2024 10:25 AM EDT documented in this encounter Progress Notes * Rena Saldana CNM - 04/14/2024 9:00 AM EDT Lyndsey Wesley is a 34 year old female here for her routine OB appointment at 27w5d Her Estimated Date of Delivery: 07/09/24 REVIEW OF SYSTEMS: She affirms movement. Denies vaginal bleeding, LOF, N/V, headaches, vision changes, and RUQ pain. Occasional BH contractions. EPDS score = 0 PHYSICAL EXAM: Filed Vitals: 04/14/24 0841 BP: 98/58 Weight: 71.7 kg (158 lb) +FHT 150-160bpm Fundal height: 27cm ASSESSMENT/PLAN: (O09.899) Short interval between pregnancies complicating , antepartum (Z86.79) History of Jcwpn-Zbqvzzgaw-Jqbar (WPW) syndrome (O28.3) Echogenic intracardiac focus of fetus on ultrasound Plan: -Patient has been evaluated by MFM on 02/16/24; no MFM follow up needed at this time (Z34.82) Encounter for supervision of other normal in second trimester (primary encounterdiagnosis) Plan: - recommended tdap vaccine ; patient declines - planning to complete CBC, GTT, and syphilis screen today - she declines prescription for a breast pump; plans to bottle feed - is planning vasectomy for contraception - rhogam not needed d/t O+ blood type - labor precautions and kick counts reviewed - RTO in 2 weeks Rena Saldana CNM * Carly Araiza LPN - 04/14/2024 8:42 AM EDT 27w5d Denies vaginal bleeding/rom + movement Gtt today Declines tdap today documented in this encounter Plan of Treatment [...] this encounter Visit Diagnoses Diagnosis Encounter for supervision of other normal in second trimester- Primary Short interval between pregnancies complicating , antepartum Supervision of other high-risk History of Nvgzo-Iegyurypa-Vxtmh (WPW) syndrome Echogenic intracardiac focus of fetus on ultrasound Abnormal findings on screening documented in this encounter Care Teams Advanced Manufacturing Technician Relationship Specialty Start Date End Date José Bearden MD [address] [place] [address] PCP - General 03/27/04 documented as of this encounter
--- OUTSIDE RECORDS SUMMARY | 2024-06-12 11:41 | External Medical Summary ---
Author Name Unknown Address Unknown Organization K01:[facility] - [address] [place] [address] Laboratory Report Ordering Provider Test Date Status MEGAN JAIMES 04/14/2024 09:24:58 Final Observation Date Value Abnormality Reference (Units ) Status Iron 04/14/2024 09:24:58 76 33-151 (ug /dL) Final Iron-binding capacity 04/14/2024 09:24:58 423 250-425 (ug/dL) Final Transferrin Sat % 04/14/2024 09:24:58 18 15 -55 (%) Final Performing Location [facility] - [address] [place] [address]
--- OUTSIDE RECORDS SUMMARY | 2024-06-12 11:41 | External Medical Summary ---
Author Name Unknown Address Unknown Organization K01:[facility] - [address] [facility] [place] [address] Laboratory Report Ordering Provider Test Date Status MEGAN JAIMES 04/14/2024 09:24:58 Final Observation Date Value Abnormality Reference (Units ) Status SYNC LEUKOCYTES IN BLOOD BY AUTOMATED COUNT 04/14/2024 09:24:58 6.07 4.00-10.80 (K/uL) Final Neutrophils/100 leukocytes in Blood by Manual count 04/14/2024 09:24:58 72.0 40.0-75.0 (%) Final Lymphocytes/100 leukocytes in Blood by Manual count 04/14/2024 09:24:58 18.0 18.0-42.0 (%) Final Monocytes/100 leukocytes in Blood by Manual count 04/14/2024 09:24:58 6.0 1.0-11.0 (%) Final Eosinophils/100 leukocytes in Blood by Manual count 04/14/2024 09:24:58 1.0 0.0-6.0 (%) Final Basophils/100 leukocytes in Blood by Manual count 04/14/2024 09:24:58 1.0 0.0-2.0 (%) Final Myelocytes/100 leukocytes in Blood by Manual count 04/14/2024 09:24:58 2.0 Above high normal <=0.0 (%) Final Neutrophils [#/volume] in Blood by Manual count 04/14/2024 09:24:58 4.37 1.80-7.70 (K/uL) Final Lymphocytes [#/volume] in Blood by Manual count 04/14/2024 09:24:58 1.09 1.00-4.80 (K/uL) Final Monocytes [#/volume] in Blood by Manual count 04/14/2024 09:24:58 0.36 0.00-1.10 (K/uL) Final Eosinophils [#/volume] in Blood by Manual count 04/14/2024 09:24:58 0.06 0.00-0.70 (K/uL) Final Basophils [#/volume] in Blood by Manual count 04/14/2024 09:24:58 0.06 0.00-0.20 (K/uL) Final Myelocytes [#/volume] in Blood by Manual count 04/14/2024 09:24:58 0.12 Above high normal <=0.00 (K/uL) Final Performing Location LABORATORY [facility] - [facility] [address] [facility] [address]
--- OUTSIDE RECORDS SUMMARY | 2024-06-12 11:41 | External Medical Summary | Summary of Care ---
Author Name Unknown Organization [facility] Address [address] [place] [address] Phone [phone] Care Team Providers Care Electromatic Typist Name Role Phone José Bearden MD Primary Care Provider +1- [phone] Encounter Details Date Type Department Care Team (Late st Contact Info) Description 02/19/2024 Orders Only [facility], [facility] [address] [place] [address] Juan M More PA-C [address] [place] [address] Nausea* Allergies Active Allergy Reactions Criticality Noted Date Comments Lactose Intolerance 12/06/2005 documented as of this encounter (statuses as of 02/19/2024) Medications Medication Sig Dispensed Refills Start Date End Date Status Fluticasone Propionate 50 MCG/ACT Nasal Suspension Administer 1 [place] into nostril in the morning. 0 Active [...] as of this encounter (statuses as of 02/19/2024) Active Problems Problem Noted Date Diagnosed Date [...] and it was ordered today. 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 Asymptomatic. Saw cardiology 12/04/22 who states ""The Cwntw-Hnqhjiqka-Karvv he has been cured. 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 She has no [...] as of this encounter (statuses as of 02/19/2024) Immunizations Name Administration Dates Next Due DTWP [...] money to get more. Never true 01/22/2023 [place] Depression Scale Answer Date Recorded [place] Depression Scale Total 0 12/12/2023 The thought [...] as of this encounter Progress Notes * Juan M More PA-C - 02/19/2024 7:51 PM EDT Upkeep Mechanic Provider Note: engineering drafter note reviewed. Gracean sent. Patient needs to f/u with OB on 02/20/24. documented in this encounter Plan of Treatment Upcoming Encounters Date Type Department Care Team (Late st Contact Info) Description 03/03/2024 10:30 AM EDT Office Visit Gynecology/Obstetrics [facility] [address] [place] [address] Ruthy Trevino CRNP [address] [place] [address] Health Maintenance Due Date Last Done Comments Pneumococcal Vaccine: Pediatrics (0 to 5 Years) and At-Risk Patients (6 to 64 Years) (1 of 2 - PCV) 1996 GARDASIL-HPV IMMUNIZATION SERIES (3 - 3-dose series) 12/01/2009 08/01/2009, 05/31/2009 Depression Screening 09/13/2018 09/13/2017 COVID-19 Vaccine (2022- season) 2023 Influenza Vaccine (FLU shot) (#1) 2023 DTaP,Tdap,and Td Vaccines (8 - Td or Tdap) 08/20/2023 08/20/2013, 12/24/2005, 06/19/1995, Additional history exists Pap Smear 12/12/2026 12/12/2023, 02/2 , 12/23/2016, Additional history exists Cervical Cancer Screening 12/12/2028 HPV/Co-Test 12/12/2028 12/12/2023 Hepatitis B Completed 04/14/2002, 01/2001, 05/19/2001 MENINGOCOCCAL (MENACTRA/MENVEO) Aged Out No longer eligible based on patient's age to complete this topic documented as of this encounter Medical Devices Not on filedocumented as of this encounter Visit Diagnoses Diagnosis Nausea- Primary Nausea alone documented in this encounter Care Teams Electromatic Typist Relationship Specialty Start Date End Date José Bearden MD [address] [place] [address] PCP - General 03/27/04 documented as of this encounter
--- OUTSIDE RECORDS SUMMARY | 2024-06-12 11:41 | External Medical Summary ---
Author Name Unknown Address Unknown Organization : Laboratory Report Ordering Provider Test Date Status JACK PLATT 02/18/2024 12:43:22 Final Observation Date Value Abnormality Reference (Units ) Status NUMBER OF FETUSES? 02/18/2024 12:43:22 1 Final ADVANCED MATERNAL AGE? 02/18/2024 12:43:22 NO Final ABNORMAL LUZ? 02/18/2024 12:43:22 NO Final ABNORMAL US? 02/18/2024 12:43:22 EIF Final PERSONAL/FAM HISTORY? 02/18/2024 12:43:22 NOT GIVEN Final INTERPRETATION 02/18/2024 12:43:22 SEE BELOW Final This specimen showed an expe cted representation of
chromosome 21, 18, and 13 material. Results were
not analyzed or reported for microdeletions. See
'Limitations' below. TRISOMY 21 (T21) 02/18/2024 12:43:22 Negative Final TRISOMY 18 (T18) 02/18/2024 12:43:22 Negative Final TRISOMY 13 (T13) 02/18/2024 12:43:22 Negative Final Y CHROMOSOME 02/18/2024 12:43:22 Not detected Final Y CHR. INTERPRETATION 02/18/2024 12:43:22 SEE BELOW Final Consistent with a female fet us. SEX CHROMOSOME 02/18/2024 12:43:22 No aneuploidy Final SEX CHROMOSOME INTERP 02/18/2024 12:43:22 SEE BELOW Final No apparent abnormality was detected. See
'Limitations' below. MICRODELETION 02/18/2024 12:43:22 Opted Out Final MICRODELETION INTERP 02/18/2024 12:43:22 SEE BELOW Final Results were not analyzed or reported for
microdeletions. GESTATIONAL AGE (IN WEEKS) 02/18/2024 12:43:22 19 Final GESTATIONAL AGE (IN DAYS) 02/18/2024 12:43:22 5 Final FRACTION 02/18/2024 12:43:22 12.31% Final LABORATORY COMMENTS 02/18/2024 12:43:22 SEE BELOW Final Laboratory testing supervise d and results
monitored by Loren Guadalupe, Ph.D., [facility] [place]
[facility]. LIMITATIONS 02/18/2024 12:43:22 SEE BELOW Final QNatal(R) Advanced is a cell -free DNA test that
screens for increased risk of certain
chromosomal abnormalities that may cause
defects, including Trisomy 21 (Down syndrome),
Trisomy 18, Trisomy 13, and certain sex chromosome
abnormalities (i.e., 45,X, 47,XXY, 47,XXX, and
47,XYY), as well as sex. In addition, if
selected as an option, QNatal(R) Advanced can
screen for certain microdeletions (i.e., 22q, 5p,
1p36, 15q, 11q, 8q, and 4p) that may cause
defects. This test does not assess the risk of
abnormalities such as neural tube defects or
ventral wall defects and should not be considered
in isolation from other clinical findings and
laboratory test results.
QNatal(R) Advanced has been validated in martin
pregnancies for the trisomies and sex chromosome
abnormalities listed above, as well as for
microdeletions, and for the determination of
sex. Sex chromosome aneuploidy analysis is only
performed in martin pregnancies. The test has
also been validated in twin pregnancies for the
trisomies listed above and for microdeletions, but
not for the sex chromosome abnormalities due to
limited data. The test has not been validated in
higher order pregnancies (more than two) because
limited data is available.
Microdeletion screening is limited to the
specified microdeletion regions (see
'Methodology'). The Y chromosome is analyzed for
the determination of sex. The sensitivity
and specificity of sex determination
analysis may be less than that of the Trisomy 21,
18, and 13 analysis and this determination can be
confounded by vanishing twin syndrome in
pregnancies that were originally multiple
gestation pregnancies. It should be noted that
QNatal(R) Advanced is a quantitative analysis of
maternal and placental cfDNA. As a result, the
accuracy of the screening test results may be
affected by the presence of chromosome
abnormalities or microdeletions that are maternal
or confined placental in origin. False positive
findings involving the examined chromosomes and
microdeletion regions may be due to maternal,
placental, or mosaicism, by vanishing twin
syndrome, or other unexplained causes. SPECIFICATIONS 02/18/2024 12:43:22 SEE BELOW Final Sensitivity Specificity
T21 >99.9% >99.9%
T18 >99.9% >99.9%
T13 >99.9% >99.9%
Accuracy
Y >99.9%
Performance of the QNatal Advanced
laboratory-developed test (LDT) has been
determined based on internal analytical
assessment. METHODOLOGY 02/18/2024 12:43:22 SEE BELOW Final Circulating cell-free (cf) D NA was isolated from
plasma followed by detection on a massively
parallel sequencing platform. Bioinformatic
analysis was performed to determine the
representation of chromosomes 21, 18, 13, X and Y
in circulating cell-free DNA. The representation
of sequences from the critical regions involved in
1p36 microdeletion syndrome (1p36),
Luque-Hirschhorn syndrome (4p), Cri-du-chat
syndrome (5p), Ira-Giedion syndrome (8p),
Skylar syndrome (11q), Prader Willi
syndrome/Angelman syndrome (15q), and DiGeorge
syndrome (22q) is evaluated for the detection of
microdeletions if requested. This test was
developed, and its performance characteristics
have been determined by [facility]. It has not been
cleared or approved by the U.S. Food and Drug
Administration. Performance characteristics refer
to the analytical performance of the test. This
test is performed pursuant to a license agreement
with [employer].
This test was developed and its analytical
performance characteristics have been determined
by [facility]. It has not been cleared or
approved by FDA. This assay has been validated
pursuant to the CLIA regulations and is used for
clinical purposes.
Test performed by [facility]
[address] [facility],
[place] [address]

Parent Coach: Елена Fisher MD,PHD,ASHLEY
Test Reported by Snehal Richards,
[facility],
[address] [place], [place]
Dario Grace M.D., Ph.D., Director of Laboratories
, CLIA [id number] Performing Location
--- OUTSIDE RECORDS SUMMARY | 2024-06-12 11:41 | External Medical Summary ---
Author Name Unknown Address Unknown Organization [id number]:[place] [facility] [place] [address] [place] [address] Laboratory Report Ordering Provider Test Date Status MEGAN JAIMES 04/14/2024 09:24:58 Final Observation Date Value Abnormality Reference (Units ) Status Vitamin B12 04/14/2024 09:24:58 205 Below low normal 2 32-1245 (pg/mL) Final Performing Location [facility] - [address] [place] [address]
--- OUTSIDE RECORDS SUMMARY | 2024-06-12 11:41 | External Medical Summary ---
Author Name Unknown Address Unknown Organization K01:LABORATORY [facility] - [address] [place] [address] Laboratory Report Ordering Provider Test Date Status MEGAN JAIMES 04/14/2024 09:24:58 Final Observation Date Value Abnormality Reference (Units ) Status TSH 04/14/2024 09:24:58 1.07 0.27-4.20 (uIU/mL) Final Performing Location [facility] - [address] [place] [address]
--- OUTSIDE RECORDS SUMMARY | 2024-06-12 11:41 | External Medical Summary | Summary of Care ---
Author Name Unknown Organization [facility] Address [address] [place] [address] Phone [phone] Care Team Providers Care Director Case Name Role Phone José Bearden MD Primary Care Provider +1- [phone] Reason for Visit * Reason Comments Ultrasound Encounter Details Date Type Department Care Team (Late st Contact Info) Description 02/16/2024 10:30 AM EDT Office Visit Application Support Lead Obstetrics Maternal Medicine, [place] [address] [place] [address] Taurus Acevedo, [address] [place] [address] Family history of congenital heart defect*; Short interval between pregnancies complicating , antepartum; History of Avmpm-Vimfojoac-Zenfu (WPW) syndrome; Echogenic intracardiac focus of fetus on ultrasound; 19 weeks gestation of Allergies Active Allergy Reactions Criticality Noted Date Comments Lactose Intolerance 12/06/2005 documented as of this encounter (statuses as of 02/16/2024) Medications Medication Sig Dispensed Refills Start Date End Date Status Fluticasone Propionate 50 MCG/ACT Nasal Suspension Administer 1 [place] into nostril in the morning. 0 Active Ketotifen Fumarate 0.025 % Ophthalmic Solution 1 Drop in the morning and 1 Drop before bedtime. 0 Active Vitamin 27-0.8 MG Oral Tablet Take by mouth . 0 Active B-12 50 MCG Oral Tablet Take by mouth. 0 Active documented as of this encounter (statuses as of 02/16/2024) Active Problems Problem Noted Date Diagnosed Date [...] and it was ordered today. 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 Asymptomatic. Saw cardiology 12/04/22 who states ""The Oxfob-Koopehjme-Ztdol he has been cured. She has no [...] as of this encounter (statuses as of 02/16/2024) Resolved Problems Problem Noted Date Diagnosed Date [...] at 4 months of age at [facility] [Doing well now, aged 9 [...] 11/04/2022 Other chronic allergic conjunctivitis 04/18/2008 11/04/2022 Yposg-Avkqohivr-Ioets syndrome 12/24/2005 12/16/2023 Overview: - Luque Parkinson [...] -Declined genetic counseling -Per cardiology 12/04/22: "The Lgdaw-Gwjpgpvxj-Yqzjp he has been cured. She has no [...] as of this encounter (statuses as of 02/16/2024) Immunizations Name Administration Dates Next Due DTWP [...] money to get more. Never true 01/22/2023 [place] Depression Scale Answer Date Recorded [place] Depression Scale Total 0 12/12/2023 The thought [...] as of this encounter Progress Notes * Taurus Acevedo, DO - 02/16/2024 12:16 PM EDT MATERNAL MEDICINE VISIT Lyndsey Wesley is at 19w3d who presents to [facility] for an ultrasound and follow-up of her high risk . PHYSICAL EXAM: General: pleasant, alert and oriented, no acute distress She is being seen today by Maternal- Medicine for the following reasons: Problem List Items Addressed This Visit Short interval between pregnancies complicating , antepartum Family history of congenital heart defect - Primary She presents for a anatomy survey. She [...] identify all anomalies, but it is reassuring thatno anomalies were seen today. History of Pduob-Ehxpkvayf-Hjeal (WPW) syndrome Echogenic intracardiac focus of fetus on ultrasound Reviewed that today's ultrasound notes an echogenic [...] discussed cffDNA and it was ordered today. Other Visit Diagnoses 19 weeks gestation of We reviewed today's ultrasound findings. (For full report, please refer to ultrasound report provided separately). Ms. Wesley's questions were answered to her satisfaction. RECOMMENDATIONS: No follow-up with Maternal Medicine is necessary unless further questions or indications arise. Thank you for allowing us to participate in the care of this patient. Please call with any questions. Taurus Acevedo DO 02/16/2024 12:16 PM documented in this encounter Nursing Notes * Geeta Badillo CCMA - 02/16/2024 10:30 AM EDT Lyndsey reports a fall last Friday. Claims she did not hit her abdomen and was not seen by OB afterwards. documented in this encounter Miscellaneous Notes * Assessment & Plan Note - Taurus Acevedo DO - 02/16/2024 12:16 PM EDT Associated Problem(s): Echogenic intracardiac focus of fetus on ultrasound Reviewed that today's ultrasound notes an echogenic [...] discussed cffDNA and it was ordered today. * Assessment & Plan Note - Taurus Acevedo DO - 02/16/2024 10:40 AM EDT Associated Problem(s): Family history of congenital heart defect She presents for a anatomy survey. She [...] identify all anomalies, but it is reassuring thatno anomalies were seen today. documented in this encounter Plan of Treatment Upcoming Encounters Date Type Department Care Team (Late st Contact Info) Description 03/03/2024 10:30 AM EDT Office Visit Gynecology/Obstetrics Maddy Villanueva [address] [place] [address] Ruthy Trevino CRNP [address] [place] [address] Scheduled Orders Name Type Priority Associated Diagnoses Orde r Schedule QNATAL ADVANCED ([facility]) Lab Routine Echogenic intracardiac focus of fetus on ultrasound Expected: 02/16/2024 (Approximate), Expires: 08/18/2024 Health Maintenance Due Date Last Done Comments Pneumococcal Vaccine: Pediatrics (0 to 5 Years) and At-Risk Patients (6 to 64 Years) (1 of 2 - PCV) 1996 GARDASIL-HPV IMMUNIZATION SERIES (3 - 3-dose series) 12/01/2009 08/01/2009, 05/31/2009 Depression Screening 09/13/2018 09/13/2017 COVID-19 Vaccine (1 - 2022- season) 2023 Influenza Vaccine (FLU shot) (#1) 2023 DTaP,Tdap,and Td Vaccines (8 - Td or Tdap) 08/20/2023 08/20/2013, 12/24/2005, 06/19/1995, Additional history exists Pap Smear 12/12/2026 12/12/2023, 02/, 12/23/2016, Additional history exists Cervical Cancer Screening 12/12/2028 HPV/Co-Test 12/12/2028 12/12/2023 Hepatitis B Completed 04/14/2002, 01/2001, 05/19/2001 MENINGOCOCCAL (MENACTRA/MENVEO) Aged Out No longer eligible based on patient's age to complete this topic documented as of this encounter Medical Devices Not on filedocumented as of this encounter Visit Diagnoses Diagnosis Family history of congenital heart defect- Primary Family history of congenital anomalies Short interval between pregnancies complicating , antepartum Supervision of other high-risk History of Tytqm-Jkrogtayp-Gqtfn (WPW) syndrome Echogenic intracardiac focus of fetus on ultrasound Abnormal findings on screening 19 weeks gestation of state, incidental documented in this encounter Care Teams Director Case Relationship Specialty Start Date End Date José Bearden MD [address] [place] [address] PCP - General 03/27/04 documented as of this encounter
--- OUTSIDE RECORDS SUMMARY | 2024-06-12 11:41 | External Medical Summary | Summary of Care ---
Author Name Unknown Organization [facility] Address [address] [place] [address] Phone [phone] Care Team Providers Care Vamp Maker Name Role Phone José Bearden MD Primary Care Provider +1- [phone] Reason for Visit * Reason Comments Return Visit Encounter Details Date Type Department Care Team (Late st Contact Info) Description 03/03/2024 10:30 AM EDT Office Visit Gynecology/Obstetric s Solorioroberto Villanueva [address] [place] [place] [address] Ruthy Trevino CRNP [address] [place] [address] Normal in second trimester*; Short interval between pregnancies complicating , antepartum; Family history of congenital heart defect; Polyp of cervix; History of Vwmyk-Pggdgkeqv-Hwsbc (WPW) syndrome; Echogenic intracardiac focus of fetus on ultrasound Allergies Active Allergy Reactions Criticality Noted Date Comments Lactose Intolerance 12/06/2005 documented as of this encounter (statuses as of 03/03/2024) Medications Medication Sig Dispensed Refills Start Date End Date Status Fluticasone Propionate 50 MCG/ACT Nasal Suspension Administer 1 [place] into nostril in the morning. 0 Active [...] as of this encounter (statuses as of 03/03/2024) Active Problems Problem Noted Date Diagnosed Date [...] and it was ordered today. 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 Asymptomatic. Saw cardiology 12/04/22 who states ""The Ndisv-Tbynfznzq-Tblni he has been cured. She has no [...] as of this encounter (statuses as of 03/03/2024) Resolved Problems Problem Noted Date Diagnosed Date [...] repair at 4 months of age at [facility] [Doing well now, aged 9 years] -Declines [...] 11/04/2022 Other chronic allergic conjunctivitis 04/18/2008 11/04/2022 Kpkbb-Bbxxlpjfk-Ioqjl syndrome 12/24/2005 12/16/2023 Overview: - Luque Parkinson [...] -Declined genetic counseling -Per cardiology 12/04/22: "The Sydux-Zwmruebac-Eqbpt he has been cured. She has no [...] as of this encounter (statuses as of 03/03/2024) Immunizations Name Administration Dates Next Due DTWP [...] money to get more. Never true 01/22/2023 [place] Depression Scale Answer Date Recorded [place] Depression Scale Total 0 12/12/2023 The thought [...] Sign Reading Time Taken Comments Blood Pressure 106/58 03/03/2024 10:27 AM EDT Pulse - - Temperature - - Respiratory Rate - - Oxygen Saturation - - Inhaled Oxygen Concentration - - Weight 69.9 kg (154 lb) 03/03/2024 10:27 AM EDT Height 165.1 cm (5' 5") 03/03/2024 10:27 AM EDT Body Mass Index 25.63 03/03/2024 10:27 AM EDT documented in this encounter Progress Notes * Ruthy Trevino CRNP - 03/03/2024 10:39 AM EDT 21w5d Had anatomy u/s with MFM. EIF seen, but had low risk NIPT. Had GI bug last week, feeling a lot better now. Baby is active. No contractions, bleeding, LOF. BRIT Phillips * Buffy Falcon LPN - 03/03/2024 10:27 AM EDT 21w5d Denies any concerns documented in this encounter Plan of Treatment Upcoming Encounters Date Type Department Care Team (Late st Contact Info) Description 03/31/2024 10:30 AM EDT Office Visit Gynecology/Obstetrics Maddy Villanueva [address] [place] [phone] Ruthy Trevino CRNP [address] [place] [address] Health Maintenance Due Date Last Done Comments [...] cervix Mucous polyp of cervix History of Jhwlv-Ydzlbubvf-Rlraf (WPW) syndrome Echogenic intracardiac focus of fetus on ultrasound Abnormal findings on screening documented in this encounter Care Teams Vamp Maker Relationship Specialty Start Date End Date José Bearden MD [address] [place] [address] PCP - General 03/27/04 documented as of this encounter
--- OUTSIDE RECORDS SUMMARY | 2024-06-12 11:41 | External Medical Summary ---
Author Name Unknown Address Unknown Organization K01:LABORATORY [facility] [place] - [address] [place] [address] Laboratory Report Ordering Provider Test Date Status MEGAN JAIMES 04/14/2024 09:24:58 Final Observation Date Value Abnormality Reference (Units ) Status WBC, Total 04/14/2024 09:24:58 6.07 4.00-10.8 0 (K/uL) Final RBC 04/14/2024 09:24:58 2.91 3.85-5.15 (M/uL) Final Hemoglobin 04/14/2024 09:24:58 9.3 Below low normal 12 .0-15.3 (g/dL) Final Anemia reflex testing trigge rs on a HGB < 12.0 for Females and HGB < 13.0 for Males in accordance with the WHO Anemia Guidelines
Anemia reflex testing triggers on a HGB < 12.0 for Females and HGB < 13.0 for Males in accordance with the WHO Anemia Guidelines HCT 04/14/2024 09:24:58 29.1 Below low normal 36. 0-45.2 (%) Final MCV 04/14/2024 09:24:58 100.0 81.5-97.5 (fL) Final MCH 04/14/2024 09:24:58 32.0 27.0-34.0 (pg) Final MCHC 04/14/2024 09:24:58 32.0 32.0-36.0 (g/dL) Final RDW 04/14/2024 09:24:58 13.6 11.5-15.5 (%) Final Platelets 04/14/2024 09:24:58 215 140-400 (K /uL) Final MPV 04/14/2024 09:24:58 9.6 6.6-11.1 ( fL) Final Nucleated erythrocytes/100 leukocytes [Ratio] in Blood by Automated count 04/14/2024 09:24:58 0 <=0 (/100 WBCs) Fi [facility] Performing Location [facility] - [address] [facility] [address]
--- OUTSIDE RECORDS SUMMARY | 2024-06-12 11:41 | External Medical Summary ---
Author Name Unknown Address Unknown Organization K01:LABORATORY [facility] - [address] [place] [address] Laboratory Report Ordering Provider Test Date Status MEGAN JAIMES 04/14/2024 09:24:58 Final Observation Date Value Abnormality Reference (Units ) Status Folic Acid 04/14/2024 09:24:58 12.2 >4.5 (ng/ mL) Final Performing Location [facility] - [address] [place] [address]
--- OUTSIDE RECORDS SUMMARY | 2024-06-12 11:41 | External Medical Summary | Summary of Care ---
Author Name Unknown Organization [facility] Address [address] [place] [address] Phone [phone] Care Team Providers Care Auxiliary Power Equipment Operator Name Role Phone José Bearden MD Primary Care Provider +1- [phone] Reason for Visit * Reason Comments Outpatient Testing Encounter Details Date Type Department Care Team (Late st Contact Info) Description 02/18/2024 12:50 PM EDT Laboratory Laboratory, [facility] [address] [facility] [place] [phone] Vill[facility]vaLu[address] Alberto rashid [facility] [address] [facility] [place] [address] Echogenic intracardiac focus of fetus on ultrasound Allergies Active Allergy Reactions Criticality Noted Date Comments Lactose Intolerance 12/06/2005 documented as of this encounter (statuses as of 02/18/2024) Medications Medication Sig Dispensed Refills Start Date End Date Status Fluticasone Propionate 50 MCG/ACT Nasal Suspension Administer 1 [place] into nostril in the morning. 0 Active Ketotifen Fumarate 0.025 % Ophthalmic Solution 1 Drop in the morning and 1 Drop before bedtime. 0 Active Vitamin 27-0.8 MG Oral Tablet Take by mouth . 0 Active B-12 50 MCG Oral Tablet Take by mouth. 0 Active documented as of this encounter (statuses as of 02/18/2024) Active Problems Problem Noted Date Diagnosed Date [...] and it was ordered today. 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 Asymptomatic. Saw cardiology 12/04/22 who states ""The Frwnh-Sprxqrqhb-Llkny he has been cured. She has no [...] as of this encounter (statuses as of 02/18/2024) Resolved Problems Problem Noted Date Diagnosed Date [...] 11/04/2022 Other chronic allergic conjunctivitis 04/18/2008 11/04/2022 Rlypl-Ppwjecgey-Gwkyo syndrome 12/24/2005 12/16/2023 Overview: - Luque Parkinson [...] -Declined genetic counseling -Per cardiology 12/04/22: "The Uolgb-Admopeylh-Boqtu he has been cured. She has no [...] as of this encounter (statuses as of 02/18/2024) Immunizations Name Administration Dates Next Due DTWP [...] money to get more. Never true 01/22/2023 [place] Depression Scale Answer Date Recorded [place] Depression Scale Total 0 12/12/2023 The thought [...] Maddy Villanueva [address] [place] [address] Ruthy Trevino CRNP [address] [place] [address] Pending Results Name Type Priority Associated Diagnoses Date /Time QNATAL ADVANCED ([facility]) Lab Routine Echogenic intracardiac focus of fetus on ultrasound 02/18/2024 12:43 PM EDT Health Maintenance Due Date Last Done Comments Pneumococcal Vaccine: Pediatrics (0 to 5 Years) and At-Risk Patients (6 to 64 Years) (1 of 2 - PCV) 1996 GARDASIL-HPV IMMUNIZATION SERIES (3 - 3-dose series) 12/01/2009 08/01/2009, 05/31/2009 Depression Screening 09/13/2018 09/13/2017 COVID-19 Vaccine ( - 2022- season) 2023 Influenza Vaccine (FLU [...] as of this encounter Visit Diagnoses Diagnosis Echogenic intracardiac focus of fetus on ultrasound Abnormal findings on screening documented in this encounter Care Teams Auxiliary Power Equipment Operator Relationship Specialty Start Date End Date José Bearden MD [address] [place] [address] PCP - General 03/27/04 documented as of this encounter
--- OUTSIDE RECORDS SUMMARY | 2024-06-12 11:42 | External Medical Summary | Summary of Care ---
Author Name Unknown Organization [facility] Address [address] [place] [address] Phone [phone] Care Team Providers Care Base Filler Operator Name Role Phone José Bearden MD Primary Care Provider [phone]- [phone] Reason for Referral * Evaluate & Treat - Unlimited Visits (Within 10 days (routine)) - Pending Review Specialty Diagnoses / Procedures Referred By Will joyner Referred To Contact Medical Genetics / Hematology Oncology Diagnoses Family history of congenital heart defect Debra Lewis CRNP [address] [place] [address] Referral ID Status Reason Start Date Expiration Date Visits Requested Visits Authorized [id number] Pending Review Specialty Services Required 12/12/2023 999 999 Question Answer Referral Priority Within 10 days (routine) Where should this appointment be scheduled? [facility] Is this referral request related to one of the following genetics sub-specialties? If unsure of category, use Medical Genetics Ask-A-Doc. /Preconception Reason for Visit * Reason Onset Date Comments Referral 12/12/2023 Encounter Details Date Type Department Care Team ([facility] Contact Info) Description 12/12/2023 Telephone Tariff Counsel Obstetrics Maternal Medicine, [place] [address] [place] [address] [place], Nurse Tariff Counsel [facility] [address] [place] [address] Referral Allergies Active Allergy Reactions Criticality Noted Date Comments Lactose Intolerance 12/06/2005 documented as of this encounter (statuses as of 12/15/2023) Medications Medication Sig Dispensed Refills Start Date End Date Status Fluticasone Propionate 50 MCG/ACT Nasal Suspension Administer 1 [place] into nostril in the morning. 0 Active Ketotifen Fumarate 0.025 % Ophthalmic Solution 1 Drop in the morning and 1 Drop before bedtime. 0 Active Vitamin 27-0.8 MG Oral Tablet Take by mouth . 0 Active B-12 50 MCG Oral Tablet Take by mouth. 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 She likely attributes this to second trimester . -Declined genetic counseling -Per cardiology 12/04/22: "The Yygjg-Pqwetropi-Jmhex he has been cured. She has no history suggestive of any significant arrhythmias. No further evaluation is necessary. 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 She likely attributes this to second trimester . -Declined genetic counseling -Per cardiology 12/04/22: "The Cuhjb-Huphjrxyt-Mwibu he has been cured. She has no history suggestive of any significant arrhythmias. No further evaluation is necessary. She may proceed with delivery in the standard fashion without any restrictions" Last Assessment & Plan: Follow-up with cardiology scheduled. If any further medical management is needed, please advise so that we can determine whether growth surveillance is recommended. 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 Never true 01/22/2023 [place] Depression Scale Answer Date Recorded [place] Depression Scale Total 0 12/12/2023 The thought [...] Telephone Encounter - Reema Maradiaga CHRA - 12/15/2023 3:59 PM EST Spoke to the patient about her genetic counseling referral. The patient is not interested in a genetic counseling appointment at this time. Encouraged the patient to call if they have any questions or would like an appointment. Referral canceled. Respectfully, Reema Maradiaga Genetic Counseling Casing Fluid Tender Maternal Medicine/Transition Clinic For further questions call the Genetic Counselor at + . * Telephone Encounter - Phoebe Jimenez OSA - 12/12/2023 10:13 AM EST Appts scheduled with pt * Telephone Encounter - Geeta Badillo MED ASSIST - 12/12/2023 9:34 AM EST Estimated Date of Delivery: 07/09/24 Please schedule for 60 MINUTE CONSULT SIMPLE MEDICAL WITH FELLOW , in time frame of next available or at patient's earliest convenience at location [facility] with the indication of maternal kraig parkinson white, child w/VSD and ASD. Please schedule limited anatomy between 47g4f-56g8n weeks (12/23/23-01/08/24) Please schedule anatomy between 19-21 weeks (02/14/24-02/28/24). Genetics referral placed. Referring Provider: Vanda West CRNP documented in this encounter Plan of Treatment Upcoming Encounters Date Type Department Care Team (Late st Contact Info) Description 12/16/2023 2:00 PM EST Telemedicine [facility] Counsel Obstetrics Maternal Medicine, [address] [address] Allegra Martines, [facility] [place] [address] 12/23/2023 10:15 AM EST Office Visit Tariff Counsel Obstetrics Maternal Medicine, [address] [address] Dilia Renee, [facility] [address] 12/23/2023 10:15 AM EST Imaging Radiology [address] [address] 01/09/2024 8:30 AM EST Office Visit Gynecology/Obstetrics [facility] [address] [place] [address] Vanda West CRNP [address] [place] [address] 02/16/2024 10:30 AM EDT Office Visit Tariff Counsel Obstetrics Maternal Medicine, [address] [address] Taurus Acevedo, [facility] [place] [address] 02/16/2024 10:30 AM EDT Imaging Radiology [address] [address] Scheduled Referrals Name Type Priority Associated Diagnoses Orde r Schedule GENETICS REFERRAL OP Referral Within 10 days (routine) Family history of congenital heart defect Ordered: 12/12/2023 Health Maintenance Due Date Last Done Comments COVID-19 Vaccine (#1) 1990 Pneumococcal Vaccine: Pediatrics (0 to 5 Years) and At-Risk Patients (6 to 64 Years) (1 - PCV) 1996 GARDASIL-HPV IMMUNIZATION SERIES (3 - 3-dose series) 12/01/2009 08/01/2009, 05/31/2009 Depression Screening 09/13/2018 09/13/2017 HPV/Co-Test 2020 Cervical Cancer Screening 01/20/2023 Pap Smear 01/20/2023 01/20/2020, 12/02, 03/01/2013, Additional history exists Influenza Vaccine (FLU shot) (#1) 2023 DTaP,Tdap,and Td Vaccines (8 - Td or Tdap) 08/20/2023 08/20/2013, 12/24/2005, 06/19/1995, Additional history exists Hepatitis B Completed 04/14/2002, 01/2001, 05/19/2001 MENINGOCOCCAL (MENACTRA/MENVEO) Aged Out No longer eligible based on patient's age to complete this topic documented as of this encounter Medical Devices Not on filedocumented as of this encounter Visit Diagnoses Diagnosis Family history of congenital heart defect- Primary Family history of congenital anomalies documented in this encounter Care Teams Base Filler Operator Relationship Specialty Start Date End Date José Bearden MD [address] [place] [address] PCP - General 03/27/04 documented as of this encounter
--- OUTSIDE RECORDS SUMMARY | 2024-06-12 11:42 | External Medical Summary | Summary of Care ---
Author Name Unknown Organization [facility] Address [address] [place] [address] Phone [phone] Care Team Providers Care Associate Programmer Analyst Name Role Phone José Bearden MD Primary Care Provider +1- [phone] Reason for Visit * Reason Comments Return Visit Encounter Details Date Type Department Care Team (Late st Contact Info) Description 01/09/2024 8:30 AM EST Office Visit Gynecology/Obstetric s [facility] Villan[facility] [address] [place] [address] BackVanda baron CRNP [address] [place] [address] Normal in second trimester*; Short interval between pregnancies complicating , antepartum; Family history of congenital heart defect; Polyp of cervix; History of Bggrd-Bynduekfc-Wbqgi (WPW) syndrome Allergies Active Allergy Reactions Criticality Noted Date Comments Lactose Intolerance 12/06/2005 documented as of this encounter (statuses as of 01/09/2024) Medications Medication Sig Dispensed Refills Start Date End Date Status Fluticasone Propionate 50 MCG/ACT Nasal Suspension Administer 1 [place] into nostril in the morning. 0 Active Ketotifen Fumarate 0.025 % Ophthalmic Solution 1 Drop in the morning and 1 Drop before bedtime. 0 Active Vitamin 27-0.8 MG Oral Tablet Take by mouth . 0 Active B-12 50 MCG Oral Tablet Take by mouth. 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 Asymptomatic. Saw cardiology 12/04/22 who states ""The Tiqtk-Jizvtphpp-Msbzc he has been cured. She has no [...] as of this encounter (statuses as of 01/09/2024) Resolved Problems Problem Noted Date Diagnosed Date [...] repair at 4 months of age at [facility] [Doing well now, aged 9 [...] 11/04/2022 Other chronic allergic conjunctivitis 04/18/2008 11/04/2022 Xihat-Tjzrcsyrg-Aflca syndrome 12/24/2005 12/16/2023 Overview: - Luque Parkinson [...] -Declined genetic counseling -Per cardiology 12/04/22: "The Qtmcx-Qvucdmgym-Chovg he has been cured. She has no [...] as of this encounter (statuses as of 01/09/2024) Immunizations Name Administration Dates Next Due DTWP [...] money to get more. Never true 01/22/2023 [place] Depression Scale Answer Date Recorded [place] Depression Scale Total 0 12/12/2023 The thought [...] Sign Reading Time Taken Comments Blood Pressure 100/60 01/09/2024 8:35 AM EST Pulse - - Temperature - - Respiratory Rate - - Oxygen Saturation - - Inhaled Oxygen Concentration - - Weight 66.6 kg (146 lb 12.8 oz) 01/09/2024 8:35 AM EST Height - - Body Mass Index 24.43 12/12/2023 9:02 AM EST documented in this encounter Progress Notes * Carly Araiza LPN - 01/09/2024 8:35 AM EST 14w0d Denies vaginal bleeding/rom Absent movement No new concerns * Vanda West CRNP - 01/09/2024 8:34 AM EST 14w0d No pain/bleeding. May be feeling some flutters. Doing well. Had a consult with MFM, anatomy scan planned with them. Declines genetic screening. 4 week return BRIT Wiggins documented in this encounter Plan of Treatment Upcoming Encounters Date Type Department Care Team (Late st Contact Info) Description 02/06/2024 10:45 AM EST Office Visit [facility]s [facility] [place] [address] [facility]hy Trevino CR[facility] [place] [address] 02/16/2024 10:30 AM EDT Office Visit Search Planner Obstetrics Maternal Medicine, [place] [address] [place], [place] [id number] Taurus Acevedo DO [address], [place] [address] 02/16/2024 10:30 AM EDT Imaging Radiology [facility], [place] [address] [place], [place] [id number] Health Maintenance Due Date Last Done Comments COVID-19 Vaccine (#1) 1990 Pneumococcal Vaccine: Pediatrics (0 to 5 Years) and At-Risk Patients (6 to 64 Years) (1 - PCV) 1996 GARDASIL-HPV IMMUNIZATION SERIES (3 - 3-dose series) 12/01/2009 08/01/2009, 05/31/2009 Depression Screening 09/13/2018 09/13/2017 Influenza Vaccine (FLU shot) (#1) 2023 DTaP,Tdap,and [...] cervix Mucous polyp of cervix History of Xzhgu-Ebzgclohi-Atlth (WPW) syndrome documented in this encounter Care Teams Associate Programmer Analyst Relationship Specialty Start Date End Date José Bearden MD [address] [place] [address] PCP - General 03/27/04 documented as of this encounter
--- OUTSIDE RECORDS SUMMARY | 2024-06-12 11:42 | External Medical Summary | Summary of Care ---
Author Name Unknown Organization [facility] Address [address] [place] [address] Phone [phone] Care Team Providers Care Substation Operator Transforming Name Role Phone José Bearden MD Primary Care Provider +1- [phone] Reason for Visit * Reason Onset Date Comments Advice 01/09/2024 Encounter Details Date Type Department Care Team ([facility] st Contact Info) Description 01/09/[address] [phone] Gagan Kessler MD [address] [place] [phone] Advice Allergies Active Allergy Reactions Criticality Noted Date Comments Lactose Intolerance 12/06/2005 documented as of this encounter (statuses as of 01/12/2024) Medications Medication Sig Dispensed Refills Start Date End Date Status Fluticasone Propionate 50 MCG/ACT Nasal Suspension Administer 1 [place] into nostril in the morning. 0 Active Ketotifen Fumarate 0.025 % Ophthalmic Solution 1 Drop in the morning and 1 Drop before bedtime. 0 Active Vitamin 27-0.8 MG Oral Tablet Take by mouth . 0 Active B-12 50 MCG Oral Tablet Take by mouth. 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 Asymptomatic. Saw cardiology 12/04/22 who states ""The Fexzt-Cnhujxabv-Flrjy he has been cured. She has no [...] as of this encounter (statuses as of 01/12/2024) Resolved Problems Problem Noted Date Diagnosed Date [...] 4 months of age at [facility] [Doing well now, aged 9 [...] 11/04/2022 Other chronic allergic conjunctivitis 04/18/2008 11/04/2022 Bnhsl-Pgnkjcjyb-Jenzt syndrome 12/24/2005 12/16/2023 Overview: - Luque Parkinson [...] -Declined genetic counseling -Per cardiology 12/04/22: "The Siaqo-Ybcbtywoo-Tscfq he has been cured. She has no [...] as of this encounter (statuses as of 01/12/2024) Immunizations Name Administration Dates Next Due DTWP [...] money to get more. Never true 01/22/2023 [place] Depression Scale Answer Date Recorded [place] Depression Scale Total 0 12/12/2023 The thought [...] Miscellaneous Notes * Telephone Encounter - Geeta Juárez, SONA - 01/12/2024 11:08 AM EST Omid calling to check on the status of the form. Advised that form will be completed and faxed once received. * Telephone Encounter - Ayaan Boyle OSA - 01/09/2024 9:30 AM EST Will fax records once request form is received * Telephone Encounter - Nicole Vasquez LPN - 01/09/2024 8:52 AM EST Was this form received? * Telephone Encounter - Geeta Juárez LPN - 01/09/2024 8:37 AM EST Liliana calling in from [employer] Asking if a medical records release form was received. She is looking to receive records regarding patients appointment with Dr. Kessler on 10/03/2023. She faxed form to [phone] on 01/08/2024. Call back number: [phone] documented in this encounter Plan of Treatment Upcoming Encounters Date Type Department Care Team (Late st Contact Info) Description 02/06/2024 10:45 AM EST Office Visit Gynecology/Obstetrics [facility] [address] [place] [address] Ruthy Trevino CRNP [address] [place] [address] 02/16/2024 10:30 AM EDT Office Visit Chinese Teacher Obstetrics Maternal Medicine, [place] [address] [place] [address] Taurus Acevedo DO [address] [place] [address] 02/16/2024 10:30 AM EDT Imaging Radiology [facility] [address] [place] [address] Health Maintenance Due Date Last Done Comments [...] filedocumented as of this encounter Care Teams Substation Operator Transforming Relationship Specialty Start Date End Date José Bearden MD [address] [place] [address] PCP - General 03/27/04 documented as of this encounter
--- OUTSIDE RECORDS SUMMARY | 2024-06-12 11:42 | External Medical Summary | Summary of Care ---
Author Name Unknown Organization [facility] Address [address] [place] [address] Phone [phone] Care Team Providers Care Elevator Mechanic Apprentice Name Role Phone José Bearden MD Primary Care Provider +1- [phone] Reason for Visit * Reason Onset Date Comments Advice 01/09/2024 Encounter Details Date Type Department Care Team ([facility] st Contact Info) Description 01/09/[address] [phone] Gagan Kessler MD [address] [place] [phone] Advice Allergies Active Allergy Reactions Criticality Noted Date Comments Lactose Intolerance 12/06/2005 documented as of this encounter (statuses as of 01/15/2024) Medications Medication Sig Dispensed Refills Start Date End Date Status Fluticasone Propionate 50 MCG/ACT Nasal Suspension Administer 1 [place] into nostril in the morning. 0 Active Ketotifen Fumarate 0.025 % Ophthalmic Solution 1 Drop in the morning and 1 Drop before bedtime. 0 Active Vitamin 27-0.8 MG Oral Tablet Take by mouth . 0 Active B-12 50 MCG Oral Tablet Take by mouth. 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 Asymptomatic. Saw cardiology 12/04/22 who states ""The Renop-Edlfejryk-Blijr he has been cured. She has no [...] as of this encounter (statuses as of 01/15/2024) Resolved Problems Problem Noted Date Diagnosed Date [...] repair at 4 months of age at [facility] [Doing well now, aged 9 [...] 11/04/2022 Other chronic allergic conjunctivitis 04/18/2008 11/04/2022 Vqhxe-Betxoykvc-Mgbkz syndrome 12/24/2005 12/16/2023 Overview: - Luque Parkinson [...] -Declined genetic counseling -Per cardiology 12/04/22: "The Qplqu-Jtvqmemjh-Jxtzg he has been cured. She has no [...] as of this encounter (statuses as of 01/15/2024) Immunizations Name Administration Dates Next Due DTWP [...] money to get more. Never true 01/22/2023 [place] Depression Scale Answer Date Recorded [place] Depression Scale Total 0 12/12/2023 The thought [...] encounter Miscellaneous Notes * Telephone Encounter - Nadine Murillo LPN - 01/15/2024 1:51 PM EST Liliana from [employer] is calling to check on the status of medical records request. Needs office visit notes, labs, EKGs and test results from 2019-present that involves provider DR. Gagan Kessler to assist the pt with getting [facility] [employer] insurance. Call was transferred to medical records. * Telephone Encounter - Jacquelin Bettencourt LPN - 01/14/2024 12:14 PM EST See encounter from 01/14. Was meant for [place] * Telephone Encounter - Nadine Murillo LPN - 01/14/2024 9:27 AM EST Liliana from [employer] is calling. Is asking if the office received the medical records request. Made her aware that we have not received this yet. States that this was faxed to [phone] on 01/08/24 and 01/13/24. Will fax request again to [phone]. MARGUERITEI. * Telephone Encounter - Ayaan Boyle OSA - 01/13/2024 12:55 PM EST Nothing currently in medical records folder at front end manager. Did anyone take care of this? * Telephone Encounter - Nicole Vasquez LPN - 01/13/2024 9:40 AM EST Was this received? * Telephone Encounter - Geeta Juárez LPN - 01/13/2024 9:32 AM EST Liliana calling to check on the status of the form. Advised that form will be completed and faxed once received. * Telephone Encounter - Geeta Juárez LPN - 01/12/2024 11:08 AM EST Omid calling [...] 8:37 AM EST Liliana calling in from [employer] Asking if a medical records release form was received. She is looking to receive records regarding patients appointment with Dr. Kessler on 10/03/2023. She faxed form to [phone] on 01/08/2024. Call back number: [phone] documented in this encounter Plan of Treatment Upcoming Encounters Date Type Department Care Team (Late st Contact Info) Description 02/06/2024 10:45 AM EST Office Visit Gynecology/Obstetrics [facility] [address] [place] [address] Ruthy Trevino CRNP [address] [place] [address] 02/16/2024 10:30 AM EDT Office Visit [employer] Platemaker Obstetrics Maternal Medicine, [place] [address] [place] [address] Taurus Acevedo, [address] [place] [address] 02/16/2024 10:30 AM EDT Imaging Radiology [facility] [place] [address] [place] [address] Health Maintenance Due Date Last Done Comments [...] as of this encounter Care Teams Elevator Mechanic Apprentice Relationship Specialty Start Date End Date José Bearden MD [address] [place] [address] PCP - General 03/27/04 documented as of this encounter
--- OUTSIDE RECORDS SUMMARY | 2024-06-12 11:42 | External Medical Summary | Summary of Care ---
Author Name Unknown Organization [facility] Address [address] [place] [address] Phone [phone] Care Team Providers Care Bioinformatics Computer Scientist Name Role Phone José Bearden MD Primary Care Provider +1- [phone] Reason for Visit * Reason Onset Date Comments Advice 01/09/2024 Encounter Details Date Type Department Care Team ([facility] st Contact Info) Description 01/09/[address] [phone] Gagan Kessler MD [address] [place] [phone] Advice Allergies Active Allergy Reactions Criticality Noted Date Comments Lactose Intolerance 12/06/2005 documented as of this encounter (statuses as of 01/13/2024) Medications Medication Sig Dispensed Refills Start Date End Date Status Fluticasone Propionate 50 MCG/ACT Nasal Suspension Administer 1 [place] into nostril in the morning. 0 Active Ketotifen Fumarate 0.025 % Ophthalmic Solution 1 Drop in the morning and 1 Drop before bedtime. 0 Active Vitamin 27-0.8 MG Oral Tablet Take by mouth . 0 Active B-12 50 MCG Oral Tablet Take by mouth. 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 Asymptomatic. Saw cardiology 12/04/22 who states ""The Tfvxo-Ldmcuvtxa-Bdydv he has been cured. She has no [...] as of this encounter (statuses as of 01/13/2024) Resolved Problems Problem Noted Date Diagnosed Date [...] 11/04/2022 Other chronic allergic conjunctivitis 04/18/2008 11/04/2022 Bycxa-Rzppmlerf-Fcqjv syndrome 12/24/2005 12/16/2023 Overview: - Luque Parkinson [...] -Declined genetic counseling -Per cardiology 12/04/22: "The Vivuj-Ibhvuehpv-Fekdt he has been cured. She has no [...] as of this encounter (statuses as of 01/13/2024) Immunizations Name Administration Dates Next Due DTWP [...] money to get more. Never true 01/22/2023 [place] Depression Scale Answer Date Recorded [place] Depression Scale Total 0 12/12/2023 The thought [...] Telephone Encounter - Geeta Juárez, SONA - 01/13/2024 9:32 AM EST Liliana calling [...] 8:37 AM EST Liliana calling in from [facility] Asking if a medical records release form was received. She is looking to receive records regarding patients appointment with Dr. Kessler on 10/03/2023. She faxed form to [phone] on 01/08/2024. Call back number: [phone] documented in this encounter Plan of Treatment Upcoming Encounters Date Type Department Care Team (Late st Contact Info) Description 02/06/2024 10:45 AM EST Office Visit [facility]necology[facility] [address] [place] [address] Ruthy Trevino CRNP [address] [place] [address] 02/16/2024 10:30 AM EDT Office Visit Cloth Boil [employer] Machine Operator Obstetrics Maternal Medicine, [place] [address] [place] [address] Taurus Acevedo, [address] [place] [address] 02/16/2024 10:30 AM EDT [facility], [place] [address] [place] [address] Health Maintenance Due Date Last Done Comments [...] HPV/Co-Test 12/12/2028 12/12/2023 Hepatitis B Completed 04/14/2002, 08/0 01/2001, 05/19/2001 MENINGOCOCCAL (MENACTRA/MENVEO) Aged Out No longer eligible based on patient's age to complete this topic documented as of this encounter Medical Devices Not on filedocumented as of this encounter Care Teams Bioinformatics Computer Scientist Relationship Specialty Start Date End Date José Bearden MD [address] [place] [address] PCP - General 03/27/04 documented as of this encounter
--- OUTSIDE RECORDS SUMMARY | 2024-06-12 11:42 | External Medical Summary | Summary of Care ---
Author Name Unknown Organization [facility] Address [address] [place] [address] Phone [phone] Care Team Providers Care Ip Network Architect Name Role Phone José Bearden MD Primary Care Provider [phone]- [phone] Reason for Visit * Reason Onset Date Comments FYI 01/14/2024 Encounter Details Date Type Department Care Team (Late st Contact Info) Description 01/14/2024 Telephone [facility] [address] [place] [address] José Bearden MD [address] [place] [address] FYI Allergies Active Allergy Reactions Criticality Noted Date Comments Lactose Intolerance 12/06/2005 documented as of this encounter (statuses as of 01/14/2024) Medications Medication Sig Dispensed Refills Start Date End Date Status Fluticasone Propionate 50 MCG/ACT Nasal Suspension Administer 1 [place] into nostril in the morning. 0 Active Ketotifen Fumarate 0.025 % Ophthalmic Solution 1 Drop in the morning and 1 Drop before bedtime. 0 Active Vitamin 27-0.8 MG Oral Tablet Take by mouth . 0 Active B-12 50 MCG Oral Tablet Take by mouth. 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 Asymptomatic. Saw cardiology 12/04/22 who states ""The Pqytz-Zhebrdctd-Cdchb he has been cured. She has no [...] as of this encounter (statuses as of 01/14/2024) Resolved Problems Problem Noted Date Diagnosed Date [...] 11/04/2022 Other chronic allergic conjunctivitis 04/18/2008 11/04/2022 Saxnp-Nrktwgrfh-Fsdpo syndrome 12/24/2005 12/16/2023 Overview: - Luque Parkinson [...] -Declined genetic counseling -Per cardiology 12/04/22: "The Ukwzr-Kvmxthkjh-Giojx he has been cured. She has no [...] as of this encounter (statuses as of 01/14/2024) Immunizations Name Administration Dates Next Due DTWP [...] money to get more. Never true 01/22/2023 [place] Depression Scale Answer Date Recorded [place] Depression Scale Total 0 12/12/2023 The thought [...] encounter Miscellaneous Notes * Telephone Encounter - Antoinette Bermudez OSA - 01/14/2024 10:00 AM EST [facility]. It is STAT. I faxed to [phone]. Then I also Sent to [id number] documented in this encounter Plan of Treatment Upcoming Encounters Date Type Department Care Team (Late st Contact Info) Description 02/06/2024 10:45 AM EST Office Visit Gynecology/Obstetrics [facility] [address] [place] [address] Ruthy Trevino CRNP [address] [place] [address] 02/16/2024 10:30 AM EDT Office Visit Laboratory Asst Obstetrics Maternal Medicine, [place] [address] [place] [address] Taurus Acevedo, [address] [place] [address] 02/16/2024 10:30 AM EDT Imaging Radiology [facility], [place] [address] [place] [address] Health Maintenance Due Date Last Done Comments [...] filedocumented as of this encounter Care Teams Ip Network Architect Relationship Specialty Start Date End Date José Bearden MD [address] [place] [address] PCP - General 03/27/04 documented as of this encounter
--- OUTSIDE RECORDS SUMMARY | 2024-06-12 11:42 | External Medical Summary | Summary of Care ---
Author Name Unknown Organization [facility] Address [address] [place] [address] Phone [phone] Care Team Providers Care Pole Maker Name Role Phone José Bearden MD Primary Care Provider +1- [phone] Reason for Visit * Evaluate & Treat - Unlimited Visits (Within 10 days (routine)) - Authorized Specialty Diagnoses / Procedures Referred By Will t Referred To Contact Obstetrics/Gynecology / Maternal Medicine Diagnoses Maternal congenital cardiac anomaly, antepartum Backer, BRIT Sarmiento [address] [place] [address] Referral ID Status Reason Start Date Expiration Date Visits Requested Visits Authorized [id number] Authorized Specialty Services Required 12/12/2023 12/12/2024 [id number] Encounter Details Date Type Department Care Team (Late st Contact Info) Description 12/16/2023 2:00 PM EST Telemedicine [employer] Obstetrics Maternal Medicine, [place] [address], [place] [phone] Allegra Martines, [address], [place] [phone] 10 weeks gestation of *; Short interval between pregnancies complicating , antepartum; Family history of congenital heart defect; History of Itlgx-Nppierfns-Ofgqv (WPW) syndrome Allergies Active Allergy Reactions Criticality Noted Date Comments Lactose Intolerance 12/06/2005 documented as of this encounter (statuses as of 12/16/2023) Medications Medication Sig Dispensed Refills Start Date End Date Status Fluticasone Propionate 50 MCG/ACT Nasal Suspension Administer 1 [place] into nostril in the morning. 0 Active Ketotifen Fumarate 0.025 % Ophthalmic Solution 1 Drop in the morning and 1 Drop before bedtime. 0 Active Vitamin 27-0.8 MG Oral Tablet Take by mouth . 0 Active B-12 50 MCG Oral Tablet Take by mouth. 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 Asymptomatic. Saw cardiology 12/04/22 who states ""The Sfvmi-Srnuquwdi-Hhwwy he has been cured. She has no [...] as of this encounter (statuses as of 12/16/2023) Resolved Problems Problem Noted Date Diagnosed Date [...] repair at 4 months of age at [facility] [Doing well now, aged 9 [...] 11/04/2022 Other chronic allergic conjunctivitis 04/18/2008 11/04/2022 Conjy-Ddpkxnkda-Juqvs syndrome 12/24/2005 12/16/2023 Overview: - Luque Parkinson [...] -Declined genetic counseling -Per cardiology 12/04/22: "The Xzstf-Iusvihdto-Fwdro he has been cured. She has no [...] as of this encounter (statuses as of 12/16/2023) Immunizations Name Administration Dates Next Due DTWP [...] money to get more. Never true 01/22/2023 [place] Depression Scale Answer Date Recorded [place] Depression Scale Total 0 12/12/2023 The thought [...] as of this encounter Progress Notes * Allegra Martines DO - 12/16/2023 2:00 PM EST MATERNAL MEDICINE CONSULT Patient location: HOME. I was in a hospital or clinic location. After connecting through televideo,patient was verified with two unique identifiers. Patient (or authorized legal product support representative) was then informed that this was a Telemedicine visit and being conducted confidentially over secure lines. Methods to assure confidentiality were taken. Patient acknowledged consent and understanding of pr ivacy and security of the Telemedicine visit. The patient agreed to participate. Lyndsey Wesley 12/16/2023 REFERRING PROVIDER: BRIT Rosado Lyndsey is a 33 year old with intrauterine at 10w4d who presents today for an MFM consult due to fhx congenital cardiac defect. HPI/CURRENT : pre- BMI=normal (142#; 5'5"); FOB #2; complicated by: [id number] Problems (from 12/05/23 to present) Problem Noted Resolved History of Whtge-Gadgtdipc-Akrfb (WPW) syndrome 12/16/2023 by Allegra Martines DO No Overview Addendum 12/16/2023 3:00 PM by Allegra Martines DO S/p cardiac ablation 2005. Asymptomatic. Saw cardiology 12/04/22 who states ""The Lfcbk-Jgjvltmnp-Ptigq he has been cured. She has no history suggestive of any significant arrhythmias. No further evaluation is necessary. She may proceed with delivery in the standard fashion without any restrictions" Normal 12/12/2023 by Vanda West CRNP No Short interval between pregnancies complicating , antepartum 12/12/2023 by Fran West CRNP No Overview Signed 12/12/2023 9:18 AM by Vanda West CRNP Last delivery 03/2023 Family history of congenital heart defect 12/12/2023 by Vanda West CRNP No Overview Addendum 12/16/2023 3:01 PM by Allegra Martines DO G1 daughter with ASD/VSD, requiring open heart surgery. Polyp of cervix 12/12/2023 by Vanda West CRNP No Overview Signed 12/12/2023 9:32 AM by Vanda West CRNP Noted on exam at [facility] Cell-free DNA (cffDNA) screening is a genetic screening option that analyzes maternal blood for DNA that is placental in origin and targets the following conditions: Trisomy 21 (Down syndrome),trisomy 18, trisomy 13, and sex chromosome abnormalities such as monosomy X (Son syndrome), and sex chromosome trisomies (triple X, Klinefelter syndrome, XYY). It may also evaluate for other genetic alterations such as microdeletions, depending on the specific test. It reveals the sex of the fetus but should generally not be performed solely for this indication. The screening test can be performed after 10 weeks gestation. Patient declines genetic screening at this time. I have reviewed this patient's previous OB ultrasound reports, pertinent labwork and testing provided by her referring OB provider. Current Outpatient Medications Medication Sig Dispense Refill Fluticasone Propionate 50 MCG/ACT Nasal Suspension Administer 1 [place] into nostril in the morning. Ketotifen Fumarate 0.025 % Ophthalmic Solution 1 Drop in the morning and 1 Drop before bedtime. Vitamin 27-0.8 MG Oral Tablet Take by mouth . B-12 50 MCG Oral Tablet Take by mouth. No current facility-administered medications for this visit. OB History Para Term AB Living 3 2 2 0 0 2 SAB IAB Ectopic Multiple Live Births 0 0 0 0 2 # Outcome Date GA Lbr Stephen/2nd Weight Sex Delivery Anes PTL Lv 3 Current 2 Term 03/29/23 37w5d 3.175 kg (7 lb) M Vag-Spont NAYANA 1 Term 10/09/13 37w5d 10:00 2.637 kg (5 lb 13 oz) F Vag-Spont EPI [place] Comments: 2nd degree perineal Obstetric Comments FOB#2, Justin Wesley-1 son outside of relationship, healthy Review of patient's allergies indicates: Allergen Reactions Milk [Lactose Intolerance] Past Medical History: Diagnosis Date Antepartum anemia 2022 Varicella without complication 01/01/1996 Jdrzp-Ifpiylfdc-Acqlv syndrome 12/01/2005 s/p ablation [facility] Past Surgical History: Procedure Laterality Date ABLATE HEART DYSRHYTHM FOCUS 12/06 [facility] DENTAL SURGERY PROCEDURE NEC 18yoa wisdom teeth LEVONORGESTREL RELEASING IUD 13.5 MG 01/28/2017 Family History Problem Relation Age of Onset No Past Hx Mother Allergies Father allergic rhinitis Allergies Brother hayfever Hypertension Grandmother (Maternal) No Known Problems Grandfather (Maternal) No Known Problems Grandmother (Paternal) Atrial fibrillation Grandfather (Paternal) Congenital heart disease Child ASD, VSD s/p repair at 4 months Other (Other) Other multiple relatives with gb issues at young age Anemia Other Heart defect Aunt (Paternal) required ablation Social History Tobacco Use Smoking status: Never Smokeless tobacco: Never Tobacco comments: no passive smoke exposure Vaping Use Vaping Use: Never used Substance Use Topics Alcohol use: Not Currently Comment: socially Drug use: No Social History Substance and Sexual Activity Drug Use No REVIEW OF SYSTEMS: headaches: no nausea/vomiting: denies reports movement: no abdominal pain/tenderness/cramping/contractions: no vaginal bleeding: no vaginal leaking of fluid: no leg pain/tenderness: no all other systems negative PHYSICAL EXAM: General: pleasant, alert and oriented DISCUSSION/RECOMMENDATIONS: 10 weeks gestation of Short interval between pregnancies complicating , antepartum Assessment & Plan: CONSIDERATIONS: Reviewed that a short Inter- Interval (IPI) may place the patient at an increased risk forpreterm , low weight, and SGA . IPI is defined as less than a year from the time ofdelivery of one to conception of the next [...] or other complications. Small observational studies have shownno benefit to delayed conception after early loss. After a stillbirth, we suggest women wait at least 6 months before conceiving again. After a delivery, we suggest women wait 12 months before conceiving again. Interdelivery interval (IDI) of 18 to 24 months have not been significantly associated with maternal morbidity in women undergoing Trial of Labor After . Family history of congenital heart defect Assessment & Plan: Family history of congenital [...] weeks gestation. -Recommend echo around 22 weeks. History of Nydqh-Drcaytppx-Xbsvb (WPW) syndrome Assessment & Plan: Discussion 1. Arrhythmia that [...] Recommend limiting caffeine intake and other stimulants. Allegra Martines DO 12/16/2023 3:01PM I have discussed the patient's management with the medical trainee and agree with the note. Please refer to the documented findings and plan of care. This patient's visit today consisted of a telemedicine visit using real time audio/video technology. I did not personally interact with this patient. Dilia Renee DO documented in this encounter Miscellaneous Notes * Assessment & Plan Note - Allegra Martines DO - 12/16/2023 3:00 PM EST Associated Problem(s): History of Afycm-Xobwduyyq-Wnjpy (WPW) syndrome Discussion 1. Arrhythmia that occurs in the [...] Recommend limiting caffeine intake and other stimulants. * Assessment & Plan Note - Allegra Martines DO - 12/16/2023 9:16 AM ESTAssociated Problem(s): Family history of congenital heart defect Family history of congenital heart defect: - [...] weeks gestation. -Recommend echo around 22 weeks. * Assessment & Plan Note - Allegra Martines DO - 12/16/2023 9:15 AM EST Associated Problem(s): Short interval between pregnancies complicating , antepartum CONSIDERATIONS: Reviewed that a short Inter- Interval (IPI) may place the patient at an increased risk forpreterm , low weight, and SGA . IPI is defined as less than a year from the time ofdelivery of one to conception of the next [...] or other complications. Small observational studies have shownno benefit to delayed conception after early loss. After a stillbirth, we suggest women wait at least 6 months before conceiving again. After a delivery, we suggest women wait 12 months before conceiving again. Interdelivery interval (IDI) of 18 to 24 months have not been significantly associated with maternal morbidity in women undergoing Trial of Labor After . * Assessment & Plan Note - Allegra Martines DO - 12/16/2023 9:15 AM EST Associated Problem(s): Maternal congenital cardiac anomaly, antepartum (Deleted) Discussion 1. Arrhythmia that occurs in the [...] Recommend limiting caffeine intake and other stimulants. documented in this encounter Plan of Treatment Upcoming Encounters Date Type Department Care Team (Late st Contact Info) Description 12/23/2023 10:15 AM EST Office Visit [employer] Obstetrics Maternal Medicine, [address] [address] Dilia Renee DO [address] [place] [address] 12/23/2023 10:15 AM EST [facility], [place] [address] [place] [address] 01/09/2024 8:30 AM EST Office Visit Gynecology/Obstetrics [facility] [address] [place] [address] Vanda West CRNP [address] [place] [address] 02/16/2024 10:30 AM EDT Office Visit [employer] Obstetrics Maternal Medicine, [place] [address] [place] [address] Curtis Taurus Ramos, [address] [place] [address] 02/16/2024 10:30 AM EDT Imaging [facility], [place] [address], [place] [phone] Scheduled Referrals Name Type Priority Associated Diagnoses Orde r Schedule MATERNAL MEDICINE REFERRAL OP Referral Within 10 days (routine) Maternal congenital cardiac anomaly, antepartum Ordered: 12/12/2023 Health Maintenance Due Date Last [...] as of this encounter Visit Diagnoses Diagnosis 10 weeks gestation of - Primary state, incidental Short interval between pregnancies complicating , antepartum Supervision of other high-risk Family history of congenital heart defect Family history of congenital anomalies History of Iljil-Ulbimbdqp-Mrmxl (WPW) syndrome documented in this encounter Care Teams Pole Maker Relationship Specialty Start Date End Date José Bearden MD [address] [facility] [place] [id number] PCP - General 03/27/04 documented as of this encounter
--- OUTSIDE RECORDS SUMMARY | 2024-06-12 11:42 | External Medical Summary | Summary of Care ---
Author Name Unknown Organization [facility] Address [address] [place] [address] Phone [phone] Care Team Providers Care Clinical Biostatistician Name Role Phone José Bearden MD Primary Care Provider +1- [phone] Reason for Visit * Reason Comments Ultrasound Encounter Details Date Type Department Care Team (Late st Contact Info) Description 12/23/2023 10:15 AM EST Office Visit Business Office Director Obstetrics Maternal Medicine, [place] [address] [place] [address] Dilai Renee, [address] [place] [address] Family history of congenital heart defect*; 11 weeks gestation of ; Other specified related conditions, third trimester Allergies Active Allergy Reactions Criticality Noted Date Comments Lactose Intolerance 12/06/2005 documented as of this encounter (statuses as of 12/23/2023) Medications Medication Sig Dispensed Refills Start Date End Date Status Fluticasone Propionate 50 MCG/ACT Nasal Suspension Administer 1 [place] into nostril in the morning. 0 Active Ketotifen Fumarate 0.025 % Ophthalmic Solution 1 Drop in the morning and 1 Drop before bedtime. 0 Active Vitamin 27-0.8 MG Oral Tablet Take by mouth . 0 Active B-12 50 MCG Oral Tablet Take by mouth. 0 Active documented as of this encounter (statuses as of 12/23/2023) Active Problems Problem Noted Date Diagnosed Date History of Qzwai-Gjhidqaus-Jzrsu (WPW) syndrome 12/16/2023 Overview: S/p cardiac ablation 2005. Asymptomatic. Saw cardiology 12/04/22 who states ""The Ycqeb-Deaipmtiy-Olurg he has been cured. She has no [...] as of this encounter (statuses as of 12/23/2023) Resolved Problems Problem Noted Date Diagnosed Date [...] repair at 4 months of age at [facility] [Doing well now, aged 9 years] -Declines [...] 11/04/2022 Other chronic allergic conjunctivitis 04/18/2008 11/04/2022 Avsfe-Qkfwvvfjk-Qgdjn syndrome 12/24/2005 12/16/2023 Overview: - Luque Parkinson [...] -Declined genetic counseling -Per cardiology 12/04/22: "The Lbqty-Dlibmvqrk-Tqmjj he has been cured. She has no [...] as of this encounter (statuses as of 12/23/2023) Immunizations Name Administration Dates Next Due DTWP [...] money to get more. Never true 01/22/2023 [place] Depression Scale Answer Date Recorded [place] Depression Scale Total 0 12/12/2023 The thought [...] as of this encounter Progress Notes * Dilia Renee, - 12/23/2023 10:44 AM EST Lyndsey presented today at 11w4d for an ultrasound for the following indications: Family history of congenital heart defect 11 weeks gestation of Ultrasound summary: Single live IUP at 11w 4d consistent with dates. No evidence of cystic hygroma or early abnormalities. I reviewed the ultrasound images. Lyndsey was given the opportunity to meet with me if she had any questions. Please refer to the ultrasound report for additional details about today's ultrasound examination. RECOMMENDATIONS: Recommend follow up ultrasound with MFM in 8 weeks for anatomy survey secondary to above indications. See prior formal MFM consultation note. Thank you for allowing us to participate in the care of this patient. Please call with any questions. Dilia Renee DO 12/23/2023 10:44 AM documented in this encounter Plan of Treatment Upcoming Encounters Date Type Department Care Team (Late st Contact Info) Description 01/09/2024 8:30 AM EST Office Visit Gynecology/Obstetrics [facility] [address] [facility] [place] [address] Vanda West CRNP [address] [facility] [place] [address] 02/16/2024 10:30 AM EDT Office Visit Business Office Director Obstetrics Maternal Medicine, [place] [address] [place] [address] Taurus Acevedo DO [address] [place] [address] 02/16/2024 10:30 AM EDT Imaging Radiology [place] [address] [place], [place] [phone] Scheduled Orders Name Type Priority Associated Diagnoses Orde r Schedule MFM US MATERNAL 1ST FETUS Medical Imaging Routine Family history of congenital heart defect 11 weeks gestation of Other specified related conditions, third trimester Expected: 12/23/2023, Expires: 01/23/2025 Health Maintenance Due Date Last Done Comments [...] defect- Primary Family history of congenital anomalies 11 weeks gestation of state, incidental Other specified related conditions, third trimester documented in this encounter Care Teams Clinical Biostatistician Relationship Specialty Start Date End Date José Bearden MD [address] [place] [address] PCP - General 03/27/04 documented as of this encounter
--- OUTSIDE RECORDS SUMMARY | 2024-06-12 11:42 | External Medical Summary | Summary of Care ---
Author Name Unknown Organization [facility] Address [address] [place] [address] Phone [phone] Care Team Providers Care Montessori Toddler Teacher Name Role Phone José Bearden MD Primary Care Provider +1- [phone] Reason for Visit * Reason Onset Date Comments Advice 01/09/2024 Encounter Details Date Type Department Care Team ([facility] st Contact Info) Description 01/09/[address] [phone] Gagan Kessler MD [address] [place] [phone] Advice Allergies Active Allergy Reactions Criticality Noted Date Comments Lactose Intolerance 12/06/2005 documented as of this encounter (statuses as of 01/13/2024) Medications Medication Sig Dispensed Refills Start Date End Date Status Fluticasone Propionate 50 MCG/ACT Nasal Suspension Administer 1 [place] into nostril in the morning. 0 Active [...] Problem Noted Date Diagnosed Date History of Jnnip-Cmulowqmw-Ljcyd (WPW) syndrome 12/16/2023 Overview: S/p cardiac ablation 2006. Asymptomatic. Saw cardiology 12/04/22 who states ""The Wyteb-Khxncoulq-Zzqzt he has been cured. She has no [...] 11/04/2022 Other chronic allergic conjunctivitis 04/18/2008 11/04/2022 Reaka-Vwvdvytbp-Kssid syndrome 12/24/2005 12/16/2023 Overview: - Luque Parkinson [...] -Declined genetic counseling -Per cardiology 12/04/22: "The Dfshz-Mwgmnvcro-Mvvrs he has been cured. She has no [...] money to get more. Never true 01/22/2023 [place] Depression Scale Answer Date Recorded [place] Depression Scale Total 0 12/12/2023 The thought [...] encounter Miscellaneous Notes * Telephone Encounter - Nicole Vasquez LPN [...] 8:37 AM EST Liliana calling in from [employer] Asking if a medical records release form was received. She is looking to receive records regarding patients appointment with Dr. Kessler on 10/03/2023. She faxed form to [phone] on 01/08/2024. Call back number: [phone] documented in this encounter Plan of Treatment Upcoming Encounters Date Type Department Care Team (Late st Contact Info) Description 02/06/2024 10:45 AM EST Office Visit Gynecology/Obstetrics Maddy Villanueva [address] [facility] [place] [address] Ruthy Trevino CRNP [address] [facility] [address] 02/16/2024 10:30 AM EDT Office Visit Behavioral Interventionist Obstetrics [facility]aternal [facility], [place] [address] [place] [address] Taurus Acevedo, [address] [place] [address] 02/16/2024 10:30 AM EDT Imaging Radiology [facility], [place] [address] [place], [place] [id number] Health Maintenance Due Date Last Done Comments [...] filedocumented as of this encounter Care Teams Montessori Toddler Teacher Relationship Specialty Start Date End Date José Bearden MD [address] [place] [address] PCP - General 03/27/04 documented as of this encounter
--- OUTSIDE RECORDS SUMMARY | 2024-06-12 11:42 | External Medical Summary | Summary of Care ---
Author Name Unknown Organization [facility] Address [address] [place] [address] Phone [phone] Care Team Providers Care Melter Loader Name Role Phone José Bearden MD Primary Care Provider +1- [phone] Reason for Visit * Reason Onset Date Comments Advice 01/09/2024 Encounter Details Date Type Department Care Team ([facility] st Contact Info) Description 01/09/[address] [phone] Gagan Kessler MD [address] [place] [phone] Advice Allergies Active Allergy Reactions Criticality Noted Date Comments Lactose Intolerance 12/06/2005 documented as of this encounter (statuses as of 01/13/2024) Medications Medication Sig Dispensed Refills Start Date End Date Status Fluticasone Propionate 50 MCG/ACT Nasal Suspension Administer 1 [place] into nostril in the morning. 0 Active [...] Problem Noted Date Diagnosed Date History of Jnqhj-Feviprnic-Lanne (WPW) syndrome 12/16/2023 Overview: S/p cardiac ablation 2006. Asymptomatic. Saw cardiology 12/04/22 who states ""The Qitwp-Bgncvqjmu-Gdblm he has been cured. She has no [...] repair at 4 months of age at [facility] [Doing well now, aged 9 [...] 11/04/2022 Other chronic allergic conjunctivitis 04/18/2008 11/04/2022 Eantm-Nviqviqfi-Rfial syndrome 12/24/2005 12/16/2023 Overview: - Luque Parkinson [...] -Declined genetic counseling -Per cardiology 12/04/22: "The Oqjfd-Vfdwjslcg-Ormmv he has been cured. She has no [...] money to get more. Never true 01/22/2023 [place] Depression Scale Answer Date Recorded [place] Depression Scale Total 0 12/12/2023 The thought [...] encounter Miscellaneous Notes * Telephone Encounter - Ayaan Boyle, BREANNA - 01/13/2024 12:55 PM EST Nothing currently in medical records folder at restaurant front manager. Did anyone take care of this? [...] 8:37 AM EST Liliana calling in from [employer] [facility] Asking if a medical records release form was received. She is looking to receive records regarding patients appointment with Dr. Kessler on 10/03/2023. She faxed form to [phone] on 01/08/2024. Call back number: [phone] documented in this encounter Plan of Treatment Upcoming Encounters Date Type Department Care Team (Late st Contact Info) Description 02/06/2024 10:45 AM EST Office Visit Gynecology/Obstetrics [facility] [address] [place] [address] Ruthy Trevino CRNP [address] [place] [address] 02/16/2024 10:30 AM EDT Office Visit Treating Plant Supervisor Obstetrics Maternal Medicine, [place] [address] [place], [place] [phone] Taurus Acevedo [address] [place] [address] 02/16/2024 10:30 AM EDT Imaging Radiology [facility], [place] [address] [place], [place] [phone] Health Maintenance Due Date Last Done Comments [...] filedocumented as of this encounter Care Teams Melter Loader Relationship Specialty Start Date End Date José Bearden MD [address] [place] [address] PCP - General 03/27/04 documented as of this encounter
--- OUTSIDE RECORDS SUMMARY | 2024-06-12 11:42 | External Medical Summary | Summary of Care ---
Author Name Unknown Organization [facility] Address [address] [place] [address] Phone [phone] Care Team Providers Care Ore Miner Blasting Name Role Phone José Bearden MD Primary Care Provider +1- [phone] Reason for Visit * Reason Onset Date Comments Advice 01/09/2024 Encounter Details Date Type Department Care Team ([facility] st Contact Info) Description 01/09/[address] [phone] Gagan Kessler MD [address] [place] [phone] Advice Allergies Active Allergy Reactions Criticality Noted Date Comments Lactose Intolerance 12/06/2005 documented as of this encounter (statuses as of 01/09/2024) Medications Medication Sig Dispensed Refills Start Date End Date Status Fluticasone Propionate 50 MCG/ACT Nasal Suspension Administer 1 [place] into nostril in the morning. 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 Asymptomatic. Saw cardiology 12/04/22 who states ""The Iqmep-Tiwehfsac-Pektu he has been cured. She has no [...] repair at 4 months of age at [facility] [Doing well now, aged 9 years] [...] 11/04/2022 Other chronic allergic conjunctivitis 04/18/2008 11/04/2022 Ipvvp-Sqfjpfztl-Xonou syndrome 12/24/2005 12/16/2023 Overview: - Luque Parkinson [...] -Declined genetic counseling -Per cardiology 12/04/22: "The Vsmxg-Kvpntbsdw-Mmnur he has been cured. She has no [...] money to get more. Never true 01/22/2023 [place] Depression Scale Answer Date Recorded [place] Depression Scale Total 0 12/12/2023 The thought [...] Miscellaneous Notes * Telephone Encounter - Ayaan Boyle OSA - 01/09/2024 9:30 AM EST Will fax records once request form is received * Telephone Encounter - Nicole Vasquez LPN - 01/09/2024 8:52 AM EST Was this form received? * Telephone Encounter - Geeta Juárez LPN - 01/09/2024 8:37 AM EST Liliana calling in from [employer] Asking if a medical records release form was received. She is looking to receive records regarding patients appointment with Dr. Kessler on 10/03/2023. She faxed form to [phone] on 01/08/2024. Call back number: [phone] documented in this encounter Plan of Treatment Upcoming Encounters Date Type Department Care Team (Late st Contact Info) Description 02/06/2024 10:45 AM EST Office Visit Gynecology/Obstetrics [facility] [address] [facility] [place] [address] Ruthy Trevino CRNP [address] [facility] [address] 02/16/2024 10:30 AM EDT Office Visit Manager Special Events Obstetrics Maternal Medicine, [place] [address] [place] [address] Taurus Acevedo, [address] [place] [address] 02/16/2024 10:30 AM EDT Imaging Radiology [place] [address] [place], [place] [address] Health Maintenance Due Date Last Done Comments [...] filedocumented as of this encounter Care Teams Ore Miner Blasting Relationship Specialty Start Date End Date José Bearden MD [address] [place] [address] PCP - General 03/27/04 documented as of this encounter
--- OUTSIDE RECORDS SUMMARY | 2024-06-12 11:42 | External Medical Summary | Summary of Care ---
Author Name Unknown Organization [facility] Address [address] [place] [address] Phone [phone] Care Team Providers Care Petroleum Geologist Name Role Phone José Bearden MD Primary Care Provider +1- [phone] Reason for Visit * Reason Onset Date Comments Advice 01/09/2024 Encounter Details Date Type Department Care Team ([facility] st Contact Info) Description 01/09/[address] [address] Gagan Kessler MD [address] [place] [phone] Advice Allergies Active Allergy Reactions Criticality Noted Date Comments Lactose Intolerance 12/06/2005 documented as of this encounter (statuses as of 01/14/2024) Medications Medication Sig Dispensed Refills Start Date End Date Status Fluticasone Propionate 50 MCG/ACT Nasal Suspension Administer 1 [place] into nostril in the morning. 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 Asymptomatic. Saw cardiology 12/04/22 who states ""The Ndrpa-Tgaewlizv-Adrum he has been cured. She has no [...] repair at 4 months of age at [facility] [Doing well now, aged 9 years] [...] 11/04/2022 Other chronic allergic conjunctivitis 04/18/2008 11/04/2022 Dvrav-Bqkhzsfmi-Buuap syndrome 12/24/2005 12/16/2023 Overview: - Luque Parkinson [...] -Declined genetic counseling -Per cardiology 12/04/22: "The Etlbq-Fgeckeinc-Yezav he has been cured. She has no [...] money to get more. Never true 01/22/2023 [place] Depression Scale Answer Date Recorded [place] Depression Scale Total 0 12/12/2023 The thought [...] encounter Miscellaneous Notes * Telephone Encounter - Jacquelin Bettencourt LPN - 01/14/2024 12:14 PM EST See encounter from 01/14. Was meant for [facility] * Telephone Encounter - Nadine Murillo LPN - 01/14/2024 9:27 AM EST Liliana from [employer] is calling. Is asking if the office received the medical records request. Made her aware that we have not received this yet. States that this was faxed to [phone] on 01/08/24 and 01/13/24. Will fax request again to [phone]. MARGUERITEI. * Telephone Encounter - Ayaan Boyle OSA - 01/13/2024 12:55 PM EST Nothing currently in medical records folder at front attendant. Did anyone take care of this? * [...] 8:37 AM EST Liliana calling in from [employer] Asking if a medical records release form was received. She is looking to receive records regarding patients appointment with Dr. Kessler on 10/03/2023. She faxed form to [phone] on 01/08/2024. Call back number: [phone] documented in this encounter Plan of Treatment Upcoming Encounters Date Type Department Care Team (Late st Contact Info) Description 02/06/2024 10:45 AM EST Office Visit Gynecology/Obstetrics [facility] [address] [facility] [place] [address] Ruthy Trevino CRNP [address] [facility] [address] 02/16/2024 10:30 AM EDT Office Visit Smelter Operator Obstetrics Maternal Medicine, [place] [address] [place], [place] [phone] Taurus Acevedo, [address] [place], [place] [phone] 02/16/2024 10:30 AM EDT Imaging Radiology [facility], [place] [address] [place], [place] [id number] Health Maintenance Due Date Last Done Comments [...] filedocumented as of this encounter Care Teams Petroleum Geologist Relationship Specialty Start Date End Date José Bearden MD [address] [place] [address] PCP - General 03/27/04 documented as of this encounter
--- OUTSIDE RECORDS SUMMARY | 2024-06-12 11:42 | External Medical Summary | Summary of Care ---
Author Name Unknown Organization [facility] Address [address] [place] [address] Phone [phone] Care Team Providers Care Packer And Carry Out Name Role Phone José Bearden MD Primary Care Provider +1- [phone] Reason for Visit * Reason Onset Date Comments Advice 01/09/2024 Encounter Details Date Type Department Care Team ([facility] st Contact Info) Description 01/09/[address] [address] Gagan Kessler MD [address] [place] [phone] Advice Allergies Active Allergy Reactions Criticality Noted Date Comments Lactose Intolerance 12/06/2005 documented as of this encounter (statuses as of 01/14/2024) Medications Medication Sig Dispensed Refills Start Date End Date Status Fluticasone Propionate 50 MCG/ACT Nasal Suspension Administer 1 [place] into nostril in the morning. 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 Asymptomatic. Saw cardiology 12/04/22 who states ""The Sqnev-Cnziwtdlh-Hujcu he has been cured. She has no [...] 11/04/2022 Other chronic allergic conjunctivitis 04/18/2008 11/04/2022 Cwoda-Mqdkhwyxf-Nwhrc syndrome 12/24/2005 12/16/2023 Overview: - Luque Parkinson [...] -Declined genetic counseling -Per cardiology 12/04/22: "The Frjvg-Plcancrzz-Utomw he has been cured. She has no [...] money to get more. Never true 01/22/2023 [place] Depression Scale Answer Date Recorded [place] Depression Scale Total 0 12/12/2023 The thought [...] - 01/14/2024 9:27 AM EST Liliana from [employer] is calling. Is asking if the office received the medical records request. Made her aware that we have not received this yet. States that this was faxed to [phone] on 01/08/24 and 01/13/24. Will fax request again to [phone]. [employer]. * Telephone Encounter - Ayaan Boyle OSA - 01/13/2024 12:55 PM EST Nothing currently in medical records folder at front end technician. Did anyone take care of this? * [...] is received * Telephone Encounter - Nicole Vaqsuez LPN - 01/09/2024 8:52 AM EST Was this form received? * Telephone Encounter - Geeta Juárez LPN - 01/09/2024 8:37 AM EST Liliana calling in from [employer] Asking if a medical records release form was received. She is looking to receive records regarding patients appointment with Dr. Kessler on 10/03/2023. She faxed form to [phone] on 01/08/2024. Call back number: [phone] documented in this encounter Plan of Treatment Upcoming Encounters Date Type Department Care Team (Late st Contact Info) Description 02/06/2024 10:45 AM EST Office Visit Gynecology/Obstetrics [facility] [address] [place] [address] Ruthy Trevino CRNP [address] [place] [address] 02/16/2024 10:30 AM EDT Office Visit Auxiliary Operator Obstetrics Maternal Medicine, [place] [address] [place] [address] Taurus Acevedo, [address] [place] [address] 02/16/2024 10:30 AM EDT Imaging Radiology [facility], [place] [address] [place], [place] [phone] Health Maintenance Due Date Last Done Comments [...] filedocumented as of this encounter Care Teams Packer And Carry Out Relationship Specialty Start Date End Date José Bearden MD [address] [place] [address] PCP - General 03/27/04 documented as of this encounter
[2024-06-12] MEDS ORDERED: HYDROCORTISONE ACETATE 25 MG SUPP PR PRN (11:47)
[2024-06-12] MEDS ORDERED: bisacodyL 10 MG SUPP PR PRN (11:47)
[2024-06-12] MEDS ORDERED: ACETAMINOPHEN 325 MG TAB PO PRN (11:47)
--- NOTE | 2024-06-12 11:52 | Delivery Summary ---
Vaginal Delivery Summary Date of Service June 12, 2024 Vaginal Delivery Summary DELIVERY NOTE Patient delivered a live male in left occiput anterior presentation there was no nuchal cord. was delivered and placed on mother's abdomen. Delayed cord clamping was performed. Cord blood is obtained Meconium is absent Placenta is spontaneously delivered. Placenta appears grossly normal and has 3 vessel cord Inspection of the perineum showed a first-degree midline laceration. Laceration is repaired in layers with 3-0 Vicryl in layers Rectal exam post repair showed good sphincter tone no sutures palpated in the rectum. Quantitative blood loss is 350 cc per Infants weight and scores are in the pediatric record Mother and baby are stable in in the recovery
[2024-06-12] MEDS: SODIUM CHLORIDE 0.9% 1,000 ML IV SCH (12:14)
--- NOTE | 2024-06-12 12:17 | Anesthesia Procedure Note ---
Date of Service June 12, 2024 Anesthesia Post Epidural Note Vital Signs Vital Signs: Temp Pulse Resp BP Pulse Ox 97.7 F 80 20 98/56 L 99 06/12/24 09:29 06/12/24 12:13 06/12/24 09:29 06/12/24 12:06/12/24 11:25 Notes Mental Status: alert / awake / arousable and participated in evaluation Nausea / Vomiting: adequately controlled Pain: adequately controlled Airway Patency, RR, SpO2: stable & adequate BP & HR: stable & adequate Hydration State: stable & adequate Neuraxial Anesthesia: was administered and sensory block is resolving Anesthetic Complications: no major complications apparent and Pt Satisfied with anesthetic care Epidural: Removed without complications and With tip intact
[2024-06-12] MEDS: DIPHTHER/TETAN/PERTUS Vaccine (Tdap, Adol/Adult) 0.5mL IM ONE (12:51)
[2024-06-12] MEDS: BENZOCAINE 20% SPRY 85 APPLN/85 GM CAN EXT PRN (15:07)
[2024-06-12] MEDS: IBUPROFEN 600 MG TAB PO PRN (17:23)
[2024-06-12] MEDS: DOCUSATE SODIUM 100 MG CAP PO SCH (21:29)
[2024-06-13 06:31] LABS: Hematocrit (blood only) 25.8 % (37.0-47.0); Hemoglobin 8.4 g/dl (12.0-16.0); Mean Corpuscular Hemoglobin 31.3 pg (25.0-34.0); Mean Corpuscular Hgb Conc 32.6 g/dL (32.0-36.0); Mean Corpuscular Volume 96.3 fL (80.0-100.0); Mean Platelet Volume 9.1 fL (9.4-12.4); Platelet Count 138 K/uL (130-400); RDW Coefficient of Variation 14.9 % (11.5-14.5); RDW Standard Deviation 52.5 fL (36.4-46.3); Red Blood Count 2.68 M/uL (4.20-5.40)
[2024-06-13 06:51] LABS: Basophils # (auto) 0.06 K/uL (0.00-0.20); Basophils % (auto) 0.9 %; Eosinophils # (auto) 0.12 K/uL (0.00-0.50); Eosinophils % (auto) 1.9 %; Immature Granulocytes # (auto) 0.36 K/uL (0.01-0.20); Immature Granulocytes % (auto) 5.6 %; Lymphocytes # (auto) 1.29 K/uL (1.20-3.40); Lymphocytes % (auto) 20.2 %; Monocytes # (auto) 0.39 K/uL (0.11-0.59); Monocytes % (auto) 6.1 %; Neutrophils # (auto) 4.18 K/uL (1.40-6.50); Neutrophils % (auto) 65.3 %; RBC Morphology Unremarkable
[2024-06-13] MEDS: PRENATAL VITAMIN 1 TAB PO SCH (09:18)
--- NOTE | 2024-06-13 11:52 | Obstetrical Progress Note ---
Date of Service June 13, 2024 Assessment & Plan (1) Normal course: PPD #1 pt doing well No complaints anticipate disch tomorrow Subjective Ambulation: ambulating normally Voiding: no voiding problems Passing Gas:: Yes Diet Tolerance:: regular diet Lochia:: Small Feeding Type:: breast feeding Review of Systems All systems reviewed & are unremarkable except as noted in HPI & below Physical Exam Constitutional WD/WN, vitals as above well developed and well nourished Eyes PERRL, conjunctivae normal, anicteric sclerae Neck trachea midline, no thyromegaly Respiratory normal respiratory effort, lungs clear to auscultation Auscultation: no crackles, no rales and no wheezes Cardiovascular RRR, no murmur, no edema Gastrointestinal (Abdomen) normal bowel sounds, soft, nontender, no hepatosplenomegaly Uterus is below umbilicus Musculoskeletal no cyanosis or clubbing, extremities motor strength 5/5 Skin no rashes, warm and dry Neurologic patellar DTR's 2+ bilat, sensation intact Psychiatric A+Ox3, euthymic affect Genitourinary normal external appearance Results & Data Vital Signs (Past 12 Hours) Vital Signs Temp Pulse Resp BP Pulse Ox O2 Del Method 06/13/24 08:00 36.6 C 76 18 96/61 L 99 Room Air 06/13/24 03:31 36.6 C 67 18 101/64 99 Room Air
[2024-06-13] MEDS: bisacodyL 5 MG TABEC PO SCH (21:17)
[2024-06-14 07:13] LABS: Hematocrit (blood only) 31.4 % (37.0-47.0); Hemoglobin 10.3 g/dl (12.0-16.0)
--- NOTE | 2024-06-14 08:17 | Obstetrical Progress Note ---
Date of Service June 14, 2024 Assessment & Plan (1) Normal course: Pt doing well No complaints D/c home with instructions Subjective Ambulation: ambulating normally Voiding: no voiding problems Passing Gas:: Yes Diet Tolerance:: regular diet Lochia:: Small Feeding Type:: breast feeding Review of Systems All systems reviewed & are unremarkable except as noted in HPI & below Physical Exam Constitutional WD/WN, vitals as above well developed and well nourished Eyes PERRL, conjunctivae normal, anicteric sclerae Neck trachea midline, no thyromegaly Respiratory normal respiratory effort, lungs clear to auscultation Auscultation: no crackles, no rales and no wheezes Cardiovascular RRR, no murmur, no edema Gastrointestinal (Abdomen) normal bowel sounds, soft, nontender, no hepatosplenomegaly Uterus is below umbilicus Musculoskeletal no cyanosis or clubbing, extremities motor strength 5/5 Skin no rashes, warm and dry Neurologic patellar DTR's 2+ bilat, sensation intact Psychiatric A+Ox3, euthymic affect Genitourinary normal external appearance Results & Data Vital Signs (Past 12 Hours) Vital Signs Temp Pulse Resp BP Pulse Ox O2 Del Method 06/14/24 07:30 36.7 C 79 18 107/70 97 Room Air 06/14/24 00:00 36.6 C 66 16 102/66 98 Room Air
== END 2024-06-14 10:05 | disposition home health service (06) | DRG 807 ==
LOC: OPB 01:29 → 4S1 01:34 → 4E2 14:39